=== PATIENT | female | born 1950 | race Hispanic/Latino ===

== ENCOUNTER 2017-03-10 10:43 | Emergency (ER) | payer MEDICARE, OTHER ==
[2017-03-10 10:51] VITALS: BP 127/78; PULSE 83; RESP 16; TEMP 97.6; O2SAT 96
--- NOTE | 2017-03-10 10:59 | C.PDOC ---
History Of Present Illness Patient is a 66 y/o female who presents to the ED with complaints of a rash on her trunk and back area for the past week. Patient admits to rash returning after short relief during the week. Denies using any cream or ointment, or a change in diet. Patient also admits to feeling itchy, and denies any trouble breathing. No other physical complaints at this time. Time Seen by Provider: 03/10/17 10:53 Chief Complaint (Nursing): Abnormal Skin Integrity History Per: Patient History/Exam Limitations: no limitations Onset/Duration Of Symptoms: Days Current Symptoms Are (Timing): Still Present Location Of Injury: Anterior: Abdomen, Posterior: Back Quality Of Symptoms: Itching Recent travel outside of the [place]: No Past Medical History Reviewed: Historical Data, Nursing Documentation, Vital Signs Vital Signs: Last Vital Signs Temp 97.6 F 03/10/17 10:49 Pulse 83 03/10/17 10:49 Resp 16 03/10/17 10:49 BP 127/78 03/10/17 10:49 Pulse Ox 96 03/10/17 11:23 - Medical History PMH: Hypercholesterolemia Surgical History: No Surg Hx Family History: States: No Known Family Hx - Social History Hx Alcohol Use: No Hx Substance Use: No - Immunization History Hx Influenza Vaccination: No Review Of Systems Eyes: Negative for: Pain ENT: Negative for: Ear Pain, Ear Discharge, Nose Congestion, Throat Pain Cardiovascular: Negative for: Chest Pain, Palpitations Respiratory: Negative for: Shortness of Breath Gastrointestinal: Negative for: Vomiting, Diarrhea Genitourinary: Negative for: Dysuria Musculoskeletal: Negative for: Neck Pain, Back Pain Skin: Positive for: Rash (trunk and back area. ) Neurological: Negative for: Weakness, Numbness, Headache, Dizziness Physical Exam - Physical Exam Appears: Well, Non-toxic, No Acute Distress Skin: Normal Color, Warm, Dry Head: Atraumatic, Normacephalic Eye(s): bilateral: Normal Inspection Nose: Normal, No Flaring Oral Mucosa: Moist Tongue: Normal Appearing, No Swelling Lips: Normal Appearing, No Swelling Throat: Normal, No Erythema, No Exudate, No Drooling Neck: Normal ROM Chest: Symmetrical Cardiovascular: Rhythm Regular, No Murmur Respiratory: Normal Breath Sounds, No Wheezing Extremity: Bilateral: Atraumatic, Normal Color And Temperature, Normal ROM Neurological/Psych: Oriented x3, Normal Speech, Other (no other focal defecits. ) Gait: Steady ED Course And Treatment O2 Sat by Pulse Oximetry: 96 (Room air ) Pulse Ox Interpretation: Normal Medical Decision Making Medical Decision Making: Plan: Antifungal cream was ordered and patient was told to apply BID. Suggested for patient to take Claritan or Gracie if symptoms persist. Disposition Counseled Patient/Family Regarding: Diagnosis, Need For Followup - Disposition Referrals: Rodrigo Kim [Staff Provider] - Disposition: HOME/ ROUTINE Disposition Time: 10:59 Condition: GOOD Additional Instructions: Please apply cream twice daily to affected areas Take Benadryl for any itching Follow up with master pilot if the symptoms persist Prescriptions: Miconazole 2% [Miconazole 2% Cream] 1 ea EXT BID #1 tube Instructions: Tinea Corporis (ED) Forms: [facility] (Polish) - POA Present On Arrival: None - Clinical Impression Clinical Impression: Tinea corporis - Scribe Statement The provider has reviewed the documentation as recorded by the Scribe Cristine Barrett All medical record entries made by the Scribe were at my direction and personally dictated by me. I have reviewed the chart and agree that the record accurately reflects my personal performance of the history, physical exam, medical decision making, and the department course for this patient. I have also personally directed, reviewed, and agree with the discharge instructions and disposition.
== END 2017-03-10 11:12 | disposition home or self-care (01) ==
LOC: C.ER 10:43
DX: B35.4 Tinea corporis (principal)

== ENCOUNTER 2017-06-12 08:14 | Inpatient (IN) | payer MEDICARE, OTHER ==
[2017-06-12] MEDS ORDERED: Albuterol-Ipratrop 3 mg / 0.5 (3 ml) UD IH STA (08:55)
[2017-06-12 09:28] LABS: BASO % 0.4 % (0.0-2.0); EOS % 0.3 % (0.0-4.0); HEMOGLOBIN 14.6 g/dL (11.0-16.0); LYMPH # 1.8 K/uL (1.0-4.3); LYMPH % 22.3 % (20.0-40.0); MEAN CELL VOLUME 93.1 fL (81.0-99.0); MEAN CORPUSCULAR HGB CONC 34.4 g/dL (33.0-37.0); MONO # 0.5 K/uL (0.0-0.8); MONO % 5.8 % (0.0-10.0); NEUT # 5.6 K/uL (1.8-7.0); NEUT % 71.2 % (50.0-75.0); RBC 4.56 Mil/uL (3.80-5.20); RED CELL DISTRIBUTION WIDTH 12.8 % (11.5-14.5); WHITE BLOOD COUNT 7.9 K/uL (4.8-10.8)
--- NOTE | 2017-06-12 09:28 | RAD ---
PROCEDURE: CHEST RADIOGRAPH, 1 VIEW HISTORY: SOB, cough, smoker COMPARISON: 10/31/2016 chest x-ray and CT chest 12/14/2016 FINDINGS: LUNGS: The linear opacities are partly more horizontally oriented. Discoid atelectasis and/or scarring is consistent with this no interval dense consolidation suggested. The UC referenced [address] pulmonary nodules are not appreciate on this exam -for reassessment here, if desired, CT chest imaging without contrast would be needed. PLEURA: No pneumothorax or pleural fluid seen. CARDIOVASCULAR: Normal. OSSEOUS STRUCTURES: No significant abnormalities. VISUALIZED UPPER ABDOMEN: Normal. OTHER FINDINGS: None. IMPRESSION: No interval consolidation. Left basal discoid atelectasis and/or scarring Comments: Please note the CT referenced tiny 3 mm right apical pulmonary nodule is not appreciated (and not expected to be appreciated) on this chest x-ray- given chest x-rays lesser resolution.
[2017-06-12] MEDS ORDERED: Albuterol-Ipratrop 3 mg / 0.5 (3 ml) UD ONE (09:34)
[2017-06-12 09:36] LABS: INR 1.2; PROTHROMBIN TIME 13.4 SECONDS (9.7-12.2)
[2017-06-12 09:46] LABS: ALB/GLOB RATIO 1.2 (1.0-2.1); ALT/SGPT 22 U/L (9-52); AST/SGOT 16 U/L (14-36); BLOOD UREA NITROGEN 15 mg/dL (7-17); CALCIUM 9.1 mg/dl (8.6-10.4); GFR AFRICAN-AMERICAN > 60; GFR NON-AFRICAN AMERICAN > 60; MAGNESIUM 1.6 mg/dL (1.6-2.3)
[2017-06-12 09:47] LABS: SQUAMOUS EPITHIAL < 1 /hpf (0-5); URINE BILIRUBIN NEGATIVE (NEGATIVE); URINE BLOOD 2+ (NEGATIVE); URINE CLARITY Clear (Clear); URINE COLOR Yellow (YELLOW); URINE GLUCOSE (UA) NORMAL (Normal); URINE LEUKOCYTE ESTERASE NEG Leu/uL (Negative); URINE NITRATE NEGATIVE (NEGATIVE); URINE PROTEIN 1+ mg/dL (NEGATIVE); URINE UROBILINOGEN NORMAL mg/dL (0.2-1.0)
[2017-06-12 10:00] LABS: B-TYPE NATRIURETIC PEPTIDE 288 pg/mL (0-900)
[2017-06-12] MEDS ORDERED: Lactated Ringer's 1,000 ML IVB STA (10:02)
[2017-06-12 10:18] LABS: FREE T4 1.03 ng/dL (0.78-2.19)
[2017-06-12] MEDS ORDERED: Lactated Ringer's 0 ML ONE (10:30)
[2017-06-12] MEDS ORDERED: Sodium Chloride 0.9% 1,000 ML ONE (10:34)
[2017-06-12] MEDS ORDERED: Sodium Chloride 0.9% 1,000 ML IV ONE (10:56)
--- NOTE | 2017-06-12 11:23 | CT ---
PROCEDURE: CT Chest, Abdomen and Pelvis without intravenous contrast HISTORY: Cough (smoker), weight loss, flank pain COMPARISON: Chest CT without contrast 12/14/2016. TECHNIQUE: Radiation dose: Total exam DLP = 380.55 mGy-cm. This CT exam was performed using one or more of the following dose reduction techniques: Automated exposure control, adjustment of the mA and/or kV according to patient size, and/or use of iterative reconstruction technique. FINDINGS: CT CHEST WITHOUT CONTRAST: LUNGS: Restrained motion degrades quality this examination significantly. Interval atelectasis or pneumonia is seen affecting the left lower lobe medial basilar subsegments predominantly. Underlying lesion is difficult to exclude here though one is not clearly identified. No additional potential infiltrate bilaterally. A 4 mm questionable noncalcified nodule is seen in image 30 series 4, separate from the previously described right apical 3 mm nodule which is currently not seen, likely is a function of history motion artifact. Again clinically correlate with respect to the patient fractures risk factors for lung cancer. Note is made of likely mucoid material in the dependent distal trachea with the main right and left bronchi appearing widely patent. MEDIASTINUM: Unremarkable. Normal caliber aorta and pulmonary arterial trunk. Normal size heart. LYMPH NODES: 1.4 x 1.1 cm aortopulmonary window lymph node is identified with otherwise shotty mediastinal lymph nodes seen including the bilateral hilar regions. The lack of intravenous contrast limits evaluation of the mediastinum. PLEURA: Unremarkable. No pneumothorax. No pleural effusion bilaterally. Trace pericardial effusion appears stable. BONES: Unremarkable. OTHER FINDINGS: None. CT ABDOMEN AND PELVIS: LIVER: Two stable small cysts in the left lobe liver with a dominant cyst measuring 2.3 cm. A tiny 3 mm lucency is again seen lateral to this dominant cyst remaining too small to characterize. The 2nd cyst seen more posteriorly and laterally measures only 9 mm and 5 Hounsfield units. GALLBLADDER AND BILE DUCTS: Unremarkable. PANCREAS: Unremarkable. No gross lesion or ductal dilatation. SPLEEN: Unremarkable. ADRENALS: Unremarkable. No mass. KIDNEYS AND URETERS: An obstructing left renal calculus again seen the left renal pelvis measuring 2.2 x 1.7 cm persistent moderate left hydronephrosis identified a 7.5 mm calculus is seen at the lower pole left kidney which is nonobstructive as well as an additional adjacent punctate calcification lateral to it. Pinpoint calculi are identified in the upper pole left kidney as well. A small parenchymal calcifications seen at the midpole right kidney and at the upper pole as well. No definitive intrarenal calculus seen in the right kidney. VASCULATURE: No aneurysm formation seen involving the abdominal aorta however atherosclerotic calcifications seen the inferior abdominal aorta extending into the iliac arterial system bilaterally. BOWEL: Unremarkable. No obstruction. No gross mural thickening. APPENDIX: Normal appendix. PERITONEUM: Unremarkable. No free fluid. No free air. LYMPH NODES: Unremarkable. No enlarged lymph nodes. BLADDER: Unremarkable. REPRODUCTIVE: Unremarkable. BONES: No acute fracture. OTHER FINDINGS: None. IMPRESSION: 1. Respiratory motion artifacts limit evaluation of the chest. Left lower lobe atelectasis is identified however underlying pneumonia is not excluded given medial unilateral appearance/distribution of this finding. Underlying lesion not completely excluded either and follow-up chest CT is recommended after therapy. 2. Likely stable tiny right upper lobe nodules identified. Clinically correlate with risk factors for developing lung cancer. Appears fractures are present along cast on follow-up chest CT is advised in 1 year. 3. Borderline mediastinal lymphadenopathy. 4. Trace pericardial effusion again evident. 5. Stable moderate left hydronephrosis due to an apparent 2.2 cm left renal pelvis calcification. Additional non obstructing intrarenal calculi are identified in the left kidney with none definitively shown at the right kidney. 6. Stable hepatic cysts and solitary tiny hepatic lucency left lobe, limited evaluation due lack of intravenous contrast. 7. No significant lymphadenopathy.
--- NOTE | 2017-06-12 12:08 | C.PDOC ---
Time Seen by Provider: 06/12/17 08:38 Chief Complaint (Nursing): Dizziness/Lightheaded History Per: Patient Onset/Duration Of Symptoms: Days (about 2 months) Current Symptoms Are (Timing): Worse Current Symptoms: Generalized weakness Possible Causative Factor(s): Decreased PO Intake Fall Associated With With Symptoms: No Severity: Severe Additional History Per: Prior Records - Symptoms Of CVA Recent Head Trauma: No Past Medical History Reviewed: Historical Data, Nursing Documentation, Vital Signs Vital Signs: Last Vital Signs Temp 98.9 F 06/12/17 08:23 Pulse 87 06/12/17 11:10 Resp 20 06/12/17 11:10 BP 144/82 06/12/17 11:10 Pulse Ox 94 L 06/12/17 11:11 - Medical History PMH: COPD (?), Hypercholesterolemia, Kidney Stones Surgical History: No Surg Hx Family History: States: Unknown Family Hx - Social History Hx Tobacco Use: Yes Hx Alcohol Use: No Hx Substance Use: No - Immunization History Hx Tetanus Toxoid Vaccination: No Hx Influenza Vaccination: Yes Hx Pneumococcal Vaccination: No Review Of Systems Except As Marked, All Systems Reviewed And Found Negative. Constitutional: Positive for: Weakness, Malaise, Weight loss (Pt states she had 80 pounds of unintentional weight loss) Respiratory: Positive for: Cough, Shortness of Breath, Sputum Gastrointestinal: Negative for: Vomiting, Diarrhea Musculoskeletal: Positive for: Back Pain. Negative for: Neck Pain Skin: Negative for: Rash Neurological: Negative for: Seizures Physical Exam - Physical Exam Appears: Chronically Ill, Other (Cachectic) Skin: Normal Color, Warm, Dry, No Rash Head: Atraumatic, Normacephalic Eye(s): bilateral: PERRL, EOMI Oral Mucosa: Dry Neck: Normal ROM, Supple Cardiovascular: Rhythm Regular Respiratory: Rhonchi (left lower) Gastrointestinal/Abdominal: Soft, No Tenderness Back: CVA Tenderness (left) Extremity: Normal ROM, No Pedal Edema Neurological/Psych: Oriented x3, Normal Motor, Normal Sensation ED Course And Treatment - Laboratory Results Result Diagrams: 06/12/17 09:22 06/12/17 09:22 ECG: Interpreted By Me, Viewed By Me ECG Rhythm: Sinus Rhythm, Nonspecific Changes Rate From EC O2 Sat by Pulse Oximetry: 90 (on RA) Pulse Ox Interpretation: Abnormal Interpretation Of Abnormal: Hypoxia on RA - CT Scan/US CT Chest/Abdomen Other Rad Studies (CT/US): Read By Radiologist, Radiology Report Reviewed CT/US Interpretation: IMPRESSION: 1. Respiratory motion artifacts limit evaluation of the chest. Left lower lobe atelectasis is identified however underlying pneumonia is not excluded given medial unilateral appearance/ distribution of this finding. Underlying lesion not completely excluded either and follow-up chest CT is recommended after therapy. 2. Likely stable tiny right upper lobe nodules identified. Clinically correlate with risk factors for developing lung cancer. Appears fractures are present along cast on follow- up chest CT is advised in 1 year. 3. Borderline mediastinal lymphadenopathy. 4. Trace pericardial effusion again evident. 5. Stable moderate left hydronephrosis due to an apparent 2.2 cm left renal pelvis calcification. Additional non obstructing intrarenal calculi are identified in the left kidney with none definitively shown at the right kidney. 6. Stable hepatic cysts and solitary tiny hepatic lucency left lobe, limited evaluation due lack of intravenous contrast. 7. No significant lymphadenopathy. Progress - Interventions Interventions:: Observation, Intravenous fluid, Oxygen - Medications Administered Inhaled nebulized: Anticholinergic, Beta-2 agonist - Data Reviewed Data Reviewed: Lab, Diagnostic imaging, EKG, Old records - Patient Status Patient status: Unchanged - Continuity of Care Discussed patient case with:: Patient, ED Nurse, Covering for PMD - Patient Plan Patient Plan: Admission Disposition Discussed With : Bryson Schwab Comment: He accepted pt on hospitalist service. Doctor Will See Patient In The: Hospital Counseled Patient/Family Regarding: Studies Performed, Diagnosis, Smoking Cessation - Disposition Disposition: HOSPITALIZED Disposition Time: 12:11 Condition: FAIR Instructions: Weakness (ED) - Clinical Impression Clinical Impression: Generalized weakness, Weight loss, Hydronephrosis of left kidney, LLL pneumonia
[2017-06-12] MEDS ORDERED: cefTRIAXone IV 1 gm in Dextros 50 ML IVPB ONE (12:12)
[2017-06-12] MEDS ORDERED: Potassium Chloride 20 mEq ER Tab PO ONE ×2 (12:30→13:14)
--- NOTE | 2017-06-12 13:42 | CP.PCM.HP ---
<Vitaly Louis Savannah - Last Filed: 06/12/17 15:14> History of Present Illness - History of Present Illness History of Present Illness: CC: "I feel dizzy" HPI: Mrs House is a 67 year old indonesian speaking female who presented to the ER by ambulance for 2 weeks of worsening dizziness and lightheadedness. She states that she occasionally feels as if the room is spinning. She denies syncopal episodes or falls. 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 She is a current smoker and has a 40 pack year smoking history. She states that she's lost 80 lbs in the last 3 months secondary to decreased appetite. 2 months ago she was diagnosed with pneumonia and completed a 2 week course of antibiotics. She states that since that time she has had a productive cough with white sputum production, which is worse in the mornings. In 12/2016 she had a breast ultrasound/mammography which showed a hypoechoic nodule in the right breast, possibly a solid nodule, which was a low suspicion for malignancy. She denies chest pain, abdominal pain, dysuria, fever, chills, nausea, vomiting, focal deficits, seizure activity, diarrhea. 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 absent: Chills, Fever - EENT Eyes: absent: Change in Vision Nose/Mouth/Throat: absent: Nasal Congestion - Cardiovascular Cardiovascular: absent: Chest Pain - Respiratory Respiratory: Cough, Dyspnea, Dyspnea on Exertion. absent: Hemoptysis - Gastrointestinal Gastrointestinal: absent: Abdominal Pain - Genitourinary Genitourinary: absent: Change in Urinary Stream, Dysuria - Reproductive: Female Reproductive:Female: Post Menopausal - Musculoskeletal Musculoskeletal: Back Pain - Integumentary Integumentary: absent: Changing Lesions - Neurological Neurological: Dizziness, Vertigo. absent: Frequent Falls Past Patient History - Past Social History Smoking Status: Heavy Smoker > 10 Cigarettes Daily - CARDIAC Hx Hypercholesterolemia: Yes - PULMONARY Hx Chronic Obstructive Pulmonary Disease (COPD): Yes (?) - RENAL Hx Kidney Stones: Yes - PSYCHIATRIC Hx Substance Use: No - SURGICAL HISTORY Hx Surgeries: No - ANESTHESIA Hx Anesthesia: No Hx Anesthesia Reactions: No Meds Allergies/Adverse Reactions: Allergies Allergy/AdvReac Type Severity Reaction Status Date / Time No Known Allergies Allergy Verified 06/12/17 08:26 Physical Exam - Constitutional Appears: No Acute Distress, Cachectic - Head Exam Head Exam: ATRAUMATIC, NORMAL INSPECTION - Eye Exam Eye Exam: EOMI Pupil Exam: PERRL - ENT Exam ENT Exam: Mucous Membranes Moist - Neck Exam Neck exam: Positive for: Full Rom, Normal Inspection - Respiratory Exam Respiratory Exam: Decreased Breath Sounds, Rhonchi Additional comments: Bibasilar rhonchi and decreased breath sounds throughout - Cardiovascular Exam Cardiovascular Exam: REGULAR RHYTHM. absent: Bradycardia, Tachycardia, JVD, Systolic Murmur - GI/Abdominal Exam GI & Abdominal Exam: Normal Bowel Sounds, Soft. absent: Distended, Firm, Guarding, Tenderness - Extremities Exam Extremities exam: Positive for: normal capillary refill, normal inspection, pedal pulses present - Back Exam Back exam: CVA tenderness (L), NORMAL INSPECTION - Neurological Exam Neurological exam: Alert, Oriented x3 - Psychiatric Exam Psychiatric exam: Normal Affect, Normal Mood - Skin Skin Exam: Intact, Normal Color, Warm Additional comments: dermatitis stasis in left lower extremity near ankle Results - Vital Signs Recent Vital Signs: Last Vital Signs Temp 99.1 F 06/12/17 13:32 Pulse 90 06/12/17 13:32 Resp 20 06/12/17 13:32 BP 159/83 H 06/12/17 13:32 Pulse Ox 92 L 06/12/17 13:32 - Labs Result Diagrams: 06/12/17 09:22 06/12/17 09:22 Labs: Laboratory Results - last 24 hr 06/12/17 06/12/17 06/12/17 09:22 09:22 09:22 WBC 7.9 RBC 4.56 Hgb 14.6 Hct 42.5 MCV 93.1 MCH 32.0 H MCHC 34.4 RDW 12.8 Plt Count 231 MPV 7.0 L Neut % (Auto) 71.2 Lymph % (Auto) 22.3 [place] % (Auto) 5.8 Eos % (Auto) 0.3 Baso % (Auto) 0.4 Neut # 5.6 Lymph # 1.8 [place] # 0.5 Eos # 0.0 Baso # 0.0 PT 13.4 H INR 1.2 APTT 30 Sodium 134 Potassium 3.5 L Chloride 93 L Carbon Dioxide 37 H Anion Gap 8 L BUN 15 Creatinine 0.4 L Est GFR ( Amer) > 60 Est GFR (Non-Af Amer) > 60 Random Glucose 114 H Calcium 9.1 Phosphorus 3.2 Magnesium 1.6 Total Bilirubin 0.8 AST 16 ALT 22 Alkaline Phosphatase 39 Troponin I < 0.0120 NT-Pro-B Natriuret Pep 288 Total Protein 7.4 Albumin 4.0 Globulin 3.4 Albumin/Globulin Ratio 1.2 Free T4 TSH 3rd Generation Urine Color Urine Clarity Urine pH Ur Specific [place] Urine Protein Urine Glucose (UA) Urine Ketones Urine Blood Urine Nitrate Urine Bilirubin Urine Urobilinogen Ur Leukocyte Esterase Urine WBC (Auto) Urine RBC (Auto) Ur Squamous Epith Cells 06/12/17 06/12/17 09:22 09:37 WBC RBC Hgb Hct MCV MCH MCHC RDW Plt Count MPV Neut % (Auto) Lymph % (Auto) [place] % (Auto) Eos % (Auto) Baso % (Auto) Neut # Lymph # [place] # Eos # Baso # PT INR APTT Sodium Potassium Chloride Carbon Dioxide Anion Gap BUN Creatinine Est GFR ( Amer) Est GFR (Non-Af Amer) Random Glucose Calcium Phosphorus Magnesium Total Bilirubin AST ALT Alkaline Phosphatase Troponin I NT-Pro-B Natriuret Pep Total Protein Albumin Globulin Albumin/Globulin Ratio Free T4 1.03 TSH 3rd Generation 0.65 Urine Color Yellow Urine Clarity Clear Urine pH 7.0 Ur Specific [place] 1.014 Urine Protein 1+ H Urine Glucose (UA) Normal Urine Ketones Negative Urine Blood 2+ H Urine Nitrate Negative Urine Bilirubin Negative Urine Urobilinogen Normal Ur Leukocyte Esterase Neg Urine WBC (Auto) 4 Urine RBC (Auto) 32 H Ur Squamous Epith Cells < 1 Assessment & Plan (1) Borderline low O2 saturation Assessment and Plan: 40 pack year smoking hx; productive cough w/ white sputum for 2 months; recently treated for pneumonia in 03/2017; Atelectasis vs pneumonia; No leukocytosis, afebrile Pulmonology consult, Dr Pineda Nasal cannula 2L ABG ordered for baseline values F/U mycoplasma, legionella, strep pneumoniae F/U procalcitonin F/U blood culture, urine culture, sputum culture Imaging: CT chest/abd/pelvis 06/12: (1) Respiratory motion artifacts limit evaluation of the chest. Left lower lobe atelectasis is identified however underlying pneumonia is not excluded given medial unilateral appearance/distribution of this finding. Underlying lesion not completely excluded either and follow-up chest CT is recommended after therapy. (2) Likely stable tiny right upper lobe nodules identified. Clinically correlate with risk factors for developing lung cancer. Appears fractures are present along cast on follow-up chest CT is advised in 1 year. Meds: Duonebs INH Q6h PRN Moxifloxacin 400mg IVPB QD started 06/12 Status: Acute (2) Hypertension Assessment and Plan: Con't home med lisinopril 10mg PO QD Status: Acute (3) Hyperlipidemia Assessment and Plan: F/U lipid panel Con't home med crestor 20mg PO HS Status: Acute (4) Smoking greater than 40 pack years Assessment and Plan: 40 pack year smoking history; currently smokes 1/2 pack per day Prescribed chantix outpatient but not compliant Nicotine patch TD QD Status: Acute (5) Weight loss, unintentional Assessment and Plan: 90 lb weight loss in 3 months 2/2 decreased appetite; 40 pack year smoking hx; prescribed cyproheptadine outpatient but pt states it did not help her Heme/Onc consult, Dr Page F/U vitamin B12, Folate, Iron Studies F/U HIV panel, hepatitis panel Imaging: Breast ultrasound/mammography 12/2016: Hypoechoic nodule in the 5-6 o'clock axis of the right breast with mild macro lobulation, possibly solid nodule. Low suspicion for malignancy. BIRADS 3. Status: Acute (6) Prophylactic measure Assessment and Plan: Protonix 40mg PO QD SCDs, Heparin 5000u SC Q8H Heart Healthy Diet Status: Acute <Bryson Schwab H - Last Filed: 06/12/17 17:54> Results - Vital Signs Recent Vital Signs: Last Vital Signs Temp 98.7 F 06/12/17 15:00 Pulse 85 06/12/17 15:00 Resp 20 06/12/17 15:00 BP 137/83 06/12/17 15:00 Pulse Ox 93 L 06/12/17 15:00 - Labs Result Diagrams: 06/12/17 09:22 06/12/17 09:22 Labs: Laboratory Results - last 24 hr 06/12/17 06/12/17 06/12/17 09:22 09:22 09:22 WBC 7.9 RBC 4.56 Hgb 14.6 Hct 42.5 MCV 93.1 MCH 32.0 H MCHC 34.4 RDW 12.8 Plt Count 231 MPV 7.0 L Neut % (Auto) 71.2 Lymph % (Auto) 22.3 [place] % (Auto) 5.8 Eos % (Auto) 0.3 Baso % (Auto) 0.4 Neut # 5.6 Lymph # 1.8 [place] # 0.5 Eos # 0.0 Baso # 0.0 PT 13.4 H INR 1.2 APTT 30 Sodium 134 Potassium 3.5 L Chloride 93 L Carbon Dioxide 37 H Anion Gap 8 L BUN 15 Creatinine 0.4 L Est GFR ( Amer) > 60 Est GFR (Non-Af Amer) > 60 Random Glucose 114 H Hemoglobin A1c Calcium 9.1 Phosphorus 3.2 Magnesium 1.6 Iron Total Bilirubin 0.8 AST 16 ALT 22 Alkaline Phosphatase 39 Troponin I < 0.0120 NT-Pro-B Natriuret Pep 288 Total Protein 7.4 Albumin 4.0 Globulin 3.4 Albumin/Globulin Ratio 1.2 Free T4 TSH 3rd Generation Urine Color Urine Clarity Urine pH Ur Specific [place] Urine Protein Urine Glucose (UA) Urine Ketones Urine Blood Urine Nitrate Urine Bilirubin Urine Urobilinogen Ur Leukocyte Esterase Urine WBC (Auto) Urine RBC (Auto) Ur Squamous Epith Cells 06/12/17 06/12/17 06/12/17 09:22 09:37 17:10 WBC RBC Hgb Hct MCV MCH MCHC RDW Plt Count MPV Neut % (Auto) Lymph % (Auto) [place] % (Auto) Eos % (Auto) Baso % (Auto) Neut # Lymph # [place] # Eos # Baso # PT INR APTT Sodium Potassium Chloride Carbon Dioxide Anion Gap BUN Creatinine Est GFR ( Amer) Est GFR (Non-Af Amer) Random Glucose Hemoglobin A1c 5.7 Calcium Phosphorus Magnesium Iron Total Bilirubin AST ALT Alkaline Phosphatase Troponin I NT-Pro-B Natriuret Pep Total Protein Albumin Globulin Albumin/Globulin Ratio Free T4 1.03 TSH 3rd Generation 0.65 Urine Color Yellow Urine Clarity Clear Urine pH 7.0 Ur Specific [place] 1.014 Urine Protein 1+ H Urine Glucose (UA) Normal Urine Ketones Negative Urine Blood 2+ H Urine Nitrate Negative Urine Bilirubin Negative Urine Urobilinogen Normal Ur Leukocyte Esterase Neg Urine WBC (Auto) 4 Urine RBC (Auto) 32 H Ur Squamous Epith Cells < 1 06/12/17 17:10 WBC RBC Hgb Hct MCV MCH MCHC RDW Plt Count MPV Neut % (Auto) Lymph % (Auto) [place] % (Auto) Eos % (Auto) Baso % (Auto) Neut # Lymph # [place] # Eos # Baso # PT INR APTT Sodium Potassium Chloride Carbon Dioxide Anion Gap BUN Creatinine Est GFR ( Amer) Est GFR (Non-Af Amer) Random Glucose Hemoglobin A1c Calcium Phosphorus Magnesium Iron 17 L Total Bilirubin AST ALT Alkaline Phosphatase Troponin I NT-Pro-B Natriuret Pep Total Protein Albumin Globulin Albumin/Globulin Ratio Free T4 TSH 3rd Generation Urine Color Urine Clarity Urine pH Ur Specific [place] Urine Protein Urine Glucose (UA) Urine Ketones Urine Blood Urine Nitrate Urine Bilirubin Urine Urobilinogen Ur Leukocyte Esterase Urine WBC (Auto) Urine RBC (Auto) Ur Squamous Epith Cells Attending/Attestation - Attestation I have personally seen and examined this patient.: Yes I have fully participated in the care of the patient.: Yes I have reviewed all pertinent clinical information: Yes Notes (Text): 06/12/17 17:54 Medical attending: Patient was seen and examined by me, reviewed the above note by claim review medical director and agree. This is a very nice 67-year-old female who unfortunately may have some underlying malignancy. She reports having almost a 90 pound weight loss over short period of time. She also reports a very poor appetite. She appears very cachectic and weak in appearance. There is a history of heavy smoking, as well as a history of potentially suspicious breast lesions. She has had mammograms and breast ultrasounds. CT scan of the chest abdomen and pelvis was done, the areas the chest suggests several findings which may include pneumonia, atelectasis, and possibly a malignancy. At this time to have the patient on IV antibiotics. We're also checking cultures as well Because of her heavy smoking history she has a low SPO2 on room air. The numbers that I saw that were recorded were in the 90, 91, and 92. We suggested that she wear nasal cannula however she refused this. She is probably a CO2 retainer as her serum bicarbonate is 34. Regular check an ABG as well just to the see if this matches up. Because of the extensive history of smoking, weight loss, or suspicions for potential lung malignancy is higher than usual so will try to the patient to have a pulmonology evaluation as well as a hematology oncology evaluation Thank you very much, Bryson Schwab
[2017-06-12] MEDS ORDERED: Moxifloxacin IV 400mg/250ml NS 400 MG/250 ML BAG IVPB SCH (14:45)
[2017-06-12] MEDS: Azithromycin 500 MG in Sodium Chloride 0.9% 250 ML IVPB ONE ×2 (14:47→17:48)
[2017-06-12] MEDS ORDERED: Azithromycin 500 MG in Sodium Chloride 0.9% 250 ML IVPB ONE (16:00)
[2017-06-12 17:45] LABS: IRON 17 ug/dL (37-170)
[2017-06-12 17:55] LABS: TOTAL IRON BINDING CAPACITY 200 ug/dL (250-450)
[2017-06-12 17:59] LABS: % IRON SATURATION 9 (20-55)
--- NOTE | 2017-06-12 18:00 | CP.PCM.CON ---
History of Present Illness - History of Present Illness History of Present Illness: 67 year old female with a history of long standing tobacco abuse, presenting to the ER for weakness and unintentional weightloss. The patient reports to losing about 70 pounds consistently over 3 years. She notes her appetite has been slowly diminishing and she does not eat much. She denies fevers and chills. She denies abnormal bleeding and bruising. She is unsure if she is depressed. Past medical history: Tobacco abuse, unintentional weightloss Past surgical history: Denies Family history: Denies hematologic and oncologic problems Social history: 1/2 ppd x 40 years, denies alcohol, and illicit drug use. Allergies: NKA Review of systems: All remaining review of systems including HEENT, cardiovascular, respiratory, gastrointestinal, genitourinary, musculoskeletal, dermatologic, neurologic and psychiatric are negative unless mentioned in the HPI. Past Patient History - Past Medical History & Family History Past Medical History?: Yes - Past Social History Smoking Status: Heavy Smoker > 10 Cigarettes Daily - CARDIAC Hx Hypercholesterolemia: Yes - PULMONARY Hx Chronic Obstructive Pulmonary Disease (COPD): Yes (?) - RENAL Hx Kidney Stones: Yes - MUSCULOSKELETAL/RHEUMATOLOGICAL Hx Falls: No - PSYCHIATRIC Hx Substance Use: No - SURGICAL HISTORY Hx Surgeries: No - ANESTHESIA Hx Anesthesia: No Hx Anesthesia Reactions: No Meds Allergies/Adverse Reactions: Allergies Allergy/AdvReac Type Severity Reaction Status Date / Time No Known Allergies Allergy Verified 06/12/17 08:26 - Medications Medications: Current Medications Albuterol/Ipratropium (Duoneb 3 Mg/0.5 Mg (3 Ml) Ud) 3 ml INH RQ6 PRN PRN Reason: Shortness of Breath Heparin Sodium (Porcine) (Heparin) 5,000 units SC Q8 [facility] Lisinopril (Zestril) 10 mg PO QAM [facility] Moxifloxacin HCl (Avelox) 400 mg PO DAILY [facility] Last Admin: 06/12/17 17:46 Dose: 400 mg Nicotine (Nicoderm Cq) 1 patch TD DAILY [facility] Pantoprazole Sodium (Protonix Ec Tab) 40 mg PO DAILY [facility] Rosuvastatin Calcium (Crestor) 20 mg PO HS [facility] Physical Exam - Head Exam Head Exam: ATRAUMATIC - Eye Exam Eye Exam: Normal appearance - ENT Exam ENT Exam: Mucous Membranes Dry - Respiratory Exam Respiratory Exam: NORMAL BREATHING PATTERN - Cardiovascular Exam Cardiovascular Exam: +S1, +S2 - GI/Abdominal Exam GI & Abdominal Exam: Normal Bowel Sounds - Extremities Exam Extremities exam: Positive for: normal inspection - Neurological Exam Neurological exam: Oriented x3 - Psychiatric Exam Psychiatric exam: Normal Affect, Normal Mood - Skin Skin Exam: Warm Results - Vital Signs Recent Vital Signs: Last Vital Signs Temp 98.7 F 06/12/17 15:00 Pulse 85 06/12/17 15:00 Resp 20 06/12/17 15:00 BP 137/83 06/12/17 15:00 Pulse Ox 93 L 06/12/17 15:00 - Labs Result Diagrams: 06/12/17 09:22 06/12/17 09:22 Labs: Laboratory Results - last 24 hr 06/12/17 06/12/17 06/12/17 09:22 09:22 09:22 WBC 7.9 RBC 4.56 Hgb 14.6 Hct 42.5 MCV 93.1 MCH 32.0 H MCHC 34.4 RDW 12.8 Plt Count 231 MPV 7.0 L Neut % (Auto) 71.2 Lymph % (Auto) 22.3 [place] % (Auto) 5.8 Eos % (Auto) 0.3 Baso % (Auto) 0.4 Neut # 5.6 Lymph # 1.8 [place] # 0.5 Eos # 0.0 Baso # 0.0 PT 13.4 H INR 1.2 APTT 30 Sodium 134 Potassium 3.5 L Chloride 93 L Carbon Dioxide 37 H Anion Gap 8 L BUN 15 Creatinine 0.4 L Est GFR ( Amer) > 60 Est GFR (Non-Af Amer) > 60 Random Glucose 114 H Hemoglobin A1c Calcium 9.1 Phosphorus 3.2 Magnesium 1.6 Iron Total Bilirubin 0.8 AST 16 ALT 22 Alkaline Phosphatase 39 Troponin I < 0.0120 NT-Pro-B Natriuret Pep 288 Total Protein 7.4 Albumin 4.0 Globulin 3.4 Albumin/Globulin Ratio 1.2 Free T4 TSH 3rd Generation Urine Color Urine Clarity Urine pH Ur Specific [place] Urine Protein Urine Glucose (UA) Urine Ketones Urine Blood Urine Nitrate Urine Bilirubin Urine Urobilinogen Ur Leukocyte Esterase Urine WBC (Auto) Urine RBC (Auto) Ur Squamous Epith Cells 06/12/17 06/12/17 06/12/17 09:22 09:37 17:10 WBC RBC Hgb Hct MCV MCH MCHC RDW Plt Count MPV Neut % (Auto) Lymph % (Auto) [place] % (Auto) Eos % (Auto) Baso % (Auto) Neut # Lymph # [place] # Eos # Baso # PT INR APTT Sodium Potassium Chloride Carbon Dioxide Anion Gap BUN Creatinine Est GFR ( Amer) Est GFR (Non-Af Amer) Random Glucose Hemoglobin A1c 5.7 Calcium Phosphorus Magnesium Iron Total Bilirubin AST ALT Alkaline Phosphatase Troponin I NT-Pro-B Natriuret Pep Total Protein Albumin Globulin Albumin/Globulin Ratio Free T4 1.03 TSH 3rd Generation 0.65 Urine Color Yellow Urine Clarity Clear Urine pH 7.0 Ur Specific [place] 1.014 Urine Protein 1+ H Urine Glucose (UA) Normal Urine Ketones Negative Urine Blood 2+ H Urine Nitrate Negative Urine Bilirubin Negative Urine Urobilinogen Normal Ur Leukocyte Esterase Neg Urine WBC (Auto) 4 Urine RBC (Auto) 32 H Ur Squamous Epith Cells < 1 06/12/17 17:10 WBC RBC Hgb Hct MCV MCH MCHC RDW Plt Count MPV Neut % (Auto) Lymph % (Auto) [place] % (Auto) Eos % (Auto) Baso % (Auto) Neut # Lymph # [place] # Eos # Baso # PT INR APTT Sodium Potassium Chloride Carbon Dioxide Anion Gap BUN Creatinine Est GFR ( Amer) Est GFR (Non-Af Amer) Random Glucose Hemoglobin A1c Calcium Phosphorus Magnesium Iron 17 L Total Bilirubin AST ALT Alkaline Phosphatase Troponin I NT-Pro-B Natriuret Pep Total Protein Albumin Globulin Albumin/Globulin Ratio Free T4 TSH 3rd Generation Urine Color Urine Clarity Urine pH Ur Specific [place] Urine Protein Urine Glucose (UA) Urine Ketones Urine Blood Urine Nitrate Urine Bilirubin Urine Urobilinogen Ur Leukocyte Esterase Urine WBC (Auto) Urine RBC (Auto) Ur Squamous Epith Cells Assessment & Plan (1) Unintended weight loss Assessment and Plan: recommend CT chest, abdomen, and pelvis with PO + IV contrast to rule out occult malignancy ? COPD related; pulmonary evaluation Thank you for this interesting consult. Status: Acute
[2017-06-12 18:18] LABS: HEPATITIS B SURFACE AG NEGATIVE (NEGATIVE)
[2017-06-12 18:24] LABS: HEPATITIS A IGM NEGATIVE (NEGATIVE); HEPATITIS B CORE AB Negative (NEGATIVE)
[2017-06-12 18:36] LABS: HEPATITIS C ANTIBODY Negative (NEGATIVE)
[2017-06-12 18:57] LABS: FOLATE 14.4 ng/mL
--- NOTE | 2017-06-13 07:36 | CP.PCM.PN ---
<Vitaly Louis - Last Filed: 06/13/17 12:20> Subjective - Date & Time of Evaluation Date of Evaluation: 06/13/17 Time of Evaluation: 07:29 - Subjective Subjective: PGY-[address] Schwab. No acute events overnight. Patient stated she feels weak. She ate 50% of her breakfast. She slept well and is able to ambulate with some dizziness. She denied chest pain, abdominal pain, shortness of breath, focal deficits, fever, nausea, vomiting. Objective - Vital Signs/Intake and Output Vital Signs (last 24 hours): Temp Pulse Resp BP Pulse Ox 98.1 F 70 20 138/83 94 L 06/13/17 00:00 06/13/17 00:00 06/13/17 00:00 06/13/17 00:00 06/13/17 00:00 Intake and Output: 06/13/17 06/13/17 06:59 18:59 Intake Total 1000 Balance 1000 - Medications Medications: Current Medications Albuterol/Ipratropium (Duoneb 3 Mg/0.5 Mg (3 Ml) Ud) 3 ml INH RQ6 PRN PRN Reason: Shortness of Breath Heparin Sodium (Porcine) (Heparin) 5,000 units SC Q8 [facility] Last Admin: 06/13/17 06:02 Dose: Not Given Lisinopril (Zestril) 10 mg PO QAM [facility] Moxifloxacin HCl (Avelox) 400 mg PO DAILY [facility] Last Admin: 06/12/17 17:46 Dose: 400 mg Nicotine (Nicoderm Cq) 1 patch TD DAILY [facility] Pantoprazole Sodium (Protonix Ec Tab) 40 mg PO DAILY [facility] Rosuvastatin Calcium (Crestor) 20 mg PO HS [facility] Last Admin: 06/12/17 21:27 Dose: 20 mg - Labs Labs: 06/12/17 09:22 06/12/17 09:22 PT 13.4 SECONDS (9.7-12.2) H 06/12/17 09:22 INR 1.2 06/12/17 09:22 APTT 30 SECONDS (21-34) 06/12/17 09:22 - Additional Findings Additional findings: - Constitutional Appears: No Acute Distress, Cachectic - Head Exam Head Exam: ATRAUMATIC, NORMAL INSPECTION - Eye Exam Eye Exam: EOMI Pupil Exam: PERRL - ENT Exam ENT Exam: Mucous Membranes Moist - Neck Exam Neck exam: Positive for: Full Rom, Normal Inspection - Respiratory Exam Respiratory Exam: Decreased Breath Sounds, Rhonchi Additional comments: Bibasilar rhonchi and decreased breath sounds throughout - Cardiovascular Exam Cardiovascular Exam: REGULAR RHYTHM. absent: Bradycardia, Tachycardia, JVD, Systolic Murmur - GI/Abdominal Exam GI & Abdominal Exam: Normal Bowel Sounds, Soft. absent: Distended, Firm, Guarding, Tenderness - Extremities Exam Extremities exam: Positive for: normal capillary refill, normal inspection, pedal pulses present - Back Exam Back exam: CVA tenderness (L), NORMAL INSPECTION - Neurological Exam Neurological exam: Alert, Oriented x3 - Psychiatric Exam Psychiatric exam: Normal Affect, Normal Mood - Skin Skin Exam: Intact, Normal Color, Warm Additional comments: dermatitis stasis in left lower extremity near ankle Assessment and Plan (1) Borderline low O2 saturation Status: Acute (2) Hypertension Status: Acute (3) Hyperlipidemia Status: Acute (4) Smoking greater than 40 pack years Status: Acute (5) Weight loss, unintentional Status: Acute (6) Prophylactic measure Status: Acute - Assessment and Plan (Free Text) Assessment: (1) Borderline low O2 saturation Assessment and Plan: 40 pack year smoking hx; productive cough w/ white sputum for 2 months; recently treated for pneumonia in 03/2017; Atelectasis vs pneumonia; No leukocytosis, afebrile Pulmonology consult, Dr Pineda Nasal cannula 2L ABG ordered for baseline values F/U mycoplasma, legionella, strep pneumoniae procalcitonin < 0.05 NEGATIVE F/U blood culture, urine culture, sputum culture Imaging: F/U CT chest/abd/pelvis w/ PO and IV contrast to rule out occult malignancy CT chest/abd/pelvis 06/12: (1) Respiratory motion artifacts limit evaluation of the chest. Left lower lobe atelectasis is identified however underlying pneumonia is not excluded given medial unilateral appearance/distribution of this finding. Underlying lesion not completely excluded either and follow-up chest CT is recommended after therapy. (2) Likely stable tiny right upper lobe nodules identified. Clinically correlate with risk factors for developing lung cancer. Appears fractures are present along cast on follow-up chest CT is advised in 1 year. Meds: Duonebs INH Q6h PRN Moxifloxacin 400mg IVPB QD started 06/12 Status: Acute (2) Hypertension Assessment and Plan: Con't home med lisinopril 10mg PO QD Status: Acute (3) Hyperlipidemia Assessment and Plan: Lipid panel NORMAL Con't home med crestor 20mg PO HS Status: Acute (4) Smoking greater than 40 pack years Assessment and Plan: 40 pack year smoking history; currently smokes 1/2 pack per day Prescribed chantix outpatient but not compliant Nicotine patch TD QD Status: Acute (5) Weight loss, unintentional Assessment and Plan: 90 lb weight loss in 3 months 2/2 decreased appetite; 40 pack year smoking hx; prescribed cyproheptadine outpatient but pt states it did not help her Heme/Onc consult, Dr Page vitamin B12 703, Folate 14.4, Iron 17 (Low), TIBC 200 (Low), %Saturation 9 (Low) , Ferritin 363 HIV panel NEGATIVE, hepatitis panel NEGATIVE Megestrol 40mg PO QD to stimulate appetite Psychiatry consult, Dr Blanchard - to evaluate for depression, F/U recs Imaging: F/U CT chest/abd/pelvis w/ PO and IV contrast to rule out occult malignancy Breast ultrasound/mammography 12/2016: Hypoechoic nodule in the 5-6 o'clock axis of the right breast with mild macro lobulation, possibly solid nodule. Low suspicion for malignancy. BIRADS 3. Status: Acute (6) Iron Deficiency w/o anemia; likely 2/2 to poor po intake Ferrlecit 125mg IVPB QD x2 (7) Prophylactic measure Assessment and Plan: Protonix 40mg PO QD SCDs, Heparin 5000u SC Q8H Heart Healthy Diet Daughter, [place], #[phone] Status: Acute Case discussed with attending Dr Schwab. <Bryson Schwab H - Last Filed: 06/13/17 14:59> Objective - Vital Signs/Intake and Output Vital Signs (last 24 hours): Temp Pulse Resp BP Pulse Ox 98.5 F 88 20 124/79 93 L 06/13/17 07:22 06/13/17 07:22 06/13/17 07:22 06/13/17 07:22 06/13/17 07:22 Intake and Output: 06/13/17 06/13/17 06:59 18:59 Intake Total 1150 Balance 1150 - Medications Medications: Current Medications Albuterol/Ipratropium (Duoneb 3 Mg/0.5 Mg (3 Ml) Ud) 3 ml INH RQ6 PRN PRN Reason: Shortness of Breath Heparin Sodium (Porcine) (Heparin) 5,000 units SC Q8 [facility] Last Admin: 06/13/17 14:02 Dose: 5,000 units Ferric Sodium Gluconate Complex 125 mg/ Sodium Chloride 110 mls @ 110 mls/hr IVPB DAILY [facility] Stop: 06/21/17 13:31 Last Admin: 06/13/17 13:34 Dose: 110 mls/hr Dextrose (Dextrose 5% In Water 1000 Ml) 1,000 mls @ 60 mls/hr IV .[id number] [facility] Stop: 06/14/17 14:01 Last Admin: 06/13/17 14:04 Dose: 60 mls/hr Lisinopril (Zestril) 10 mg PO QAM [facility] Last Admin: 06/13/17 09:02 Dose: 10 mg Megestrol Acetate (Megace) 40 mg PO DAILY [facility] Last Admin: 06/13/17 14:16 Dose: 40 mg Methylprednisolone (Solu-Medrol) 40 mg IV Q6 [facility] Moxifloxacin HCl (Avelox) 400 mg PO DAILY [facility] Last Admin: 06/13/17 09:02 Dose: 400 mg Nicotine (Nicoderm Cq) 1 patch TD DAILY [facility] Last Admin: 06/13/17 09:09 Dose: 1 patch Pantoprazole Sodium (Protonix Ec Tab) 40 mg PO DAILY [facility] Last Admin: 06/13/17 09:02 Dose: 40 mg Promethazine HCl/Dextromethorphan (Phenergan Dm Syrup) 5 ml PO Q6H [facility] Stop: 06/15/17 14:01 Last Admin: 06/13/17 14:16 Dose: 5 ml Rosuvastatin Calcium (Crestor) 20 mg PO HS [facility] Last Admin: 06/12/17 21:27 Dose: 20 mg Tiotropium Sigel (Spiriva) 18 mcg INH RQ24 [facility] Tiotropium Sigel (Spiriva Inhalation Handihaler Device) 1 inhaler INH ONCE ONE Stop: 06/14/17 08:01 - Labs Labs: 06/13/17 11:25 06/13/17 11:25 PT 13.4 SECONDS (9.7-12.2) H 06/12/17 09:22 INR 1.2 06/12/17 09:22 APTT 30 SECONDS (21-34) 06/12/17 09:22 Attending/Attestation - Attestation I have personally seen and examined this patient.: Yes I have fully participated in the care of the patient.: Yes I have reviewed all pertinent clinical information, including history, physical exam and plan: Yes Notes (Text): 06/13/17 14:59 Medical attending: Patient was seen and examined by me, agrees the above note by medical delivery driver. When we saw the patient, she was not under any acute distress. She denied having any abdominal pain, denied chest pain, and also denied shortness of breath as well. However when we asked her if she was eating she again said that she had no appetite does not want to eat. Regarding try her on Megace orally to see if this could help stimulate her appetite while she's here. Lab work from overnight reveals that she does have some iron deficiency, she's will be on some IV Ferrlecit when she is here. As mentioned previously she has had a substantial amount of weightloss. She has a strong history of smoking. When she came into the emergency room she had a CAT scan of the chest did suggest possible atelectasis versus pneumonia - and she's been started on IV antibiotics for the time being this is per pulmonology. They also report that their small right upper no nodules as well. Trace pericardial effusion as well as some lymphadenopathy. Also per the advice of hematology oncology regarding a repeat image the patient about this time with IV and by mouth contrast the chest abdomen and pelvis. Also called the patient's primary care physician just to notify him that she is currently here and that we are seeing her. thank you Bryson Schwab
[2017-06-13] MEDS: Pantoprazole 40 mg EC Tab PO SCH (09:02)
[2017-06-13 11:43] LABS: BASO % 0.2 % (0.0-2.0); EOS % 0.6 % (0.0-4.0); HEMOGLOBIN 13.2 g/dL (11.0-16.0); LYMPH # 1.7 K/uL (1.0-4.3); LYMPH % 25.1 % (20.0-40.0); MEAN CELL VOLUME 93.3 fL (81.0-99.0); MEAN CORPUSCULAR HEMOGLOBIN 31.5 pg (27.0-31.0); MEAN CORPUSCULAR HGB CONC 33.8 g/dL (33.0-37.0); MEAN PLATELET VOLUME 7.4 fL (7.2-11.7); MONO # 0.5 K/uL (0.0-0.8); MONO % 7.3 % (0.0-10.0); NEUT # 4.5 K/uL (1.8-7.0); NEUT % 66.8 % (50.0-75.0); NRBC % 0.1 % (0.0-2.0); RBC 4.2 Mil/uL (3.80-5.20); RED CELL DISTRIBUTION WIDTH 12.8 % (11.5-14.5); WHITE BLOOD COUNT 6.7 K/uL (4.8-10.8)
[2017-06-13 12:02] LABS: ALB/GLOB RATIO 1.2 (1.0-2.1); ALBUMIN 3.6 g/dL (3.5-5.0); ALT/SGPT 19 U/L (9-52); AST/SGOT 17 U/L (14-36); BLOOD UREA NITROGEN 11 mg/dL (7-17); CALCIUM 8.7 mg/dl (8.6-10.4); GFR AFRICAN-AMERICAN > 60; GFR NON-AFRICAN AMERICAN > 60; HDL CHOLESTEROL 44 mg/dL (30-70)
[2017-06-13 12:06] LABS: LDL CHOLESTEROL 81 mg/dL (0-129)
[2017-06-13] MEDS ORDERED: Ferric Sodium Gluconat Complex 62.5 mg/5 ml Vial IVPB SCH (12:30)
[2017-06-13] MEDS ORDERED: Iohexol 240 (50 ml) PO ONE (13:00)
[2017-06-13] MEDS: Ferric Sodium Gluconat Complex 125 MG in Sodium Chloride 0.9% 100 ML IVPB SCH (13:34)
[2017-06-13] MEDS ORDERED: Ferric Sodium Gluconat Complex 62.5 mg/5 ml Vial ONE (13:36)
--- NOTE | 2017-06-13 13:39 | CP.PCM.CON ---
History of Present Illness - History of Present Illness History of Present Illness: Reason for consultation: shortness of breath, cough and weight loss patient is 67-year-old female with long history of smoking who presented to emergency room visit 2 week history of cough, shortness of breath, dizziness, weakness and fatigue. Patient states that she lost 80 pounds in 3 months. Patient was also treated for pneumonia 2 months ago. Patient states that the cough is producti of whitish sputum. Denies fever or chills, denies chest pain. PMHx: HTN, HLD, Nephrolithiasis PSHx: Denies Allergies: NKA Home Medications (verified w/ Dr Kim's office): chantix, crestor 20mg po hs, cyproheptadine 4mg po qd, lisinopril 10mg po qd FamHx: Denies SocialHx: 40 pack year tobacco history, currently smokes 1/2 ppd; denies alcohol or illicit drugs; lives alone in [facility]; works in a [employer]; has 1 daughter in [place] and 1 son in [place] Review of Systems - Review of Systems All systems: reviewed and no additional remarkable complaints except (shortness of breath, cough and weight loss) Past Patient History - Past Medical History & Family History Past Medical History?: Yes - Past Social History Smoking Status: Heavy Smoker > 10 Cigarettes Daily - CARDIAC Hx Hypercholesterolemia: Yes - PULMONARY Hx Chronic Obstructive Pulmonary Disease (COPD): Yes (?) - RENAL Hx Kidney Stones: Yes - MUSCULOSKELETAL/RHEUMATOLOGICAL Hx Falls: No - PSYCHIATRIC Hx Substance Use: No - SURGICAL HISTORY Hx Surgeries: No - ANESTHESIA Hx Anesthesia: No Hx Anesthesia Reactions: No Meds Allergies/Adverse Reactions: Allergies Allergy/AdvReac Type Severity Reaction Status Date / Time No Known Allergies Allergy Verified 06/12/17 08:26 - Medications Medications: Current Medications Albuterol/Ipratropium (Duoneb 3 Mg/0.5 Mg (3 Ml) Ud) 3 ml INH RQ6 PRN PRN Reason: Shortness of Breath Heparin Sodium (Porcine) (Heparin) 5,000 units SC Q8 [facility] Last Admin: 06/13/17 06:02 Dose: Not Given Ferric Sodium Gluconate Complex 125 mg/ Sodium Chloride 110 mls @ 110 mls/hr IVPB DAILY [facility] Stop: 06/21/17 13:31 Lisinopril (Zestril) 10 mg PO QAM [facility] Last Admin: 06/13/17 09:02 Dose: 10 mg Megestrol Acetate (Megace) 40 mg PO DAILY [facility] Moxifloxacin HCl (Avelox) 400 mg PO DAILY [facility] Last Admin: 06/13/17 09:02 Dose: 400 mg Nicotine (Nicoderm Cq) 1 patch TD DAILY [facility] Last Admin: 06/13/17 09:09 Dose: 1 patch Pantoprazole Sodium (Protonix Ec Tab) 40 mg PO DAILY [facility] Last Admin: 06/13/17 09:02 Dose: 40 mg Rosuvastatin Calcium (Crestor) 20 mg PO HS [facility] Last Admin: 06/12/17 21:27 Dose: 20 mg Physical Exam - Head Exam Head Exam: ATRAUMATIC, NORMOCEPHALIC - ENT Exam ENT Exam: Mucous Membranes Dry - Neck Exam Neck exam: Positive for: Normal Inspection - Respiratory Exam Respiratory Exam: Decreased Breath Sounds - Cardiovascular Exam Cardiovascular Exam: REGULAR RHYTHM - GI/Abdominal Exam GI & Abdominal Exam: Normal Bowel Sounds, Soft - Extremities Exam Extremities exam: Positive for: normal inspection - Neurological Exam Neurological exam: Alert, Oriented x3 Results - Vital Signs Recent Vital Signs: Last Vital Signs Temp 98.5 F 06/13/17 07:22 Pulse 88 06/13/17 07:22 Resp 20 06/13/17 07:22 BP 124/79 06/13/17 07:22 Pulse Ox 93 L 06/13/17 07:22 - Labs Result Diagrams: 06/13/17 11:25 06/13/17 11:25 Labs: Laboratory Results - last 24 hr 06/12/17 06/12/17 06/12/17 14:48 17:10 17:10 WBC RBC Hgb Hct MCV MCH MCHC RDW Plt Count MPV Neut % (Auto) Lymph % (Auto) [place]er % (Auto) Eos % (Auto) Baso % (Auto) Neut # Lymph # Hettinger # Eos # Baso # Sodium Potassium Chloride Carbon Dioxide Anion Gap BUN Creatinine Est GFR ( Amer) Est GFR (Non-Af Amer) Random Glucose Hemoglobin A1c 5.7 Calcium Iron TIBC % Saturation Ferritin Total Bilirubin AST ALT Alkaline Phosphatase Total Protein Albumin Globulin Albumin/Globulin Ratio Triglycerides Cholesterol LDL Cholesterol Direct HDL Cholesterol Vitamin B12 Folate Procalcitonin Hepatitis A IgM Ab Negative Hep Bs Antigen Negative Hep B Core IgM Ab Negative Hepatitis C Antibody Negative HIV 1&2 Antibody Screen Ur L.pneumophila Ag Negative 06/12/17 06/12/17 06/12/17 17:10 17:10 17:10 WBC RBC Hgb Hct MCV MCH MCHC RDW Plt Count MPV Neut % (Auto) Lymph % (Auto) Het[place]er % (Auto) Eos % (Auto) Baso % (Auto) Neut # Lymph # Hettinger # Eos # Baso # Sodium Potassium Chloride Carbon Dioxide Anion Gap BUN Creatinine Est GFR ( Amer) Est GFR (Non-Af Amer) Random Glucose Hemoglobin A1c Calcium Iron 17 L TIBC 200 L % Saturation 9 L Ferritin 363.0 Total Bilirubin AST ALT Alkaline Phosphatase Total Protein Albumin Globulin Albumin/Globulin Ratio Triglycerides Cholesterol LDL Cholesterol Direct HDL Cholesterol Vitamin B12 703 Folate 14.4 Procalcitonin Hepatitis A IgM Ab Hep Bs Antigen Hep B Core IgM Ab Hepatitis C Antibody HIV 1&2 Antibody Screen Negative Ur L.pneumophila Ag 06/12/17 06/13/17 06/13/17 17:10 11:25 11:25 WBC 6.7 RBC 4.20 Hgb 13.2 Hct 39.2 MCV 93.3 MCH 31.5 H MCHC 33.8 RDW 12.8 Plt Count 233 MPV 7.4 Neut % (Auto) 66.8 Lymph % (Auto) 25.1 Hettinger % (Auto) 7.3 Eos % (Auto) 0.6 Baso % (Auto) 0.2 Neut # 4.5 Lymph # 1.7 Hettinger # 0.5 Eos # 0.0 Baso # 0.0 Sodium 134 Potassium 3.7 Chloride 94 L Carbon Dioxide 36 H Anion Gap 8 L BUN 11 Creatinine 0.3 L Est GFR ( Amer) > 60 Est GFR (Non-Af Amer) > 60 Random Glucose 105 Hemoglobin A1c Calcium 8.7 Iron TIBC % Saturation Ferritin Total Bilirubin 0.4 AST 17 ALT 19 Alkaline Phosphatase 40 Total Protein 6.7 Albumin 3.6 Globulin 3.0 Albumin/Globulin Ratio 1.2 Triglycerides 70 Cholesterol 147 LDL Cholesterol Direct 81 HDL Cholesterol 44 Vitamin B12 Folate Procalcitonin < 0.05 L Hepatitis A IgM Ab Hep Bs Antigen Hep B Core IgM Ab Hepatitis C Antibody HIV 1&2 Antibody Screen Ur L.pneumophila Ag Assessment & Plan (1) COPD exacerbation Status: Acute Comment: patient with long history of smoking. IV steroids. Nebulizer treatment. Continue IV antibiotics. LABA/LAMA. aNTITUSSIVE (2) LLL pneumonia Status: Acute Comment: CAT scan of the chest consistent wi left lower lung infiltrate. Malignancy cannot be ruled out. Continue antibiotics. Follow-up culture and sensitivity. PET scan
[2017-06-13] MEDS: Promethazine DM 6.25 mg-15 mg/5 ml Syrup PO SCH ×2 (14:16→20:00)
[2017-06-13] MEDS ORDERED: Iodixanol 320 MG/ML 100 ML BOTTLE IV ONE (16:23)
[2017-06-13] MEDS: MethylPREDNISolone 40 mg Vial IV SCH (17:34)
--- NOTE | 2017-06-13 18:35 | CT ---
PROCEDURE: CT Chest, Abdomen and Pelvis with intravenous contrast HISTORY: suspicion of malignancy COMPARISON: June 12, 2017. CT chest abdomen and pelvis 12/14/2016 CT thorax TECHNIQUE: IV dose administered: 100 cc Visipaque 320 Radiation dose: Total exam DLP = 303.31 mGy-cm. This CT exam was performed using one or more of the following dose reduction techniques: Automated exposure control, adjustment of the mA and/or kV according to patient size, and/or use of iterative reconstruction technique. FINDINGS: CT CHEST WITH CONTRAST: LUNGS: Stable left lower lobe infiltrate, new right lower lobe infiltrate. The overall appearance distribution suggests possibility of aspiration pneumonia. MEDIASTINUM: Unremarkable. Normal caliber aorta and pulmonary arterial trunk. No aortic dissection. Normal size heart. LYMPH NODES: Unremarkable. PLEURA: Unremarkable. No pneumothorax. No pleural fluid. BONES: Unremarkable. OTHER FINDINGS: None. CT ABDOMEN AND PELVIS: LIVER: Hepatic steatosis. No focal masses. No intrahepatic bile duct dilatation or perihepatic ascites. 2.2 cm cyst near the dome of the liver. GALLBLADDER AND BILE DUCTS: Unremarkable. PANCREAS: Unremarkable. No gross lesion or ductal dilatation. SPLEEN: Unremarkable. ADRENALS: Unremarkable. No mass. KIDNEYS AND URETERS: Stable left renal calculus disease. Including renal pelvic calculus measuring 1.3 x 2.1 cm. Additional smaller lower pole calculi the largest 8.5 mm. Distention of the left collecting system unchanged. Innumerable tiny right renal cysts. VASCULATURE: Unremarkable. No aortic aneurysm. BOWEL: Unremarkable. No obstruction. No gross mural thickening. Constipation without fecal impaction or obstruction. APPENDIX: Normal appendix. PERITONEUM: Unremarkable. No free fluid. No free air. LYMPH NODES: No suspicious lymphadenopathy. BLADDER: Unremarkable. REPRODUCTIVE: Unremarkable. BONES: No acute fracture. OTHER FINDINGS: Incidental finding(s): Prominent saphenous veins without evidence of deep vein thrombosis. IMPRESSION: Stable left lower lobe infiltrate, new basilar segment infiltrate right lower lobe. Findings are likely infectious/ inflammatory perhaps aspiration pneumonia based on distribution and location. Otherwise no significant interval change. This includes simple hepatic cysts, right renal cyst, staghorn calculus in the left renal collecting system and additional calculi in the lower pole collecting system.
[2017-06-14] MEDS: MethylPREDNISolone 40 mg Vial IV SCH ×4 (00:43→18:30)
[2017-06-14] MEDS: Promethazine DM 6.25 mg-15 mg/5 ml Syrup PO SCH ×4 (02:09→21:27)
--- NOTE | 2017-06-14 07:19 | CP.PCM.PN ---
<Vitaly Louis - Last Filed: 06/14/17 11:49> Subjective - Date & Time of Evaluation Date of Evaluation: 06/14/17 Time of Evaluation: 07:17 - Subjective Subjective: PGY-[address] Schwab. Per overnight resident, last night the patient was confused and couldn't recall where she was, AAOx1. She was also walking around the room and bumping into the red. Today the patient stated she feels weak. She ate 100% of her breakfast. She denied chest pain, abdominal pain, shortness of breath, focal deficits, fever, nausea, vomiting. Objective - Vital Signs/Intake and Output Vital Signs (last 24 hours): Temp Pulse Resp BP Pulse Ox 97.3 F L 80 20 114/74 93 L 06/14/17 00:00 06/14/17 00:00 06/14/17 00:00 06/14/17 00:00 06/14/17 00:00 Intake and Output: 06/14/17 06/14/17 06:59 18:59 Intake Total 440 Output Total 300 Balance 140 - Medications Medications: Current Medications Albuterol/Ipratropium (Duoneb 3 Mg/0.5 Mg (3 Ml) Ud) 3 ml INH RQ6 PRN PRN Reason: Shortness of Breath Heparin Sodium (Porcine) (Heparin) 5,000 units SC Q8 [facility] Last Admin: 06/14/17 06:30 Dose: 5,000 units Ferric Sodium Gluconate Complex 125 mg/ Sodium Chloride 110 mls @ 110 mls/hr IVPB DAILY [facility] Stop: 06/21/17 13:31 Last Admin: 06/13/17 13:34 Dose: 110 mls/hr Dextrose (Dextrose 5% In Water 1000 Ml) 1,000 mls @ 60 mls/hr IV .[id number] [facility] Stop: 06/14/17 14:01 Last Admin: 06/14/17 06:40 Dose: Not Given Lisinopril (Zestril) 10 mg PO QAM [facility] Last Admin: 06/13/17 09:02 Dose: 10 mg Megestrol Acetate (Megace) 40 mg PO DAILY [facility] Last Admin: 06/13/17 14:16 Dose: 40 mg Methylprednisolone (Solu-Medrol) 40 mg IV Q6 [facility] Last Admin: 06/14/17 06:30 Dose: 40 mg Moxifloxacin HCl (Avelox) 400 mg PO DAILY [facility] Last Admin: 06/13/17 09:02 Dose: 400 mg Nicotine (Nicoderm Cq) 1 patch TD DAILY [facility] Last Admin: 06/13/17 09:09 Dose: 1 patch Pantoprazole Sodium (Protonix Ec Tab) 40 mg PO DAILY [facility] Last Admin: 06/13/17 09:02 Dose: 40 mg Promethazine HCl/Dextromethorphan (Phenergan Dm Syrup) 5 ml PO Q6H [facility] Stop: 06/15/17 14:01 Last Admin: 06/14/17 02:09 Dose: 5 ml Rosuvastatin Calcium (Crestor) 20 mg PO HS [facility] Last Admin: 06/13/17 21:45 Dose: 20 mg Tiotropium [place] (Spiriva) 18 mcg INH RQ24 [facility] Tiotropium [place] (Spiriva Inhalation Handihaler Device) 1 inhaler INH ONCE ONE Stop: 06/14/17 08:01 - Labs Labs: 06/13/17 11:25 06/13/17 11:25 PT 13.4 SECONDS (9.7-12.2) H 06/12/17 09:22 INR 1.2 06/12/17 09:22 APTT 30 SECONDS (21-34) 06/12/17 09:22 - Additional Findings Additional findings: - Constitutional Appears: No Acute Distress, Cachectic - Head Exam Head Exam: ATRAUMATIC, NORMAL INSPECTION - Eye Exam Eye Exam: EOMI Pupil Exam: PERRL - ENT Exam ENT Exam: Mucous Membranes Moist - Neck Exam Neck exam: Positive for: Full Rom, Normal Inspection - Respiratory Exam Respiratory Exam: Decreased Breath Sounds, Rhonchi Additional comments: Bibasilar rhonchi and decreased breath sounds throughout - Cardiovascular Exam Cardiovascular Exam: REGULAR RHYTHM. absent: Bradycardia, Tachycardia, JVD, Systolic Murmur - GI/Abdominal Exam GI & Abdominal Exam: Normal Bowel Sounds, Soft. absent: Distended, Firm, Guarding, Tenderness - Extremities Exam Extremities exam: Positive for: normal capillary refill, normal inspection, pedal pulses present - Back Exam Back exam: CVA tenderness (L), NORMAL INSPECTION - Neurological Exam Neurological exam: Alert, Oriented x3 - Psychiatric Exam Psychiatric exam: Normal Affect, Normal Mood - Skin Skin Exam: Intact, Normal Color, Warm Additional comments: dermatitis stasis in left lower extremity near ankle Assessment and Plan (1) Borderline low O2 saturation Status: Acute (2) Hypertension Status: Acute (3) Hyperlipidemia Status: Acute (4) Smoking greater than 40 pack years Status: Acute (5) Weight loss, unintentional Status: Acute (6) Prophylactic measure Status: Acute - Assessment and Plan (Free Text) Assessment: (1) Borderline low O2 saturation Assessment and Plan: 40 pack year smoking hx; productive cough w/ white sputum for 2 months; recently treated for pneumonia in 03/2017; Atelectasis vs pneumonia; No leukocytosis, afebrile Pulmonology consult, Dr Pineda * Patient will need a PET scan outpatient. Nasal cannula 2L ABG ordered for baseline values F/U mycoplasma, legionella NEGATIVE, strep pneumoniae procalcitonin < 0.05 NEGATIVE Blood culture 06/12 NEGATIVE up to date F/U Urine culture Sputum stain NEGATIVE, Sputum culture 06/13 Pending Imaging: CT chest/abd/pelvis w/ PO and IV contrast 06/13: Stable left lower lobe infiltrate, new right lower lobe infiltrate. The overall appearance distribution suggests possibility of aspiration pneumonia. Findings are likely infectious/inflammatory perhaps aspiration pneumonia based on distribution and location. CT chest/abd/pelvis 06/12: (1) Respiratory motion artifacts limit evaluation of the chest. Left lower lobe atelectasis is identified however underlying pneumonia is not excluded given medial unilateral appearance/distribution of this finding. Underlying lesion not completely excluded either and follow-up chest CT is recommended after therapy. (2) Likely stable tiny right upper lobe nodules identified. Clinically correlate with risk factors for developing lung cancer. Appears fractures are present along cast on follow-up chest CT is advised in 1 year. Meds: Duonebs INH Q6h PRN Moxifloxacin 400mg IVPB QD started 06/12 Solumedrol 40mg IV Q6H Spiriva 18 mcg INH QD Status: Acute (2) Hypertension Assessment and Plan: Con't home med lisinopril 10mg PO QD Status: Acute (3) Hyperlipidemia Assessment and Plan: Lipid panel NORMAL Con't home med crestor 20mg PO HS Status: Acute (4) Smoking greater than 40 pack years Assessment and Plan: 40 pack year smoking history; currently smokes 1/2 pack per day Prescribed chantix outpatient but not compliant Nicotine patch TD QD Status: Acute (5) Weight loss, unintentional Assessment and Plan: 90 lb weight loss in 3 months 2/2 decreased appetite; 40 pack year smoking hx; prescribed cyproheptadine outpatient but pt states it did not help her Heme/Onc consult, Dr Page vitamin B12 703, Folate 14.4, Iron 17 (Low), TIBC 200 (Low), %Saturation 9 (Low) , Ferritin 363 HIV panel NEGATIVE, hepatitis panel NEGATIVE F/U CEA, CA 19-9, CA-125, AFP Megestrol 40mg PO QD to stimulate appetite Psychiatry consult, Dr Blanchard - to evaluate for depression, F/U recs Imaging: CT chest/abd/pelvis w/ PO and IV contrast does not show any signs of malignancy Breast ultrasound/mammography 12/2016: Hypoechoic nodule in the 5-6 o'clock axis of the right breast with mild macro lobulation, possibly solid nodule. Low suspicion for malignancy. BIRADS 3. Status: Acute (6) Iron Deficiency w/o anemia; likely 2/2 to poor po intake Ferrlecit 125mg IVPB QD x2 (stopped 06/14) (7) Hepatic Steatosis CT chest/abd/pelvis w/ PO and IV contrast 06/13: Hepatic steatosis. No focal masses. No intrahepatic bile duct dilatation or perihepatic ascites. 2.2 cm cyst near the dome of the liver. (8) Renal Pelvic Calculus CT chest/abd/pelvis w/ PO and IV contrast 06/13: Stable left renal calculus disease. Including renal pelvic calculus measuring 1.3 x 2.1 cm. Additional smaller lower pole calculi the largest 8.5 mm. Distention of the left collecting system unchanged. (9) Prophylactic measure Assessment and Plan: Protonix 40mg PO QD SCDs, Heparin 5000u SC Q8H Heart Healthy Diet Daughter, Carolina, #[phone] Status: Acute Case discussed with attending Dr Schwab. Disposition: Patient will need a PET scan outpatient. <Bryson Schwab - Last Filed: 06/14/17 13:57> Objective - Vital Signs/Intake and Output Vital Signs (last 24 hours): Temp Pulse Resp BP Pulse Ox 97.3 F L 80 20 114/74 93 L 06/14/17 00:00 06/14/17 00:00 06/14/17 00:00 06/14/17 00:00 06/14/17 00:00 Intake and Output: 06/14/17 06/14/17 06:59 18:59 Intake Total 1120 Output Total 300 Balance 820 - Medications Medications: Current Medications Albuterol/Ipratropium (Duoneb 3 Mg/0.5 Mg (3 Ml) Ud) 3 ml INH RQ6 PRN PRN Reason: Shortness of Breath Heparin Sodium (Porcine) (Heparin) 5,000 units SC Q8 [facility] Last Admin: 06/14/17 13:43 Dose: 5,000 units Ferric Sodium Gluconate Complex 125 mg/ Sodium Chloride 110 mls @ 110 mls/hr IVPB DAILY [facility] Stop: 06/21/17 13:31 Last Admin: 06/14/17 09:58 Dose: 110 mls/hr Dextrose (Dextrose 5% In Water 1000 Ml) 1,000 mls @ 60 mls/hr IV .[id number] [facility] Stop: 06/14/17 14:01 Last Admin: 06/14/17 06:40 Dose: Not Given Lisinopril (Zestril) 10 mg PO QAM [facility] Last Admin: 06/14/17 09:59 Dose: 10 mg Megestrol Acetate (Megace) 40 mg PO DAILY [facility] Last Admin: 06/14/17 09:59 Dose: 40 mg Methylprednisolone (Solu-Medrol) 40 mg IV Q6 [facility] Last Admin: 06/14/17 12:18 Dose: 40 mg Moxifloxacin HCl (Avelox) 400 mg PO DAILY [facility] Last Admin: 06/14/17 09:58 Dose: 400 mg Nicotine (Nicoderm Cq) 1 patch TD DAILY [facility] Last Admin: 06/14/17 09:59 Dose: 1 patch Pantoprazole Sodium (Protonix Ec Tab) 40 mg PO DAILY [facility] Last Admin: 06/14/17 09:59 Dose: 40 mg Promethazine HCl/Dextromethorphan (Phenergan Dm Syrup) 5 ml PO Q6H [facility] Stop: 06/15/17 14:01 Last Admin: 06/14/17 08:36 Dose: 5 ml Rosuvastatin Calcium (Crestor) 20 mg PO HS [facility] Last Admin: 06/13/17 21:45 Dose: 20 mg Tiotropium [place] (Spiriva) 18 mcg INH RQ24 [facility] Last Admin: 06/14/17 08:24 Dose: Not Given - Labs Labs: 12/28/17 08:03 06/14/17 08:03 PT 13.4 SECONDS (9.7-12.2) H 06/12/17 09:22 INR 1.2 06/12/17 09:22 APTT 30 SECONDS (21-34) 06/12/17 09:22 Attending/Attestation - Attestation I have personally seen and examined this patient.: Yes I have fully participated in the care of the patient.: Yes I have reviewed all pertinent clinical information, including history, physical exam and plan: Yes Notes (Text): 06/14/17 13:53 Medical attending: Patient was seen and examined by me. Agree with the above note by the resident The patient I was told overnight was very confused. This morning she was not agitated and not in acute distress. She is being seen by psychiatry as well today The new CT scan we ordered of the chest has revealed that there is pneumonia on not just one side but bilaterally. She is being continued with IV abx at this time. Per my discussion with pulmonology today the patient may also have underlying malignancy in the lungs in those areas as well. His suggestion was for PET scan outpatient to be done if we don't find anything here. Appettie remains very poor. There is iron deffcinecy anemia. The patient is getting IV ferrlecit. thank you Bryson Schwab
[2017-06-14 08:14] LABS: BASO % 0.3 % (0.0-2.0); HEMOGLOBIN 14.2 g/dL (11.0-16.0); LYMPH # 0.8 K/uL (1.0-4.3); MEAN CELL VOLUME 93.2 fL (81.0-99.0); MEAN CORPUSCULAR HEMOGLOBIN 31.6 pg (27.0-31.0); MEAN PLATELET VOLUME 7.3 fL (7.2-11.7); MONO # 0.2 K/uL (0.0-0.8); MONO % 2.2 % (0.0-10.0); NEUT % 85.5 % (50.0-75.0); RBC 4.49 Mil/uL (3.80-5.20); RED CELL DISTRIBUTION WIDTH 12.5 % (11.5-14.5)
[2017-06-14] MEDS: Tiotropium 18 mcg Cap For Inhalation INH SCH (08:24)
[2017-06-14 09:08] LABS: ALB/GLOB RATIO 1.2 (1.0-2.1); ALBUMIN 3.9 g/dL (3.5-5.0); ALT/SGPT 20 U/L (9-52); AST/SGOT 16 U/L (14-36); BLOOD UREA NITROGEN 11 mg/dL (7-17); CALCIUM 8.6 mg/dl (8.6-10.4); GFR AFRICAN-AMERICAN > 60; GFR NON-AFRICAN AMERICAN > 60
[2017-06-14] MEDS: Ferric Sodium Gluconat Complex 125 MG in Sodium Chloride 0.9% 100 ML IVPB SCH (09:58)
[2017-06-14] MEDS: Pantoprazole 40 mg EC Tab PO SCH (09:59)
--- NOTE | 2017-06-14 11:51 | PCM.PSYCH ---
Initial Psychiatric Evaluation - Initial Psychiatric Evaluation Chief Complaint (in patient's own words): " I am down" History of Present Illness and Precipitating Events: The patient was seen, the chart was reviewed and the case was discussed. Patient is a 67 year old [place] female with past medical history of HTN, HLD, Nephrolithiasis, who was admitted for hypoxia. Psychiatric consult was placed due to noted decrease PO intake and depressive mood by patient's daughter. During the encounter, patient stated that she feels down because she has no one to talk to at the senior home and all she does is watch TV. Patient also complains of sleep disturbance. 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, single and with two children Patient admits to feeling depressed and decreased appetite but denies suicidal ideation, homicidal ideation and hallucination Patient has a 40 year of tobacco use, currently smokes 1/2 ppd but denies ETOH and illciit drug use Past psych hx: denies Past medical Hx: HTN, HLD, Nephrolithiasis Past psyc hx: denies Current Medications: Active Medications Generic Name Dose Route Start Last Admin Trade Name Freq PRN Reason Stop Dose Admin Albuterol/Ipratropium 3 ml 06/12/17 15:01 Duoneb 3 Mg/0.5 Mg (3 Ml) Ud INH RQ6 PRN Shortness of Breath Heparin Sodium (Porcine) 5,000 units 06/12/17 22:00 06/14/17 06:30 Heparin SC 5,000 units Q8 [facility] Administration Ferric Sodium Gluconate 110 mls @ 110 mls/hr 06/13/17 13:30 06/14/17 09:58 Complex 125 mg/ Sodium IVPB 06/21/17 13:31 110 mls/hr Chloride DAILY [facility] Administration Dextrose 1,000 mls @ 60 mls/hr 06/13/17 14:00 06/14/17 06:40 Dextrose 5% In Water 1000 Ml IV 06/14/17 14:01 Not Given .[id number] [facility] Lisinopril 10 mg 06/13/17 10:00 06/14/17 09:59 Zestril PO 10 mg QAM [facility] Administration Megestrol Acetate 40 mg 06/13/17 13:30 06/14/17 09:59 Megace PO 40 mg DAILY [facility] Administration Methylprednisolone 40 mg 06/13/17 18:00 06/14/17 06:30 Solu-Medrol IV 40 mg Q6 [facility] Administration Moxifloxacin HCl 400 mg 06/12/17 17:45 06/14/17 09:58 Avelox PO 400 mg DAILY [facility] Administration Nicotine 1 patch 06/13/17 10:00 06/14/17 09:59 Nicoderm Cq TD 1 patch DAILY [facility] Administration Pantoprazole Sodium 40 mg 06/13/17 10:00 06/14/17 09:59 Protonix Ec Tab PO 40 mg DAILY [facility] Administration Promethazine HCl/Dextromethorphan 5 ml 06/13/17 14:00 06/14/17 08:36 Phenergan Dm Syrup PO 06/15/17 14:01 5 ml Q6H [facility] Administration Rosuvastatin Calcium 20 mg 06/12/17 22:00 06/13/17 21:45 Crestor PO 20 mg HS [facility] Administration Tiotropium [place] 18 mcg 06/14/17 08:00 06/14/17 08:24 Spiriva INH Not Given RQ24 [facility] Past Psychiatric History - Past Psychiatric History Pertinent Medical Hx (Current Medical&Sleep Prob, Allergies): Allergies Allergy/AdvReac Type Severity Reaction Status Date / Time No Known Allergies Allergy Verified 06/12/17 08:26 Lisinopril [Zestril] 1 tab PO QAM 03/10/17 Rosuvastatin Calcium 1 tab PO QAM 03/10/17 Review of Systems - Neurological Neurological: Confusion - Psychiatric Psychiatric: Abnormal Sleep Pattern, Change in Appetite, Depression. absent: Anxiety, Auditory Hallucinations, Hallucinations, Homicidal Ideation, Hopelessness, Irritability, Suicidal Ideation, Visual Hallucinations, Tactile Hallucinations Mental Status Examination - Personal Presentation Personal Presentation: Looks older than stated age - Affect Affect: Other (Normal) - Motor Activity Motor Activity: Calm - Reliability in Providing Information Reliability in Providing Information: Good - Speech Speech: Organized - Mood Mood: Depressed - Formal Thought Process Formal Thought Process: Other (confused) - Obsessions/Compulsions Obsessions: No Compulsions: No - Cognitive Functions Orientation: Person Sensorium: Alert Attention/Concentration: Attentive Estimate of Intelligence: Below average Judgement: Imparied, as evidence by: Lack of insight into illness - Risk Risk: Diminished functioning - Strength & Assets Inventory Strength & Assets Inventory: Family support DSM 5 DX - DSM 5 DSM 5 Diagnosis: Mild Depression - Recommended/Plan of Treatment Treatment Recommendations and Plan of Treatment: Supportive therapy and psychoeducation Decrease PO Intake: Megace 40mg PO daily Will add medication as needed Will continue to follow hospital course
--- NOTE | 2017-06-14 12:48 | CARD ---
APPROVED REPORT EKG Measurement Heart [id number] <Conclusion> Normal sinus rhythm Low voltage QRS Nonspecific T wave abnormality Abnormal ECG
--- NOTE | 2017-06-14 13:44 | CP.PCM.PN ---
Subjective - Date & Time of Evaluation Date of Evaluation: 06/13/17 Time of Evaluation: 13:00 - Subjective Subjective: No complaints. Objective - Vital Signs/Intake and Output Vital Signs (last 24 hours): Temp Pulse Resp BP Pulse Ox 97.3 F L 80 20 114/74 93 L 06/14/17 00:00 06/14/17 00:00 06/14/17 00:00 06/14/17 00:00 06/14/17 00:00 Intake and Output: 06/14/17 06/14/17 06:59 18:59 Intake Total 1120 Output Total 300 Balance 820 - Medications Medications: Current Medications Albuterol/Ipratropium (Duoneb 3 Mg/0.5 Mg (3 Ml) Ud) 3 ml INH RQ6 PRN PRN Reason: Shortness of Breath Heparin Sodium (Porcine) (Heparin) 5,000 units SC Q8 [facility] Last Admin: 06/14/17 06:30 Dose: 5,000 units Ferric Sodium Gluconate Complex 125 mg/ Sodium Chloride 110 mls @ 110 mls/hr IVPB DAILY [facility] Stop: 06/21/17 13:31 Last Admin: 06/14/17 09:58 Dose: 110 mls/hr Dextrose (Dextrose 5% In Water 1000 Ml) 1,000 mls @ 60 mls/hr IV .[id number] [facility] Stop: 06/14/17 14:01 Last Admin: 06/14/17 06:40 Dose: Not Given Lisinopril (Zestril) 10 mg PO QAM [facility] Last Admin: 06/14/17 09:59 Dose: 10 mg Megestrol Acetate (Megace) 40 mg PO DAILY [facility] Last Admin: 06/14/17 09:59 Dose: 40 mg Methylprednisolone (Solu-Medrol) 40 mg IV Q6 [facility] Last Admin: 06/14/17 12:18 Dose: 40 mg Moxifloxacin HCl (Avelox) 400 mg PO DAILY [facility] Last Admin: 06/14/17 09:58 Dose: 400 mg Nicotine (Nicoderm Cq) 1 patch TD DAILY [facility] Last Admin: 06/14/17 09:59 Dose: 1 patch Pantoprazole Sodium (Protonix Ec Tab) 40 mg PO DAILY [facility] Last Admin: 06/14/17 09:59 Dose: 40 mg Promethazine HCl/Dextromethorphan (Phenergan Dm Syrup) 5 ml PO Q6H [facility] Stop: 06/15/17 14:01 Last Admin: 06/14/17 08:36 Dose: 5 ml Rosuvastatin Calcium (Crestor) 20 mg PO HS [facility] Last Admin: 06/13/17 21:45 Dose: 20 mg Tiotropium [place] (Spiriva) 18 mcg INH RQ24 [facility] Last Admin: 06/14/17 08:24 Dose: Not Given - Labs Labs: 06/14/17 08:03 06/14/17 08:03 PT 13.4 SECONDS (9.7-12.2) H 06/12/17 09:22 INR 1.2 06/12/17 09:22 APTT 30 SECONDS (21-34) 06/12/17 09:22 - Head Exam Head Exam: ATRAUMATIC - Eye Exam Eye Exam: Normal appearance - ENT Exam ENT Exam: Mucous Membranes Dry - Respiratory Exam Respiratory Exam: NORMAL BREATHING PATTERN - Cardiovascular Exam Cardiovascular Exam: +S1, +S2 - GI/Abdominal Exam GI & Abdominal Exam: Normal Bowel Sounds Assessment and Plan (1) Unintended weight loss Assessment & Plan: LLL infiltrate noted ? infection ? inflammatory ? malignancy Status: Acute
--- NOTE | 2017-06-14 13:46 | CP.PCM.PN ---
Subjective - Date & Time of Evaluation Date of Evaluation: 06/14/17 Time of Evaluation: 13:15 - Subjective Subjective: No complaints, daughter reports she has periods of confusion Objective - Vital Signs/Intake and Output Vital Signs (last 24 hours): Temp Pulse Resp BP Pulse Ox 97.3 F L 80 20 114/74 93 L 06/14/17 00:00 06/14/17 00:00 06/14/17 00:00 06/14/17 00:00 06/14/17 00:00 Intake and Output: 06/14/17 06/14/17 06:59 18:59 Intake Total 1120 Output Total 300 Balance 820 - Medications Medications: Current Medications Albuterol/Ipratropium (Duoneb 3 Mg/0.5 Mg (3 Ml) Ud) 3 ml INH RQ6 PRN PRN Reason: Shortness of Breath Heparin Sodium (Porcine) (Heparin) 5,000 units SC Q8 [facility] Last Admin: 06/14/17 13:43 Dose: 5,000 units Ferric Sodium Gluconate Complex 125 mg/ Sodium Chloride 110 mls @ 110 mls/hr IVPB DAILY [facility] Stop: 06/21/17 13:31 Last Admin: 06/14/17 09:58 Dose: 110 mls/hr Dextrose (Dextrose 5% In Water 1000 Ml) 1,000 mls @ 60 mls/hr IV .[id number] [facility] Stop: 06/14/17 14:01 Last Admin: 06/14/17 06:40 Dose: Not Given Lisinopril (Zestril) 10 mg PO QAM [facility] Last Admin: 06/14/17 09:59 Dose: 10 mg Megestrol Acetate (Megace) 40 mg PO DAILY [facility] Last Admin: 06/14/17 09:59 Dose: 40 mg Methylprednisolone (Solu-Medrol) 40 mg IV Q6 [facility] Last Admin: 06/14/17 12:18 Dose: 40 mg Moxifloxacin HCl (Avelox) 400 mg PO DAILY [facility] Last Admin: 06/14/17 09:58 Dose: 400 mg Nicotine (Nicoderm Cq) 1 patch TD DAILY [facility] Last Admin: 06/14/17 09:59 Dose: 1 patch Pantoprazole Sodium (Protonix Ec Tab) 40 mg PO DAILY [facility] Last Admin: 06/14/17 09:59 Dose: 40 mg Promethazine HCl/Dextromethorphan (Phenergan Dm Syrup) 5 ml PO Q6H [facility] Stop: 06/15/17 14:01 Last Admin: 06/14/17 08:36 Dose: 5 ml Rosuvastatin Calcium (Crestor) 20 mg PO HS [facility] Last Admin: 06/13/17 21:45 Dose: 20 mg Tiotropium [place] (Spiriva) 18 mcg INH RQ24 [facility] Last Admin: 06/14/17 08:24 Dose: Not Given - Labs Labs: 06/14/17 08:03 06/14/17 08:03 PT 13.4 SECONDS (9.7-12.2) H 06/12/17 09:22 INR 1.2 06/12/17 09:22 APTT 30 SECONDS (21-34) 06/12/17 09:22 - Head Exam Head Exam: ATRAUMATIC - Eye Exam Eye Exam: Normal appearance - ENT Exam ENT Exam: Mucous Membranes Dry - Respiratory Exam Respiratory Exam: NORMAL BREATHING PATTERN - Cardiovascular Exam Cardiovascular Exam: +S1, +S2 - GI/Abdominal Exam GI & Abdominal Exam: Normal Bowel Sounds Assessment and Plan (1) Unintended weight loss Assessment & Plan: LLL infiltrate ? infectious, ? inflammatory ? malignancy outpatient PET CT scan after completion of antibiotics Status: Acute
--- NOTE | 2017-06-14 14:23 | CP.PCM.PN ---
Subjective - Date & Time of Evaluation Date of Evaluation: 06/14/17 Time of Evaluation: 07:30 - Subjective Subjective: The cough and shortness of breath improving Afebrile No chest pain Being treated for pneumonia Objective - Vital Signs/Intake and Output Vital Signs (last 24 hours): Temp Pulse Resp BP Pulse Ox 97.3 F L 80 20 114/74 93 L 06/14/17 00:00 06/14/17 00:00 06/14/17 00:00 06/14/17 00:00 06/14/17 00:00 Intake and Output: 06/14/17 06/14/17 06:59 18:59 Intake Total 1120 Output Total 300 Balance 820 - Medications Medications: Current Medications Albuterol/Ipratropium (Duoneb 3 Mg/0.5 Mg (3 Ml) Ud) 3 ml INH RQ6 PRN PRN Reason: Shortness of Breath Heparin Sodium (Porcine) (Heparin) 5,000 units SC Q8 [facility] Last Admin: 06/14/17 13:43 Dose: 5,000 units Ferric Sodium Gluconate Complex 125 mg/ Sodium Chloride 110 mls @ 110 mls/hr IVPB DAILY [facility] Stop: 06/21/17 13:31 Last Admin: 06/14/17 09:58 Dose: 110 mls/hr Dextrose (Dextrose 5% In Water 1000 Ml) 1,000 mls @ 60 mls/hr IV .[id number] [facility] Stop: 06/14/17 14:01 Last Admin: 06/14/17 06:40 Dose: Not Given Lisinopril (Zestril) 10 mg PO QAM [facility] Last Admin: 06/14/17 09:59 Dose: 10 mg Megestrol Acetate (Megace) 40 mg PO DAILY [facility] Last Admin: 06/14/17 09:59 Dose: 40 mg Methylprednisolone (Solu-Medrol) 40 mg IV Q6 [facility] Last Admin: 06/14/17 12:18 Dose: 40 mg Moxifloxacin HCl (Avelox) 400 mg PO DAILY [facility] Last Admin: 06/14/17 09:58 Dose: 400 mg Nicotine (Nicoderm Cq) 1 patch TD DAILY [facility] Last Admin: 06/14/17 09:59 Dose: 1 patch Pantoprazole Sodium (Protonix Ec Tab) 40 mg PO DAILY [facility] Last Admin: 06/14/17 09:59 Dose: 40 mg Promethazine HCl/Dextromethorphan (Phenergan Dm Syrup) 5 ml PO Q6H [facility] Stop: 06/15/17 14:01 Last Admin: 06/14/17 08:36 Dose: 5 ml Rosuvastatin Calcium (Crestor) 20 mg PO HS [facility] Last Admin: 06/13/17 21:45 Dose: 20 mg Tiotropium [place] (Spiriva) 18 mcg INH RQ24 [facility] Last Admin: 06/14/17 08:24 Dose: Not Given - Labs Labs: 06/14/17 08:03 06/14/17 08:03 PT 13.4 SECONDS (9.7-12.2) H 06/12/17 09:22 INR 1.2 06/12/17 09:22 APTT 30 SECONDS (21-34) 06/12/17 09:22 - Head Exam Head Exam: ATRAUMATIC, NORMOCEPHALIC - Eye Exam Eye Exam: Normal appearance - ENT Exam ENT Exam: Mucous Membranes Moist - Neck Exam Neck Exam: Normal Inspection - Respiratory Exam Respiratory Exam: Clear to Ausculation Bilateral - Cardiovascular Exam Cardiovascular Exam: REGULAR RHYTHM - GI/Abdominal Exam GI & Abdominal Exam: Soft, Normal Bowel Sounds Assessment and Plan (1) COPD exacerbation Assessment & Plan: continue nebulizer treatment, IV steroids Status: Acute (2) LLL pneumonia Assessment & Plan: IV antibiotics Repeat chest x-ray after few days Status: Acute
--- NOTE | 2017-06-14 14:25 | CT ---
PROCEDURE: CT HEAD WITHOUT CONTRAST. HISTORY: pt w/ confusion; AAOx1 COMPARISON: None available. TECHNIQUE: Axial computed tomography images were obtained through the head/brain without intravenous contrast. Radiation dose: Total exam DLP = 987.01 mGy-cm. This CT exam was performed using one or more of the following dose reduction techniques: Automated exposure control, adjustment of the mA and/or kV according to patient size, and/or use of iterative reconstruction technique. FINDINGS: HEMORRHAGE: No intracranial hemorrhage. BRAIN: Good corticomedullary differentiation is seen. Diffuse expansion of the ventriculosulcal and cisternal spaces is appreciated with white matter lucency compatible with diffuse cerebral atrophy and chronic microangiopathy. No suspicious extra-axial fluid collection is identified and the midline brain anatomy appears grossly nonfocal as imaged. There is no mass effect throughout. VENTRICLES: Unremarkable. No hydrocephalus. CALVARIUM: Unremarkable. PARANASAL SINUSES: A small osteoma is felt to present in anterior left ethmoid air cell. MASTOID AIR CELLS: Unremarkable as visualized. No inflammatory changes. OTHER FINDINGS: None. IMPRESSION: Age related neuro degenerative changes are identified without acute intracranial findings as discussed above. Follow up CT or MRI are available if clinically warranted.
[2017-06-15] MEDS: Promethazine DM 6.25 mg-15 mg/5 ml Syrup PO SCH ×3 (03:21→13:05)
[2017-06-15] MEDS: MethylPREDNISolone 40 mg Vial IV SCH ×4 (03:41→17:51)
[2017-06-15 07:58] LABS: BASO # 0.1 K/uL (0.0-0.2); BASO % 0.4 % (0.0-2.0); HEMOGLOBIN 13.7 g/dL (11.0-16.0); LYMPH # 1.3 K/uL (1.0-4.3); LYMPH % 9.5 % (20.0-40.0); MEAN CELL VOLUME 94.3 fL (81.0-99.0); MEAN CORPUSCULAR HEMOGLOBIN 31.7 pg (27.0-31.0); MEAN CORPUSCULAR HGB CONC 33.6 g/dL (33.0-37.0); MEAN PLATELET VOLUME 7.5 fL (7.2-11.7); MONO # 0.9 K/uL (0.0-0.8); MONO % 6.3 % (0.0-10.0); NEUT # 11.7 K/uL (1.8-7.0); NEUT % 83.8 % (50.0-75.0); NRBC % 0.1 % (0.0-2.0); PLATELET COUNT 343 K/uL (130-400); RBC 4.34 Mil/uL (3.80-5.20); RED CELL DISTRIBUTION WIDTH 12.9 % (11.5-14.5)
[2017-06-15 08:01] LABS: ALB/GLOB RATIO 1.1 (1.0-2.1); ALBUMIN 3.7 g/dL (3.5-5.0); ALT/SGPT 24 U/L (9-52); AST/SGOT 21 U/L (14-36); BLOOD UREA NITROGEN 26 mg/dL (7-17); CALCIUM 9.4 mg/dl (8.6-10.4); GFR AFRICAN-AMERICAN > 60; GFR NON-AFRICAN AMERICAN > 60
[2017-06-15] MEDS: Tiotropium 18 mcg Cap For Inhalation INH SCH (08:23)
[2017-06-15] MEDS: Albuterol-Ipratrop 3 mg / 0.5 (3 ml) UD INH PRN ×2 (08:42→13:13)
--- NOTE | 2017-06-15 09:14 | CP.PCM.PN ---
<Eleazar Travis - Last Filed: 06/15/17 12:48> Subjective - Date & Time of Evaluation Date of Evaluation: 06/15/17 Time of Evaluation: 07:00 - Subjective Subjective: Medicine progress note for Dr. Schwab Patient seen and examined at bedside. Patient complaining of ongoing cough. Patient was unable to finish her breakfast this morning. No other acute complaints aside from cough and congestion. Objective - Vital Signs/Intake and Output Vital Signs (last 24 hours): Temp Pulse Resp BP Pulse Ox 98.5 F 91 H 20 135/81 96 06/15/17 07:27 06/15/17 07:27 06/15/17 07:27 06/15/17 07:27 06/15/17 07:27 Intake and Output: 06/15/17 06/15/17 06:59 18:59 Intake Total 200 Balance 200 - Medications Medications: Current Medications Albuterol/Ipratropium (Duoneb 3 Mg/0.5 Mg (3 Ml) Ud) 3 ml INH RQ6 PRN PRN Reason: Shortness of Breath Last Admin: 06/15/17 08:42 Dose: 3 ml Heparin Sodium (Porcine) (Heparin) 5,000 units SC Q8 [facility] Last Admin: 06/15/17 05:11 Dose: 5,000 units Ferric Sodium Gluconate Complex 125 mg/ Sodium Chloride 110 mls @ 110 mls/hr IVPB DAILY [facility] Stop: 06/21/17 13:31 Last Admin: 06/14/17 09:58 Dose: 110 mls/hr Lisinopril (Zestril) 10 mg PO QAM [facility] Last Admin: 06/14/17 09:59 Dose: 10 mg Megestrol Acetate (Megace) 40 mg PO DAILY [facility] Last Admin: 06/14/17 09:59 Dose: 40 mg Methylprednisolone (Solu-Medrol) 40 mg IV Q6 [facility] Last Admin: 06/15/17 05:41 Dose: 40 mg Moxifloxacin HCl (Avelox) 400 mg PO DAILY [facility] Last Admin: 06/14/17 09:58 Dose: 400 mg Nicotine (Nicoderm Cq) 1 patch TD DAILY [facility] Last Admin: 06/14/17 09:59 Dose: 1 patch Pantoprazole Sodium (Protonix Ec Tab) 40 mg PO DAILY [facility] Last Admin: 12/28/17 09:59 Dose: 40 mg Promethazine HCl/Dextromethorphan (Phenergan Dm Syrup) 5 ml PO Q6H [facility] Stop: 06/15/17 14:01 Last Admin: 06/15/17 08:20 Dose: 5 ml Rosuvastatin Calcium (Crestor) 20 mg PO HS [facility] Last Admin: 06/14/17 21:27 Dose: 20 mg Tiotropium [place] (Spiriva) 18 mcg INH RQ24 [facility] Last Admin: 06/15/17 08:23 Dose: Not Given - Labs Labs: 06/15/17 07:14 06/15/17 07:14 PT 13.4 SECONDS (9.7-12.2) H 06/12/17 09:22 INR 1.2 06/12/17 09:22 APTT 30 SECONDS (21-34) 06/12/17 09:22 - Constitutional Appears: No Acute Distress, Chronically Ill - Head Exam Head Exam: ATRAUMATIC, NORMOCEPHALIC - Eye Exam Eye Exam: EOMI, Normal appearance - ENT Exam ENT Exam: Mucous Membranes Moist - Respiratory Exam Respiratory Exam: Decreased Breath Sounds. absent: Rales, Rhonchi, Wheezes - Cardiovascular Exam Cardiovascular Exam: REGULAR RHYTHM, +S1, +S2 - GI/Abdominal Exam GI & Abdominal Exam: Soft, Normal Bowel Sounds. absent: Distended, Tenderness - Extremities Exam Extremities Exam: absent: Pedal Edema, Tenderness - Neurological Exam Neurological Exam: Alert, Awake Additional comments: Patient oriented to person and time, but she will at times state that she has to go to work right now. - Psychiatric Exam Psychiatric exam: Normal Affect, Normal Mood - Skin Skin Exam: Dry, Warm Assessment and Plan - Assessment and Plan (Free Text) Plan: (1) Borderline low O2 saturation Assessment and Plan: 40 pack year smoking hx; productive cough w/ white sputum for 2 months; recently treated for pneumonia in 03/2017; Atelectasis vs pneumonia; No leukocytosis, afebrile Pulmonology consult, Dr Pineda * Patient will need a PET scan outpatient. Nasal cannula 2L ABG ordered for baseline values F/U mycoplasma, legionella NEGATIVE, strep pneumoniae procalcitonin < 0.05 NEGATIVE Blood culture 06/12 NEGATIVE up to date F/U Urine culture Sputum stain NEGATIVE, Sputum culture 06/13 grew yeast species Imaging: CT chest/abd/pelvis w/ PO and IV contrast 06/13: Stable left lower lobe infiltrate, new right lower lobe infiltrate. The overall appearance distribution suggests possibility of aspiration pneumonia. Findings are likely infectious/inflammatory perhaps aspiration pneumonia based on distribution and location. CT chest/abd/pelvis 06/12: (1) Respiratory motion artifacts limit evaluation of the chest. Left lower lobe atelectasis is identified however underlying pneumonia is not excluded given medial unilateral appearance/distribution of this finding. Underlying lesion not completely excluded either and follow-up chest CT is recommended after therapy. (2) Likely stable tiny right upper lobe nodules identified. Clinically correlate with risk factors for developing lung cancer. Appears fractures are present along cast on follow-up chest CT is advised in 1 year. Meds: Duonebs INH Q6h PRN Moxifloxacin 400mg PO QD started 06/12. Order placed to switch to IV starting Solumedrol 40mg IV Q6H Spiriva 18 mcg INH QD Fluconazole 100 mg IV daily Phenergan DM syrup 5 ml Q6H Mucinex 600 mg BID Status: Acute (2) Hypertension Assessment and Plan: Con't home med lisinopril 10mg PO QD Status: Acute (3) Hyperlipidemia Assessment and Plan: Lipid panel NORMAL Con't home med crestor 20mg PO HS Status: Acute (4) Smoking greater than 40 pack years Assessment and Plan: 40 pack year smoking history; currently smokes 1/2 pack per day Prescribed chantix outpatient but not compliant Nicotine patch TD QD Status: Acute (5) Weight loss, unintentional Assessment and Plan: 90 lb weight loss in 3 months 2/2 decreased appetite; 40 pack year smoking hx; prescribed cyproheptadine outpatient but pt states it did not help her Heme/Onc consult, Dr Page vitamin B12 703, Folate 14.4, Iron 17 (Low), TIBC 200 (Low), %Saturation 9 (Low) , Ferritin 363 HIV panel NEGATIVE, hepatitis panel NEGATIVE Serum tumor markers CEA, CA 19-9, CA-125, AFP were unremarkable Megestrol 40mg PO QD to stimulate appetite Marinol 2.5 mg PO BID added on 06/15 to further stimulate appetite Psychiatry consult, Dr Blanchard - to evaluate for depression, F/U recs Imaging: CT chest/abd/pelvis w/ PO and IV contrast does not show any signs of malignancy Breast ultrasound/mammography 12/2016: Hypoechoic nodule in the 5-6 o'clock axis of the right breast with mild macro lobulation, possibly solid nodule. Low suspicion for malignancy. BIRADS 3. Status: Acute (6) Iron Deficiency w/o anemia; likely 2/2 to poor po intake Ferrlecit 125mg IVPB QD x2 (stopped 06/14) (7) Hepatic Steatosis CT chest/abd/pelvis w/ PO and IV contrast 06/13: Hepatic steatosis. No focal masses. No intrahepatic bile duct dilatation or perihepatic ascites. 2.2 cm cyst near the dome of the liver. (8) Renal Pelvic Calculus CT chest/abd/pelvis w/ PO and IV contrast 06/13: Stable left renal calculus disease. Including renal pelvic calculus measuring 1.3 x 2.1 cm. Additional smaller lower pole calculi the largest 8.5 mm. Distention of the left collecting system unchanged. (9) Prophylactic measure Assessment and Plan: Protonix 40mg PO QD SCDs, Heparin 5000u SC Q8H Heart Healthy Diet Daughter, Carolina, #[phone] Status: Acute Disposition: Per Dr. Page, patient will need a PET scan as an outpatient. Patient's episodes of altered mental status could be due to infection. CT Head w.o. contrast ordered which did not show acute pathology. Follow up MRI w.o contrast ordered to assess further. Echocardiogram ordered as well. Case DW Dr. Josselin Travis PGY-1 <Bryson Schwab H - Last Filed: 06/15/17 13:43> Objective - Vital Signs/Intake and Output Vital Signs (last 24 hours): Temp Pulse Resp BP Pulse Ox 98.5 F 91 H 20 135/81 96 06/15/17 07:27 06/15/17 07:27 06/15/17 07:27 06/15/17 07:27 06/15/17 07:27 Intake and Output: 06/15/17 06/15/17 06:59 18:59 Intake Total 200 Balance 200 - Medications Medications: Current Medications Albuterol/Ipratropium (Duoneb 3 Mg/0.5 Mg (3 Ml) Ud) 3 ml INH RQ6 PRN PRN Reason: Shortness of Breath Last Admin: 06/15/17 13:13 Dose: 3 ml Dronabinol (Marinol) 2.5 mg PO BID [facility] Guaifenesin (Mucinex La) 600 mg PO Q12 [facility] Heparin Sodium (Porcine) (Heparin) 5,000 units SC Q8 [facility] Last Admin: 06/15/17 13:05 Dose: 5,000 units Ferric Sodium Gluconate Complex 125 mg/ Sodium Chloride 110 mls @ 110 mls/hr IVPB DAILY [facility] Stop: 06/21/17 13:31 Last Admin: 06/15/17 10:43 Dose: 110 mls/hr Fluconazole (Diflucan Iv 100 Mg/50 Ml Ns) 50 mls @ 100 mls/hr IVPB DAILY [facility] Last Admin: 06/15/17 13:17 Dose: 100 mls/hr Moxifloxacin HCl (Avelox Iv 400mg/250ml Ns) 400 mg in 250 mls @ 167 mls/hr IVPB Q24H [facility] Lisinopril (Zestril) 10 mg PO QAM [facility] Last Admin: 06/15/17 09:36 Dose: 10 mg Megestrol Acetate (Megace) 40 mg PO DAILY [facility] Last Admin: 06/15/17 09:36 Dose: 40 mg Methylprednisolone (Solu-Medrol) 40 mg IV Q6 [facility] Last Admin: 06/15/17 12:57 Dose: 40 mg Nicotine (Nicoderm Cq) 1 patch TD DAILY [facility] Last Admin: 06/15/17 09:36 Dose: 1 patch Pantoprazole Sodium (Protonix Ec Tab) 40 mg PO DAILY [facility] Last Admin: 06/15/17 09:35 Dose: 40 mg Promethazine HCl/Dextromethorphan (Phenergan Dm Syrup) 5 ml PO Q6H [facility] Stop: 06/15/17 14:01 Last Admin: 06/15/17 13:05 Dose: 5 ml Rosuvastatin Calcium (Crestor) 20 mg PO HS [facility] Last Admin: 06/14/17 21:27 Dose: 20 mg Tiotropium [place] (Spiriva) 18 mcg INH RQ24 [facility] Last Admin: 06/15/17 08:23 Dose: Not Given - Labs Labs: 06/15/17 07:14 06/15/17 07:14 PT 13.4 SECONDS (9.7-12.2) H 06/12/17 09:22 INR 1.2 06/12/17 09:22 APTT 30 SECONDS (21-34) 06/12/17 09:22 Attending/Attestation - Attestation I have personally seen and examined this patient.: Yes I have fully participated in the care of the patient.: Yes I have reviewed all pertinent clinical information, including history, physical exam and plan: Yes Notes (Text): 06/15/17 13:43 Medical attending: Patient was seen and examined by me, agrees the above note by the medical staff assistant. The patient was not under any acute distress when we saw her. Her family member was present in the room, the patient was okay with this. We had a discussion with the family member. The repeat CT scan of the chest abdomen and pelvis showed that the patient has pneumonia and not just on one side but bilaterally antibiotics including Avelox which is being continued at this time. This morning a sputum culture returned and this showed fungal growth start IV fluconazole. Imaging that was repeated with the IV contrast did not suggest any suspicious lesions or masses. We did go ahead and get a TSH, CEA, CA-19-9, CEA 125 and these were all normal limits. This being, per pulmonology as well as hematology she will need a PET scan that is outpatient Per my discussion with the family members the patient has never had a colonoscopy before. Because of the bilateral pneumonia, colonoscopy might have to be done outpatient. The patient's appetite also remains poor. She was just started on Megace yesterday to see if this would help of her appetite Thank you very much, Bryson Schwab
[2017-06-15 09:19] LABS: BANDS 1 % (0-2); LYMPHOCYTE 10 % (20-40); MONOCYTE 6 % (0-10); NEUTROPHIL 83 % (50-75); PLATELET ESTIMATE NORMAL (NORMAL); TOTAL CELLS COUNTED 100
[2017-06-15] MEDS: Pantoprazole 40 mg EC Tab PO SCH (09:35)
[2017-06-15] MEDS: Ferric Sodium Gluconat Complex 125 MG in Sodium Chloride 0.9% 100 ML IVPB SCH (10:43)
[2017-06-15] MEDS: Fluconazole IV 100mg/50 ml NS 50 ML IVPB SCH (13:17)
--- NOTE | 2017-06-15 13:40 | CP.PCM.PN ---
Subjective - Date & Time of Evaluation Date of Evaluation: 06/15/17 Time of Evaluation: 09:25 - Subjective Subjective: Patient seen and examined Breathing better but still has slight cough Denies fever or chills Appetite improving Objective - Vital Signs/Intake and Output Vital Signs (last 24 hours): Temp Pulse Resp BP Pulse Ox 98.5 F 91 H 20 135/81 96 06/15/17 07:27 06/15/17 07:27 06/15/17 07:27 06/15/17 07:27 06/15/17 07:27 Intake and Output: 06/15/17 06/15/17 06:59 18:59 Intake Total 200 Balance 200 - Medications Medications: Current Medications Albuterol/Ipratropium (Duoneb 3 Mg/0.5 Mg (3 Ml) Ud) 3 ml INH RQ6 PRN PRN Reason: Shortness of Breath Last Admin: 06/15/17 13:13 Dose: 3 ml Dronabinol (Marinol) 2.5 mg PO BID [facility] Guaifenesin (Mucinex La) 600 mg PO Q12 [facility] Heparin Sodium (Porcine) (Heparin) 5,000 units SC Q8 [facility] Last Admin: 06/15/17 13:05 Dose: 5,000 units Ferric Sodium Gluconate Complex 125 mg/ Sodium Chloride 110 mls @ 110 mls/hr IVPB DAILY [facility] Stop: 06/21/17 13:31 Last Admin: 06/15/17 10:43 Dose: 110 mls/hr Fluconazole (Diflucan Iv 100 Mg/50 Ml Ns) 50 mls @ 100 mls/hr IVPB DAILY [facility] Last Admin: 06/15/17 13:17 Dose: 100 mls/hr Moxifloxacin HCl (Avelox Iv 400mg/250ml Ns) 400 mg in 250 mls @ 167 mls/hr IVPB Q24H [facility] Lisinopril (Zestril) 10 mg PO QAM [facility] Last Admin: 06/15/17 09:36 Dose: 10 mg Megestrol Acetate (Megace) 40 mg PO DAILY [facility] Last Admin: 06/15/17 09:36 Dose: 40 mg Methylprednisolone (Solu-Medrol) 40 mg IV Q6 [facility] Last Admin: 06/15/17 12:57 Dose: 40 mg Nicotine (Nicoderm Cq) 1 patch TD DAILY [facility] Last Admin: 06/15/17 09:36 Dose: 1 patch Pantoprazole Sodium (Protonix Ec Tab) 40 mg PO DAILY [facility] Last Admin: 06/15/17 09:35 Dose: 40 mg Promethazine HCl/Dextromethorphan (Phenergan Dm Syrup) 5 ml PO Q6H [facility] Stop: 06/15/17 14:01 Last Admin: 06/15/17 13:05 Dose: 5 ml Rosuvastatin Calcium (Crestor) 20 mg PO HS [facility] Last Admin: 06/14/17 21:27 Dose: 20 mg Tiotropium [place] (Spiriva) 18 mcg INH RQ24 [facility] Last Admin: 06/15/17 08:23 Dose: Not Given - Labs Labs: 06/15/17 07:14 06/15/17 07:14 PT 13.4 SECONDS (9.7-12.2) H 06/12/17 09:22 INR 1.2 06/12/17 09:22 APTT 30 SECONDS (21-34) 06/12/17 09:22 - Head Exam Head Exam: ATRAUMATIC, NORMOCEPHALIC - Eye Exam Eye Exam: Normal appearance - ENT Exam ENT Exam: Mucous Membranes Moist - Neck Exam Neck Exam: Normal Inspection - Respiratory Exam Respiratory Exam: Decreased Breath Sounds - Cardiovascular Exam Cardiovascular Exam: REGULAR RHYTHM - GI/Abdominal Exam GI & Abdominal Exam: Soft, Normal Bowel Sounds - Extremities Exam Extremities Exam: Normal Inspection - Neurological Exam Neurological Exam: Alert, Oriented x3 Assessment and Plan (1) COPD exacerbation Assessment & Plan: Taper IV steroids Continue nebulizer treatment Continue antibiotics Case discussed with family at length Status: Acute (2) LLL pneumonia Status: Acute
--- NOTE | 2017-06-15 15:22 | MRI ---
PROCEDURE: MRI BRAIN WITHOUT CONTRAST HISTORY: altered mental status COMPARISON: None. TECHNIQUE: Multiplanar, multisequence MR images of the brain were obtained without intravenous contrast enhancement. FINDINGS: HEMORRHAGE: None DWI: No evidence of an acute or early subacute infarction. BRAIN PARENCHYMA: No mass effect or edema. Mild white matter periventricular changes are noted likely represent chronic microvascular ischemic disease. Mild volume loss is also noted. VENTRICLES: Unremarkable. No hydrocephalus. CRANIUM: Unremarkable. ORBITS: Grossly unremarkable. PARANASAL SINUSES/MASTOIDS: Clear VASCULAR SYSTEM: Skull base flow voids intact. OTHER FINDINGS: None. IMPRESSION: No evidence of acute infarction or acute pathology in the brain. Mild volume loss and mild white matter changes suggestive of chronic microvascular ischemic disease. No evidence of mass lesion mass effect or midline shift in this noncontrast enhanced MRI.
[2017-06-15] MEDS: guaiFENesin 600 mg ER Tab PO SCH (21:35)
--- NOTE | 2017-06-15 22:28 | CP.PCM.PN ---
Subjective - Date & Time of Evaluation Date of Evaluation: 06/15/17 Time of Evaluation: 13:10 - Subjective Subjective: No complaints. Objective - Vital Signs/Intake and Output Vital Signs (last 24 hours): Temp Pulse Resp BP Pulse Ox 98.5 F 91 H 20 135/81 96 06/15/17 07:27 06/15/17 07:27 06/15/17 07:27 06/15/17 07:27 06/15/17 07:27 - Medications Medications: Current Medications Albuterol/Ipratropium (Duoneb 3 Mg/0.5 Mg (3 Ml) Ud) 3 ml INH RQ6 PRN PRN Reason: Shortness of Breath Last Admin: 06/15/17 13:13 Dose: 3 ml Dronabinol (Marinol) 2.5 mg PO BID [facility] Last Admin: 06/15/17 17:51 Dose: 2.5 mg Guaifenesin (Mucinex La) 600 mg PO Q12 [facility] Last Admin: 06/15/17 21:35 Dose: 600 mg Heparin Sodium (Porcine) (Heparin) 5,000 units SC Q8 [facility] Last Admin: 06/15/17 21:39 Dose: Not Given Ferric Sodium Gluconate Complex 125 mg/ Sodium Chloride 110 mls @ 110 mls/hr IVPB DAILY [facility] Stop: 06/21/17 13:31 Last Admin: 06/15/17 10:43 Dose: 110 mls/hr Fluconazole (Diflucan Iv 100 Mg/50 Ml Ns) 50 mls @ 100 mls/hr IVPB DAILY [facility] Last Admin: 06/15/17 13:17 Dose: 100 mls/hr Moxifloxacin HCl (Avelox Iv 400mg/250ml Ns) 400 mg in 250 mls @ 167 mls/hr IVPB Q24H [facility] Lisinopril (Zestril) 10 mg PO QAM [facility] Last Admin: 06/15/17 09:36 Dose: 10 mg Megestrol Acetate (Megace) 40 mg PO DAILY [facility] Last Admin: 06/15/17 09:36 Dose: 40 mg Methylprednisolone (Solu-Medrol) 40 mg IV Q6 [facility] Last Admin: 06/15/17 17:51 Dose: 40 mg Nicotine (Nicoderm Cq) 1 patch TD DAILY [facility] Last Admin: 06/15/17 09:36 Dose: 1 patch Pantoprazole Sodium (Protonix Ec Tab) 40 mg PO DAILY [facility] Last Admin: 06/15/17 09:35 Dose: 40 mg Rosuvastatin Calcium (Crestor) 20 mg PO HS [facility] Last Admin: 06/15/17 21:35 Dose: 20 mg Tiotropium [place] (Spiriva) 18 mcg INH RQ24 [facility] Last Admin: 06/15/17 08:23 Dose: Not Given - Labs Labs: 06/15/17 07:14 06/15/17 07:14 PT 13.4 SECONDS (9.7-12.2) H 06/12/17 09:22 INR 1.2 06/12/17 09:22 APTT 30 SECONDS (21-34) 06/12/17 09:22 - Head Exam Head Exam: ATRAUMATIC - Eye Exam Eye Exam: Normal appearance - ENT Exam ENT Exam: Mucous Membranes Dry - Respiratory Exam Respiratory Exam: Decreased Breath Sounds, NORMAL BREATHING PATTERN - Cardiovascular Exam Cardiovascular Exam: +S1, +S2 - GI/Abdominal Exam GI & Abdominal Exam: Normal Bowel Sounds Assessment and Plan (1) Unintended weight loss Assessment & Plan: LLL infiltrate ? infectious, ? inflammatory ? malignancy outpatient PET CT scan after completion of antibiotics Status: Acute
[2017-06-16] MEDS: MethylPREDNISolone 40 mg Vial IV SCH ×4 (00:02→17:57)
[2017-06-16 08:00] LABS: BASO % 0.4 % (0.0-2.0); HEMOGLOBIN 13.4 g/dL (11.0-16.0); LYMPH % 7.9 % (20.0-40.0); MEAN CORPUSCULAR HEMOGLOBIN 31.2 pg (27.0-31.0); MEAN CORPUSCULAR HGB CONC 33.2 g/dL (33.0-37.0); MEAN PLATELET VOLUME 7.3 fL (7.2-11.7); MONO # 0.4 K/uL (0.0-0.8); MONO % 3.4 % (0.0-10.0); NEUT # 11.5 K/uL (1.8-7.0); NEUT % 88.3 % (50.0-75.0); PLATELET COUNT 301 K/uL (130-400); RBC 4.29 Mil/uL (3.80-5.20); RED CELL DISTRIBUTION WIDTH 12.7 % (11.5-14.5)
[2017-06-16] MEDS: Tiotropium 18 mcg Cap For Inhalation INH SCH (08:02)
[2017-06-16 08:48] LABS: ALB/GLOB RATIO 1.2 (1.0-2.1); ALBUMIN 3.5 g/dL (3.5-5.0); ALT/SGPT 28 U/L (9-52); AST/SGOT 15 U/L (14-36); BLOOD UREA NITROGEN 21 mg/dL (7-17); CALCIUM 8.8 mg/dl (8.6-10.4); GFR AFRICAN-AMERICAN > 60; GFR NON-AFRICAN AMERICAN > 60
[2017-06-16 09:30] LABS: BANDS 1 % (0-2); LYMPHOCYTE 6 % (20-40); MONOCYTE 4 % (0-10); NEUTROPHIL 89 % (50-75); PLATELET ESTIMATE NORMAL (NORMAL); TOTAL CELLS COUNTED 100
[2017-06-16 09:32] LABS: ANISOCYTOSIS SLIGHT
--- NOTE | 2017-06-16 10:15 | CP.PCM.PN ---
Subjective - Date & Time of Evaluation Date of Evaluation: 06/16/17 Time of Evaluation: 10:10 - Subjective Subjective: Patient has just returned from echo this morning. She reports feeling fine. Denies pain or headache and denies weakness. Reports her appetite is very well. (we started both marinol and megace) This being said she has no idea where she is at today. Does not NOT know place or time. Does NOT remember her family at bedside. Pleasant affect. She has had a CT of the head and yesterday we ordered an MRI of brain and these are negative for acute process or head masses. So at this time we are treating for the bilateral pneumonia seen on CT imaging with IV abx as well as IV fluconazole (she only had a yeast culture positive) hopefully as we treat her mental status will improve - however per my discussion with the family they say normally she is not forgetful like this and was working a job up until just a few days before going to hospital. Objective - Vital Signs/Intake and Output Vital Signs (last 24 hours): Temp Pulse Resp BP Pulse Ox 97.5 F L 100 H 20 148/78 91 L 06/16/17 08:00 06/16/17 08:00 06/16/17 08:00 06/16/17 08:00 06/16/17 08:00 Intake and Output: 06/16/17 06/16/17 06:59 18:59 Intake Total 120 Balance 120 - Medications Medications: Current Medications Albuterol/Ipratropium (Duoneb 3 Mg/0.5 Mg (3 Ml) Ud) 3 ml INH RQ6 PRN PRN Reason: Shortness of Breath Last Admin: 06/15/17 13:13 Dose: 3 ml Dronabinol (Marinol) 2.5 mg PO BID [facility] Last Admin: 06/15/17 17:51 Dose: 2.5 mg Guaifenesin (Mucinex La) 600 mg PO Q12 [facility] Last Admin: 06/15/17 21:35 Dose: 600 mg Heparin Sodium (Porcine) (Heparin) 5,000 units SC Q8 [facility] Last Admin: 06/16/17 06:05 Dose: 5,000 units Ferric Sodium Gluconate Complex 125 mg/ Sodium Chloride 110 mls @ 110 mls/hr IVPB DAILY [facility] Stop: 06/21/17 13:31 Last Admin: 06/15/17 10:43 Dose: 110 mls/hr Fluconazole (Diflucan Iv 100 Mg/50 Ml Ns) 50 mls @ 100 mls/hr IVPB DAILY [facility] Last Admin: 06/15/17 13:17 Dose: 100 mls/hr Moxifloxacin HCl (Avelox Iv 400mg/250ml Ns) 400 mg in 250 mls @ 167 mls/hr IVPB Q24H [facility] Lisinopril (Zestril) 10 mg PO QAM [facility] Last Admin: 06/15/17 09:36 Dose: 10 mg Megestrol Acetate (Megace) 40 mg PO DAILY [facility] Last Admin: 06/15/17 09:36 Dose: 40 mg Methylprednisolone (Solu-Medrol) 40 mg IV Q6 [facility] Last Admin: 06/16/17 06:04 Dose: 40 mg Nicotine (Nicoderm Cq) 1 patch TD DAILY [facility] Last Admin: 06/15/17 09:36 Dose: 1 patch Pantoprazole Sodium (Protonix Ec Tab) 40 mg PO DAILY [facility] Last Admin: 06/15/17 09:35 Dose: 40 mg Rosuvastatin Calcium (Crestor) 20 mg PO HS [facility] Last Admin: 06/15/17 21:35 Dose: 20 mg Tiotropium [place] (Spiriva) 18 mcg INH RQ24 [facility] Last Admin: 06/16/17 08:02 Dose: Not Given - Labs Labs: 06/16/17 07:52 06/16/17 07:52 PT 13.4 SECONDS (9.7-12.2) H 06/12/17 09:22 INR 1.2 06/12/17 09:22 APTT 30 SECONDS (21-34) 06/12/17 09:22 - Constitutional Appears: Non-toxic, No Acute Distress, Confused, Cachectic, Chronically Ill - Head Exam Head Exam: ATRAUMATIC, NORMAL INSPECTION, NORMOCEPHALIC - Eye Exam Eye Exam: EOMI, Normal appearance - ENT Exam ENT Exam: Mucous Membranes Moist - Respiratory Exam Respiratory Exam: Clear to Ausculation Bilateral, NORMAL BREATHING PATTERN - Cardiovascular Exam Cardiovascular Exam: REGULAR RHYTHM - GI/Abdominal Exam GI & Abdominal Exam: Soft, Normal Bowel Sounds - Neurological Exam Neurological Exam: Alert, Altered, Awake, CN II-XII Intact. absent: Oriented x3 Neuro motor strength exam: Left Upper Extremity: 4, Right Upper Extremity: 4, Left Lower Extremity: 4, Right Lower Extremity: 4 - Psychiatric Exam Psychiatric exam: Normal Affect, Normal Mood - Skin Skin Exam: Normal Color, Warm Assessment and Plan - Assessment and Plan (Free Text) Assessment: (1) Weight loss, unintentional Assessment and Plan: 06/16: As previously reported, we intially felt she may have some underlying malignancy - and this may still very well be the case. At some point when she leaves she would probably benefit from a PET scan and also she has never had a colonscopy according to the family members. This being said the CT scan of the chest/abdomen and pelvis with contrast has not shown a mass or lesion. She does have bilateral pneumonia for which we are treating. Some basic tumor markers were done - these were normal range. Also no palpable breast masses on exam. She was placed on megace two days ago and yesterday started on marinol. CEA, CA19-9, CA125, AFP were in normal range. 90 lb weight loss in 3 months / decreased appetite; 40 pack year smoking hx; prescribed cyproheptadine outpatient but pt states it did not help her Heme/Onc consult, Dr Page vitamin B12 703, Folate 14.4, HIV panel NEGATIVE, hepatitis panel NEGATIVE Serum tumor markers CEA, CA 19-9, CA-125, AFP were unremarkable Megestrol 40mg PO QD to stimulate appetite Marinol 2.5 mg PO BID added on 06/15 to further stimulate appetite Psychiatry consult, Dr Blanchard - to evaluate for depression, F/U recs Imaging: CT chest/abd/pelvis w/ PO and IV contrast does not show any signs of malignancy Breast ultrasound/mammography 12/2016: Hypoechoic nodule in the 5-6 o'clock axis of the right breast with mild macro lobulation, possibly solid nodule. Low suspicion for malignancy. BIRADS 3. (2) Bilateral Pneumonia Assessment and Plan: 06/16: Currently on Avelox IV 400 as well as IV Fluconzaole. A sputum culture grew out yeast. 40 pack year smoking hx; productive cough w/ white sputum for 2 months; recently treated for pneumonia in 03/2017; Pulmonology consult, Dr Pineda * Patient will need a PET scan outpatient. Nasal cannula 2L ABG ordered for baseline values F/U mycoplasma, legionella NEGATIVE, strep pneumoniae procalcitonin < 0.05 NEGATIVE Blood culture 06/12 NEGATIVE up to date F/U Urine culture Sputum stain NEGATIVE, Sputum culture 06/13 grew yeast species Imaging: CT chest/abd/pelvis w/ PO and IV contrast 06/13: Stable left lower lobe infiltrate, new right lower lobe infiltrate. The overall appearance distribution suggests possibility of aspiration pneumonia. Findings are likely infectious/inflammatory perhaps aspiration pneumonia based on distribution and location. CT chest/abd/pelvis 06/12: (1) Respiratory motion artifacts limit evaluation of the chest. Left lower lobe atelectasis is identified however underlying pneumonia is not excluded given medial unilateral appearance/distribution of this finding. Underlying lesion not completely excluded either and follow-up chest CT is recommended after therapy. (2) Likely stable tiny right upper lobe nodules identified. Clinically correlate with risk factors for developing lung cancer. Appears fractures are present along cast on follow-up chest CT is advised in 1 year. Meds: Duonebs INH Q6h PRN Moxifloxacin 400mg PO QD started 06/12. Order placed to switch to IV starting Solumedrol 40mg IV Q6H Spiriva 18 mcg INH QD Fluconazole 100 mg IV daily Phenergan DM syrup 5 ml Q6H Mucinex 600 mg BID (3) Altermental state, dementia 06/16 : According to family this is very different. She is very cooperative and pleasant to speak to, however AAOx1. Per psychiatry she maybe having depression. Also possible this AMS is from the ongoing pneumonia as well. We got a head CT and then an MRI to assess for possible mets or CVA and these were negative Pending an echo to return today, but I doubt has aortic stenosis or bacterial vegetation since her heart sounds are ok and she is NSR on EKG. (3) Hypertension Con't home med lisinopril 10mg PO QD (4) Hyperlipidemia Lipid panel NORMAL Crestor 20mg PO HS (5) Smoking greater than 40 pack years 40 pack year smoking history; currently smokes 1/2 pack per day Prescribed chantix outpatient but not compliant Nicotine patch TD QD (6) Iron Deficiency She has very poor po intake Iron 17 (Low), TIBC 200 (Low), %Saturation 9 (Low), Ferritin 363 Ferrlecit 125mg IVPB QD x2 (stopped 06/14) (7) Hepatic Steatosis CT chest/abd/pelvis w/ PO and IV contrast 06/13: Hepatic steatosis. No focal masses. No intrahepatic bile duct dilatation or perihepatic ascites. 2.2 cm cyst near the dome of the liver. (8) Renal Pelvic Calculus 06/16: She is denying back pain at this time. Because of bilateral pneumonia probably should have out patient follow up, just not now with the pneumonia going on. CT chest/abd/pelvis w/ PO and IV contrast 06/13: Stable left renal calculus disease. Including renal pelvic calculus measuring 1.3 x 2.1 cm. Additional smaller lower pole calculi the largest 8.5 mm. Distention of the left collecting system unchanged. (9) Prophylactic measure Protonix 40mg PO QD SCDs, Heparin 5000u SC Q8H [employer] Healthy Diet Daughter, [place], #[phone]
[2017-06-16] MEDS: guaiFENesin 600 mg ER Tab PO SCH ×2 (10:30→21:47)
[2017-06-16] MEDS: Fluconazole IV 100mg/50 ml NS 50 ML IVPB SCH (10:30)
[2017-06-16] MEDS: Pantoprazole 40 mg EC Tab PO SCH (10:31)
[2017-06-16] MEDS: Ferric Sodium Gluconat Complex 125 MG in Sodium Chloride 0.9% 100 ML IVPB SCH (11:00)
--- NOTE | 2017-06-16 12:43 | CP.PCM.PN ---
Subjective - Date & Time of Evaluation Date of Evaluation: 06/16/17 Time of Evaluation: 09:30 - Subjective Subjective: Patient seen and examined. Periods of confusion Less shortness of breath and cough Afebrile Being treated for pneumonia and COPD Objective - Vital Signs/Intake and Output Vital Signs (last 24 hours): Temp Pulse Resp BP Pulse Ox 97.5 F L 100 H 20 148/78 91 L 06/16/17 08:00 06/16/17 08:00 06/16/17 08:00 06/16/17 08:00 06/16/17 08:00 Intake and Output: 06/16/17 06/16/17 06:59 18:59 Intake Total 120 Balance 120 - Medications Medications: Current Medications Albuterol/Ipratropium (Duoneb 3 Mg/0.5 Mg (3 Ml) Ud) 3 ml INH RQ6 PRN PRN Reason: Shortness of Breath Last Admin: 06/15/17 13:13 Dose: 3 ml Dronabinol (Marinol) 2.5 mg PO BID [facility] Last Admin: 06/16/17 10:30 Dose: 2.5 mg Guaifenesin (Mucinex La) 600 mg PO Q12 [facility] Last Admin: 06/16/17 10:30 Dose: 600 mg Heparin Sodium (Porcine) (Heparin) 5,000 units SC Q8 [facility] Last Admin: 06/16/17 06:05 Dose: 5,000 units Ferric Sodium Gluconate Complex 125 mg/ Sodium Chloride 110 mls @ 110 mls/hr IVPB DAILY [facility] Stop: 06/21/17 13:31 Last Admin: 06/16/17 11:00 Dose: 110 mls/hr Fluconazole (Diflucan Iv 100 Mg/50 Ml Ns) 50 mls @ 100 mls/hr IVPB DAILY [facility] Last Admin: 06/16/17 10:30 Dose: 100 mls/hr Moxifloxacin HCl (Avelox Iv 400mg/250ml Ns) 400 mg in 250 mls @ 167 mls/hr IVPB Q24H [facility] Lisinopril (Zestril) 10 mg PO QAM [facility] Last Admin: 06/16/17 10:30 Dose: 10 mg Megestrol Acetate (Megace) 40 mg PO DAILY [facility] Last Admin: 06/16/17 10:31 Dose: 40 mg Methylprednisolone (Solu-Medrol) 40 mg IV Q6 [facility] Last Admin: 06/16/17 06:04 Dose: 40 mg Nicotine (Nicoderm Cq) 1 patch TD DAILY [facility] Last Admin: 06/16/17 10:33 Dose: 1 patch Pantoprazole Sodium (Protonix Ec Tab) 40 mg PO DAILY [facility] Last Admin: 06/16/17 10:31 Dose: 40 mg Rosuvastatin Calcium (Crestor) 20 mg PO HS [facility] Last Admin: 06/15/17 21:35 Dose: 20 mg Tiotropium [place] (Spiriva) 18 mcg INH RQ24 [facility] Last Admin: 06/16/17 08:02 Dose: Not Given - Labs Labs: 06/16/17 07:52 06/16/17 07:52 PT 13.4 SECONDS (9.7-12.2) H 06/12/17 09:22 INR 1.2 06/12/17 09:22 APTT 30 SECONDS (21-34) 06/12/17 09:22 - Head Exam Head Exam: ATRAUMATIC, NORMOCEPHALIC - Eye Exam Eye Exam: Normal appearance - ENT Exam ENT Exam: Mucous Membranes Moist - Neck Exam Neck Exam: Normal Inspection - Respiratory Exam Respiratory Exam: Decreased Breath Sounds - Cardiovascular Exam Cardiovascular Exam: REGULAR RHYTHM - GI/Abdominal Exam GI & Abdominal Exam: Soft, Normal Bowel Sounds Assessment and Plan (1) COPD exacerbation Assessment & Plan: continue steroids, nebulizer treatment IV antibiotics Follow-up chest x-ray Status: Acute (2) LLL pneumonia Status: Acute
[2017-06-16] MEDS: Moxifloxacin IV 400mg/250ml NS 400 MG/250 ML BAG IVPB SCH (12:53)
--- NOTE | 2017-06-16 20:09 | CP.PCM.PN ---
Subjective - Date & Time of Evaluation Date of Evaluation: 06/16/17 Time of Evaluation: 19:05 - Subjective Subjective: Feeling better, mental status slightly improved Objective - Vital Signs/Intake and Output Vital Signs (last 24 hours): Temp Pulse Resp BP Pulse Ox 98 F 92 H 20 127/70 95 06/16/17 16:07 06/16/17 16:07 06/16/17 16:07 06/16/17 16:07 06/16/17 16:07 Intake and Output: 06/16/17 06/17/17 18:59 06:59 Intake Total 800 Balance 800 - Medications Medications: Current Medications Albuterol/Ipratropium (Duoneb 3 Mg/0.5 Mg (3 Ml) Ud) 3 ml INH RQ6 PRN PRN Reason: Shortness of Breath Last Admin: 06/15/17 13:13 Dose: 3 ml Dronabinol (Marinol) 2.5 mg PO BID [facility] Last Admin: 06/16/17 17:57 Dose: 2.5 mg Guaifenesin (Mucinex La) 600 mg PO Q12 [facility] Last Admin: 06/16/17 10:30 Dose: 600 mg Heparin Sodium (Porcine) (Heparin) 5,000 units SC Q8 [facility] Last Admin: 06/16/17 14:57 Dose: 5,000 units Ferric Sodium Gluconate Complex 125 mg/ Sodium Chloride 110 mls @ 110 mls/hr IVPB DAILY [facility] Stop: 06/21/17 13:31 Last Admin: 06/16/17 11:00 Dose: 110 mls/hr Fluconazole (Diflucan Iv 100 Mg/50 Ml Ns) 50 mls @ 100 mls/hr IVPB DAILY [facility] Last Admin: 06/16/17 10:30 Dose: 100 mls/hr Moxifloxacin HCl (Avelox Iv 400mg/250ml Ns) 400 mg in 250 mls @ 167 mls/hr IVPB Q24H [facility] Last Admin: 06/16/17 12:53 Dose: 167 mls/hr Lisinopril (Zestril) 10 mg PO QAM [facility] Last Admin: 06/16/17 10:30 Dose: 10 mg Megestrol Acetate (Megace) 40 mg PO DAILY [facility] Last Admin: 06/16/17 10:31 Dose: 40 mg Methylprednisolone (Solu-Medrol) 40 mg IV Q6 [facility] Last Admin: 06/16/17 17:57 Dose: 40 mg Nicotine (Nicoderm Cq) 1 patch TD DAILY [facility] Last Admin: 06/16/17 10:33 Dose: 1 patch Pantoprazole Sodium (Protonix Ec Tab) 40 mg PO DAILY [facility] Last Admin: 06/16/17 10:31 Dose: 40 mg Rosuvastatin Calcium (Crestor) 20 mg PO HS [facility] Last Admin: 06/15/17 21:35 Dose: 20 mg Tiotropium [place] (Spiriva) 18 mcg INH RQ24 [facility] Last Admin: 06/16/17 08:02 Dose: Not Given - Labs Labs: 06/16/17 07:52 06/16/17 07:52 PT 13.4 SECONDS (9.7-12.2) H 06/12/17 09:22 INR 1.2 06/12/17 09:22 APTT 30 SECONDS (21-34) 06/12/17 09:22 - Head Exam Head Exam: ATRAUMATIC - Eye Exam Eye Exam: Normal appearance - ENT Exam ENT Exam: Mucous Membranes Dry - Respiratory Exam Respiratory Exam: NORMAL BREATHING PATTERN - Cardiovascular Exam Cardiovascular Exam: +S1, +S2 - GI/Abdominal Exam GI & Abdominal Exam: Normal Bowel Sounds - Extremities Exam Extremities Exam: Normal Inspection Assessment and Plan (1) Unintended weight loss Assessment & Plan: LLL infiltrate ? infectious, ? inflammatory ? malignancy outpatient PET CT scan after completion of antibiotics Status: Acute
[2017-06-17] MEDS: MethylPREDNISolone 40 mg Vial IV SCH ×4 (00:15→18:02)
[2017-06-17 07:56] LABS: BASO % 0.2 % (0.0-2.0); HEMOGLOBIN 13.9 g/dL (11.0-16.0); LYMPH # 1.3 K/uL (1.0-4.3); LYMPH % 9.4 % (20.0-40.0); MEAN CELL VOLUME 93.3 fL (81.0-99.0); MEAN CORPUSCULAR HEMOGLOBIN 31.5 pg (27.0-31.0); MEAN CORPUSCULAR HGB CONC 33.8 g/dL (33.0-37.0); MEAN PLATELET VOLUME 7.3 fL (7.2-11.7); MONO # 0.7 K/uL (0.0-0.8); MONO % 4.9 % (0.0-10.0); NEUT # 12.1 K/uL (1.8-7.0); NEUT % 85.5 % (50.0-75.0); PLATELET COUNT 344 K/uL (130-400); RBC 4.42 Mil/uL (3.80-5.20); RED CELL DISTRIBUTION WIDTH 12.5 % (11.5-14.5); WHITE BLOOD COUNT 14.2 K/uL (4.8-10.8)
[2017-06-17 08:41] LABS: ALB/GLOB RATIO 1.2 (1.0-2.1); ALBUMIN 3.5 g/dL (3.5-5.0); ALT/SGPT 30 U/L (9-52); AST/SGOT 17 U/L (14-36); BLOOD UREA NITROGEN 19 mg/dL (7-17); CALCIUM 8.9 mg/dl (8.6-10.4); GFR AFRICAN-AMERICAN > 60; GFR NON-AFRICAN AMERICAN > 60
[2017-06-17 09:12] LABS: LYMPHOCYTE 9 % (20-40); MONOCYTE 4 % (0-10); NEUTROPHIL 87 % (50-75); TOTAL CELLS COUNTED 100
[2017-06-17 09:13] LABS: ANISOCYTOSIS SLIGHT; LARGE PLATELETS PRESENT; PLATELET ESTIMATE NORMAL (NORMAL); TOXIC GRANULATION PRESENT
[2017-06-17 09:14] LABS: GIANT PLATELETS PRESENT
[2017-06-17] MEDS: Tiotropium 18 mcg Cap For Inhalation INH SCH (09:52)
[2017-06-17] MEDS: Fluconazole IV 100mg/50 ml NS 50 ML IVPB SCH (10:30)
[2017-06-17] MEDS: Pantoprazole 40 mg EC Tab PO SCH (10:57)
[2017-06-17] MEDS: guaiFENesin 600 mg ER Tab PO SCH ×2 (10:57→21:19)
[2017-06-17] MEDS: Ferric Sodium Gluconat Complex 125 MG in Sodium Chloride 0.9% 100 ML IVPB SCH (11:00)
--- NOTE | 2017-06-17 11:26 | CP.PCM.PN ---
Subjective - Date & Time of Evaluation Date of Evaluation: 06/17/17 Time of Evaluation: 11:00 - Subjective Subjective: Patient was seen and examined by me Per the CP they said she took 100% of her meal. Today she was answering questions more appropriately. She knew she was at [facility] and also knew it was New Years. Metal state much better today. She was able to walk into hallway and back to room without any chest pain or shortness of breath, denied fevers, denied chills. So at this time we are still treating pneumonia. Imaging of the head with both CT and MRI negative. Objective - Vital Signs/Intake and Output Vital Signs (last 24 hours): Temp Pulse Resp BP Pulse Ox 98.8 F 90 20 137/81 95 06/17/17 08:00 06/17/17 08:00 06/17/17 08:00 06/17/17 08:00 06/17/17 08:00 Intake and Output: 06/17/17 06/17/17 06:59 18:59 Intake Total 200 Balance 200 - Medications Medications: Current Medications Albuterol/Ipratropium (Duoneb 3 Mg/0.5 Mg (3 Ml) Ud) 3 ml INH RQ6 PRN PRN Reason: Shortness of Breath Last Admin: 06/15/17 13:13 Dose: 3 ml Dronabinol (Marinol) 2.5 mg PO BID [facility] Last Admin: 06/16/17 17:57 Dose: 2.5 mg Guaifenesin (Mucinex La) 600 mg PO Q12 [facility] Last Admin: 06/17/17 10:57 Dose: 600 mg Heparin Sodium (Porcine) (Heparin) 5,000 units SC Q8 [facility] Last Admin: 06/17/17 06:11 Dose: 5,000 units Ferric Sodium Gluconate Complex 125 mg/ Sodium Chloride 110 mls @ 110 mls/hr IVPB DAILY [facility] Stop: 06/21/17 13:31 Last Admin: 06/16/17 11:00 Dose: 110 mls/hr Fluconazole (Diflucan Iv 100 Mg/50 Ml Ns) 50 mls @ 100 mls/hr IVPB DAILY [facility] Last Admin: 06/17/17 10:30 Dose: 100 mls/hr Moxifloxacin HCl (Avelox Iv 400mg/250ml Ns) 400 mg in 250 mls @ 167 mls/hr IVPB Q24H [facility] Last Admin: 06/16/17 12:53 Dose: 167 mls/hr Lisinopril (Zestril) 10 mg PO QAM [facility] Last Admin: 06/17/17 10:57 Dose: 10 mg Megestrol Acetate (Megace) 40 mg PO DAILY [facility] Last Admin: 06/17/17 10:57 Dose: 40 mg Methylprednisolone (Solu-Medrol) 40 mg IV Q6 [facility] Last Admin: 06/17/17 06:12 Dose: 40 mg Nicotine (Nicoderm Cq) 1 patch TD DAILY [facility] Last Admin: 06/17/17 10:57 Dose: 1 patch Pantoprazole Sodium (Protonix Ec Tab) 40 mg PO DAILY [facility] Last Admin: 06/17/17 10:57 Dose: 40 mg Rosuvastatin Calcium (Crestor) 20 mg PO HS [facility] Last Admin: 06/16/17 21:47 Dose: 20 mg Tiotropium [place] (Spiriva) 18 mcg INH RQ24 [facility] Last Admin: 06/17/17 09:52 Dose: Not Given - Labs Labs: 06/17/17 07:43 06/17/17 07:43 PT 13.4 SECONDS (9.7-12.2) H 06/12/17 09:22 INR 1.2 06/12/17 09:22 APTT 30 SECONDS (21-34) 06/12/17 09:22 Assessment and Plan - Assessment and Plan (Free Text) Assessment: (1) Weight loss, unintentional Assessment and Plan: 06/17: she has been on megace as well as marinol, appetite was better last night and this morning 06/16: As previously reported, we intially felt she may have some underlying malignancy - and this may still very well be the case. At some point when she leaves she would probably benefit from a PET scan and also she has never had a colonscopy according to the family members. This being said the CT scan of the chest/abdomen and pelvis with contrast has not shown a mass or lesion. She does have bilateral pneumonia for which we are treating. Some basic tumor markers were done - these were normal range. Also no palpable breast masses on exam. She was placed on megace two days ago and yesterday started on marinol. CEA, CA19-9, CA125, AFP were in normal range. 90 lb weight loss in 3 months 2/2 decreased appetite; 40 pack year smoking hx; prescribed cyproheptadine outpatient but pt states it did not help her Heme/Onc consult, Dr Page vitamin B12 703, Folate 14.4, HIV panel NEGATIVE, hepatitis panel NEGATIVE Serum tumor markers CEA, CA 19-9, CA-125, AFP were unremarkable Megestrol 40mg PO QD to stimulate appetite Marinol 2.5 mg PO BID added on 06/15 to further stimulate appetite Psychiatry consult, Dr Blanchard - to evaluate for depression, F/U recs Imaging: CT chest/abd/pelvis w/ PO and IV contrast does not show any signs of malignancy Breast ultrasound/mammography 12/2016: Hypoechoic nodule in the 5-6 o'clock axis of the right breast with mild macro lobulation, possibly solid nodule. Low suspicion for malignancy. BIRADS 3. (2) Bilateral Pneumonia Assessment and Plan: 06/16: Currently on Avelox IV 400 as well as IV Fluconzaole. A sputum culture grew out yeast. 40 pack year smoking hx; productive cough w/ white sputum for 2 months; recently treated for pneumonia in 03/2017; Pulmonology consult, Dr Pineda * Patient will need a PET scan outpatient. Nasal cannula 2L ABG ordered for baseline values F/U mycoplasma, legionella NEGATIVE, strep pneumoniae procalcitonin < 0.05 NEGATIVE Blood culture 06/12 NEGATIVE up to date F/U Urine culture Sputum stain NEGATIVE, Sputum culture 06/13 grew yeast species Imaging: CT chest/abd/pelvis w/ PO and IV contrast 06/13: Stable left lower lobe infiltrate, new right lower lobe infiltrate. The overall appearance distribution suggests possibility of aspiration pneumonia. Findings are likely infectious/inflammatory perhaps aspiration pneumonia based on distribution and location. CT chest/abd/pelvis 06/12: (1) Respiratory motion artifacts limit evaluation of the chest. Left lower lobe atelectasis is identified however underlying pneumonia is not excluded given medial unilateral appearance/distribution of this finding. Underlying lesion not completely excluded either and follow-up chest CT is recommended after therapy. (2) Likely stable tiny right upper lobe nodules identified. Clinically correlate with risk factors for developing lung cancer. Appears fractures are present along cast on follow-up chest CT is advised in 1 year. Meds: Duonebs INH Q6h PRN Moxifloxacin 400mg PO QD started 06/12. Order placed to switch to IV starting Solumedrol 40mg IV Q6H Spiriva 18 mcg INH QD Fluconazole 100 mg IV daily Phenergan DM syrup 5 ml Q6H Mucinex 600 mg BID (3) Altermental state, dementia 06/16 : According to family this is very different. She is very cooperative and pleasant to speak to, however AAOx1. Per psychiatry she maybe having depression. Also possible this AMS is from the ongoing pneumonia as well. We got a head CT and then an MRI to assess for possible mets or CVA and these were negative Pending an echo to return today, but I doubt has aortic stenosis or bacterial vegetation since her heart sounds are ok and she is NSR on EKG. (3) Hypertension Con't home med lisinopril 10mg PO QD (4) Hyperlipidemia Lipid panel NORMAL Crestor 20mg PO HS (5) Smoking greater than 40 pack years 40 pack year smoking history; currently smokes 1/2 pack per day Prescribed chantix outpatient but not compliant Nicotine patch TD QD (6) Iron Deficiency She has very poor po intake Iron 17 (Low), TIBC 200 (Low), %Saturation 9 (Low), Ferritin 363 Ferrlecit 125mg IVPB QD x2 (stopped 06/14) (7) Hepatic Steatosis CT chest/abd/pelvis w/ PO and IV contrast 06/13: Hepatic steatosis. No focal masses. No intrahepatic bile duct dilatation or perihepatic ascites. 2.2 cm cyst near the dome of the liver. (8) Renal Pelvic Calculus 06/16: She is denying back pain at this time. Because of bilateral pneumonia probably should have out patient follow up, just not now with the pneumonia going on. CT chest/abd/pelvis w/ PO and IV contrast 06/13: Stable left renal calculus disease. Including renal pelvic calculus measuring 1.3 x 2.1 cm. Additional smaller lower pole calculi the largest 8.5 mm. Distention of the left collecting system unchanged. (9) Prophylactic measure Protonix 40mg PO QD SCDs, Heparin 5000u SC Q8H [employer] Healthy Diet Daughter, [place], #[phone]
[2017-06-17] MEDS: Moxifloxacin IV 400mg/250ml NS 400 MG/250 ML BAG IVPB SCH (12:33)
[2017-06-18] MEDS: MethylPREDNISolone 40 mg Vial IV SCH ×4 (00:03→18:24)
[2017-06-18 07:27] LABS: BASO % 0.3 % (0.0-2.0); HEMOGLOBIN 14.5 g/dL (11.0-16.0); LYMPH # 1.2 K/uL (1.0-4.3); LYMPH % 9.5 % (20.0-40.0); MEAN CELL VOLUME 93.1 fL (81.0-99.0); MEAN CORPUSCULAR HEMOGLOBIN 31.8 pg (27.0-31.0); MEAN CORPUSCULAR HGB CONC 34.2 g/dL (33.0-37.0); MEAN PLATELET VOLUME 7.2 fL (7.2-11.7); MONO # 0.6 K/uL (0.0-0.8); NEUT # 10.7 K/uL (1.8-7.0); NEUT % 85.2 % (50.0-75.0); PLATELET COUNT 374 K/uL (130-400); RBC 4.57 Mil/uL (3.80-5.20); RED CELL DISTRIBUTION WIDTH 12.7 % (11.5-14.5); WHITE BLOOD COUNT 12.6 K/uL (4.8-10.8)
[2017-06-18 08:21] LABS: ALB/GLOB RATIO 1.2 (1.0-2.1); ALBUMIN 3.4 g/dL (3.5-5.0); ALT/SGPT 33 U/L (9-52); AST/SGOT 17 U/L (14-36); BLOOD UREA NITROGEN 21 mg/dL (7-17); CALCIUM 8.9 mg/dl (8.6-10.4); GFR AFRICAN-AMERICAN > 60; GFR NON-AFRICAN AMERICAN > 60
[2017-06-18] MEDS ORDERED: Ferric Sodium Gluconat Complex 62.5 mg/5 ml Vial ONE (09:35)
[2017-06-18] MEDS: guaiFENesin 600 mg ER Tab PO SCH ×2 (09:37→22:11)
[2017-06-18] MEDS: Pantoprazole 40 mg EC Tab PO SCH (09:37)
[2017-06-18] MEDS: Fluconazole IV 100mg/50 ml NS 50 ML IVPB SCH (09:41)
[2017-06-18] MEDS: Tiotropium 18 mcg Cap For Inhalation INH SCH (09:46)
[2017-06-18 09:47] LABS: BANDS 1 % (0-2); LYMPHOCYTE 7 % (20-40); MONOCYTE 4 % (0-10); NEUTROPHIL 88 % (50-75); PLATELET ESTIMATE NORMAL (NORMAL); TOTAL CELLS COUNTED 100
[2017-06-18 09:48] LABS: ANISOCYTOSIS SLIGHT; LARGE PLATELETS PRESENT; TOXIC GRANULATION PRESENT
[2017-06-18] MEDS: Ferric Sodium Gluconat Complex 125 MG in Sodium Chloride 0.9% 100 ML IVPB SCH (10:54)
--- NOTE | 2017-06-18 12:00 | CP.PCM.PN ---
Subjective - Date & Time of Evaluation Date of Evaluation: 06/18/17 Time of Evaluation: 11:45 - Subjective Subjective: Patient was seen and examined. She was not in any acute distress at this time. Per the CPs the patient ate very well breakfast as well as dinner. She is also ambulating as well. Today she was able to correctly tell me location and month. She is not confused like when she initally came in. Objective - Vital Signs/Intake and Output Vital Signs (last 24 hours): Temp Pulse Resp BP Pulse Ox 98.5 F 85 20 159/88 H 98 06/18/17 07:32 06/18/17 07:32 06/18/17 07:32 06/18/17 07:32 06/18/17 07:32 Intake and Output: 06/18/17 06/18/17 06:59 18:59 Intake Total 150 Balance 150 - Medications Medications: Current Medications Albuterol/Ipratropium (Duoneb 3 Mg/0.5 Mg (3 Ml) Ud) 3 ml INH RQ6 PRN PRN Reason: Shortness of Breath Last Admin: 06/15/17 13:13 Dose: 3 ml Dronabinol (Marinol) 2.5 mg PO BID [facility] Last Admin: 06/18/17 09:37 Dose: 2.5 mg Guaifenesin (Mucinex La) 600 mg PO Q12 [facility] Last Admin: 06/18/17 09:37 Dose: 600 mg Heparin Sodium (Porcine) (Heparin) 5,000 units SC Q8 [facility] Last Admin: 06/18/17 06:09 Dose: 5,000 units Ferric Sodium Gluconate Complex 125 mg/ Sodium Chloride 110 mls @ 110 mls/hr IVPB DAILY [facility] Stop: 06/21/17 13:31 Last Admin: 06/18/17 10:54 Dose: 110 mls/hr Fluconazole (Diflucan Iv 100 Mg/50 Ml Ns) 50 mls @ 100 mls/hr IVPB DAILY [facility] Last Admin: 06/18/17 09:41 Dose: 100 mls/hr Moxifloxacin HCl (Avelox Iv 400mg/250ml Ns) 400 mg in 250 mls @ 167 mls/hr IVPB Q24H [facility] Last Admin: 06/17/17 12:33 Dose: 167 mls/hr Lisinopril (Zestril) 10 mg PO QAM [facility] Last Admin: 06/18/17 09:37 Dose: 10 mg Megestrol Acetate (Megace) 40 mg PO DAILY [facility] Last Admin: 06/18/17 09:37 Dose: 40 mg Methylprednisolone (Solu-Medrol) 40 mg IV Q6 [facility] Last Admin: 06/18/17 06:09 Dose: 40 mg Nicotine (Nicoderm Cq) 1 patch TD DAILY [facility] Last Admin: 06/18/17 09:37 Dose: 1 patch Pantoprazole Sodium (Protonix Ec Tab) 40 mg PO DAILY [facility] Last Admin: 06/18/17 09:37 Dose: 40 mg Rosuvastatin Calcium (Crestor) 20 mg PO HS [facility] Last Admin: 06/17/17 21:18 Dose: 20 mg Tiotropium [place] (Spiriva) 18 mcg INH RQ24 [facility] Last Admin: 06/18/17 09:46 Dose: Not Given - Labs Labs: 06/18/17 07:22 06/18/17 07:22 PT 13.4 SECONDS (9.7-12.2) H 06/12/17 09:22 INR 1.2 06/12/17 09:22 APTT 30 SECONDS (21-34) 06/12/17 09:22 - Constitutional Appears: Well, Non-toxic, No Acute Distress, Cachectic, Chronically Ill - Head Exam Head Exam: NORMAL INSPECTION, NORMOCEPHALIC - Eye Exam Eye Exam: EOMI, Normal appearance - ENT Exam ENT Exam: Mucous Membranes Moist - Respiratory Exam Respiratory Exam: Clear to Ausculation Bilateral, NORMAL BREATHING PATTERN - GI/Abdominal Exam GI & Abdominal Exam: Soft, Normal Bowel Sounds. absent: Firm, Guarding, Rigid, Tenderness - Neurological Exam Neurological Exam: Alert, Awake, Oriented x3 Neuro motor strength exam: Left Upper Extremity: 5, Right Upper Extremity: 5, Left Lower Extremity: 5, Right Lower Extremity: 5 - Psychiatric Exam Psychiatric exam: Normal Affect, Normal Mood - Skin Skin Exam: Normal Color, Warm Assessment and Plan - Assessment and Plan (Free Text) Assessment: (1) Weight loss, unintentional Assessment and Plan: 06/18/2017: She has been eating very well. She is currently started on megace as well as marinol. Probably can be discharged soon however as I had spoken to the family before she will need to later have a PET scan as well as a colonscopy as she has never had a colonscopy before. 06/16: As previously reported, we intially felt she may have some underlying malignancy - and this may still very well be the case. At some point when she leaves she would probably benefit from a PET scan and also she has never had a colonscopy according to the family members. This being said the CT scan of the chest/abdomen and pelvis with contrast has not shown a mass or lesion. She does have bilateral pneumonia for which we are treating. Some basic tumor markers were done - these were normal range. Also no palpable breast masses on exam. She was placed on megace two days ago and yesterday started on marinol. CEA, CA19-9, CA125, AFP were in normal range. 90 lb weight loss in 3 months / decreased appetite; 40 pack year smoking hx; prescribed cyproheptadine outpatient but pt states it did not help her Heme/Onc consult, Dr Page vitamin B12 703, Folate 14.4, HIV panel NEGATIVE, hepatitis panel NEGATIVE Serum tumor markers CEA, CA 19-9, CA-125, AFP were unremarkable Megestrol 40mg PO QD to stimulate appetite Marinol 2.5 mg PO BID added on 06/15 to further stimulate appetite Psychiatry consult, Dr Blanchard - to evaluate for depression, F/U recs Imaging: CT chest/abd/pelvis w/ PO and IV contrast does not show any signs of malignancy Breast ultrasound/mammography 12/2016: Hypoechoic nodule in the 5-6 o'clock axis of the right breast with mild macro lobulation, possibly solid nodule. Low suspicion for malignancy. BIRADS 3. (2) Bilateral Pneumonia Assessment and Plan: 06/18/2017: Change Avelox over to PO, the blood cultures are negative and also the WBC are stable. Currently afebrile at this time. Pro calcitonin level is low. 06/16: Currently on Avelox IV 400 as well as IV Fluconzaole. A sputum culture grew out yeast. 40 pack year smoking hx; productive cough w/ white sputum for 2 months; recently treated for pneumonia in 03/2017; Pulmonology consult, Dr Pineda * Patient will need a PET scan outpatient. Nasal cannula 2L ABG ordered for baseline values F/U mycoplasma, legionella NEGATIVE, strep pneumoniae procalcitonin < 0.05 NEGATIVE Blood culture 06/12 NEGATIVE up to date F/U Urine culture Sputum stain NEGATIVE, Sputum culture 06/13 grew yeast species Imaging: CT chest/abd/pelvis w/ PO and IV contrast 06/13: Stable left lower lobe infiltrate, new right lower lobe infiltrate. The overall appearance distribution suggests possibility of aspiration pneumonia. Findings are likely infectious/inflammatory perhaps aspiration pneumonia based on distribution and location. CT chest/abd/pelvis 06/12: (1) Respiratory motion artifacts limit evaluation of the chest. Left lower lobe atelectasis is identified however underlying pneumonia is not excluded given medial unilateral appearance/distribution of this finding. Underlying lesion not completely excluded either and follow-up chest CT is recommended after therapy. (2) Likely stable tiny right upper lobe nodules identified. Clinically correlate with risk factors for developing lung cancer. Appears fractures are present along cast on follow-up chest CT is advised in 1 year. Meds: Duonebs INH Q6h PRN Moxifloxacin 400mg PO QD started 06/12. Order placed to switch to IV starting Solumedrol 40mg IV Q6H Spiriva 18 mcg INH QD Fluconazole 100 mg IV daily Phenergan DM syrup 5 ml Q6H Mucinex 600 mg BID (3) Altermental state, dementia 06/18/2017: Mental status is more appropriate now. She is now eating and also ambulating without difficulty 06/16 : According to family this is very different. She is very cooperative and pleasant to speak to, however AAOx1. Per psychiatry she maybe having depression. Also possible this AMS is from the ongoing pneumonia as well. We got a head CT and then an MRI to assess for possible mets or CVA and these were negative Pending an echo to return today, but I doubt has aortic stenosis or bacterial vegetation since her heart sounds are ok and she is NSR on EKG. (3) Hypertension Lisinopril 10mg PO QD (4) Hyperlipidemia Lipid panel NORMAL Crestor 20mg PO HS (5) Smoking greater than 40 pack years 40 pack year smoking history; currently smokes 1/2 pack per day Prescribed chantix outpatient but not compliant Nicotine patch TD QD (6) Iron Deficiency She has very poor po intake Iron 17 (Low), TIBC 200 (Low), %Saturation 9 (Low), Ferritin 363 Ferrlecit 125mg IVPB QD x2 (stopped 06/14) (7) Hepatic Steatosis CT chest/abd/pelvis w/ PO and IV contrast 06/13: Hepatic steatosis. No focal masses. No intrahepatic bile duct dilatation or perihepatic ascites. 2.2 cm cyst near the dome of the liver. (8) Renal Pelvic Calculus 06/16: She is denying back pain at this time. Because of bilateral pneumonia probably should have out patient follow up, just not now with the pneumonia going on. CT chest/abd/pelvis w/ PO and IV contrast 06/13: Stable left renal calculus disease. Including renal pelvic calculus measuring 1.3 x 2.1 cm. Additional smaller lower pole calculi the largest 8.5 mm. Distention of the left collecting system unchanged. (9) Prophylactic measure Protonix 40mg PO QD SCDs, Heparin 5000u SC Q8H Heart Healthy Diet Daughter, Carolina, #[phone]
[2017-06-18] MEDS: Moxifloxacin IV 400mg/250ml NS 400 MG/250 ML BAG IVPB SCH (13:21)
--- NOTE | 2017-06-18 15:37 | CP.PCM.PN ---
Subjective - Date & Time of Evaluation Date of Evaluation: 06/18/17 Time of Evaluation: 14:15 - Subjective Subjective: patient seen and examined Sitting comfortably Breathing much improved Afebrile No chest pain Being treated for pneumoniaand COPD Objective - Vital Signs/Intake and Output Vital Signs (last 24 hours): Temp Pulse Resp BP Pulse Ox 98.5 F 85 20 151/88 H 98 06/18/17 09:00 06/18/17 09:00 06/18/17 09:00 06/18/17 09:00 06/18/17 09:00 Intake and Output: 06/18/17 06/18/17 06:59 18:59 Intake Total 150 860 Balance 150 860 - Medications Medications: Current Medications Albuterol/Ipratropium (Duoneb 3 Mg/0.5 Mg (3 Ml) Ud) 3 ml INH RQ6 PRN PRN Reason: Shortness of Breath Last Admin: 06/15/17 13:13 Dose: 3 ml Dronabinol (Marinol) 2.5 mg PO BID [facility] Last Admin: 06/18/17 09:37 Dose: 2.5 mg Guaifenesin (Mucinex La) 600 mg PO Q12 [facility] Last Admin: 06/18/17 09:37 Dose: 600 mg Heparin Sodium (Porcine) (Heparin) 5,000 units SC Q8 [facility] Last Admin: 06/18/17 13:10 Dose: 5,000 units Ferric Sodium Gluconate Complex 125 mg/ Sodium Chloride 110 mls @ 110 mls/hr IVPB DAILY [facility] Stop: 06/21/17 13:31 Last Admin: 06/18/17 10:54 Dose: 110 mls/hr Fluconazole (Diflucan Iv 100 Mg/50 Ml Ns) 50 mls @ 100 mls/hr IVPB DAILY [facility] Last Admin: 06/18/17 09:41 Dose: 100 mls/hr Lisinopril (Zestril) 10 mg PO QAM [facility] Last Admin: 06/18/17 09:37 Dose: 10 mg Megestrol Acetate (Megace) 40 mg PO DAILY [facility] Last Admin: 06/18/17 09:37 Dose: 40 mg Methylprednisolone (Solu-Medrol) 40 mg IV Q6 [facility] Last Admin: 06/18/17 12:48 Dose: 40 mg Moxifloxacin HCl (Avelox) 400 mg PO DAILY [facility] Nicotine (Nicoderm Cq) 1 patch TD DAILY [facility] Last Admin: 06/18/17 09:37 Dose: 1 patch Pantoprazole Sodium (Protonix Ec Tab) 40 mg PO DAILY [facility] Last Admin: 06/18/17 09:37 Dose: 40 mg Rosuvastatin Calcium (Crestor) 20 mg PO HS [facility] Last Admin: 06/17/17 21:18 Dose: 20 mg Tiotropium [place] (Spiriva) 18 mcg INH RQ24 [facility] Last Admin: 06/18/17 09:46 Dose: Not Given - Labs Labs: 06/18/17 07:22 06/18/17 07:22 PT 13.4 SECONDS (9.7-12.2) H 06/12/17 09:22 INR 1.2 06/12/17 09:22 APTT 30 SECONDS (21-34) 06/12/17 09:22 Assessment and Plan (1) COPD exacerbation Status: Acute (2) LLL pneumonia Status: Acute
[2017-06-19] MEDS: MethylPREDNISolone 40 mg Vial IV SCH ×3 (00:13→12:16)
[2017-06-19 06:43] LABS: BASO % 0.2 % (0.0-2.0); HEMOGLOBIN 14.7 g/dL (11.0-16.0); LYMPH # 1.3 K/uL (1.0-4.3); LYMPH % 9.2 % (20.0-40.0); MEAN CELL VOLUME 92.9 fL (81.0-99.0); MEAN CORPUSCULAR HEMOGLOBIN 31.6 pg (27.0-31.0); MEAN PLATELET VOLUME 7.1 fL (7.2-11.7); MONO # 0.7 K/uL (0.0-0.8); MONO % 4.9 % (0.0-10.0); NEUT # 12.1 K/uL (1.8-7.0); NEUT % 85.7 % (50.0-75.0); PLATELET COUNT 401 K/uL (130-400); RBC 4.65 Mil/uL (3.80-5.20); RED CELL DISTRIBUTION WIDTH 12.6 % (11.5-14.5); WHITE BLOOD COUNT 14.1 K/uL (4.8-10.8)
[2017-06-19 06:59] LABS: ALB/GLOB RATIO 1.3 (1.0-2.1); ALBUMIN 3.4 g/dL (3.5-5.0); ALT/SGPT 25 U/L (9-52); AST/SGOT 11 U/L (14-36); BLOOD UREA NITROGEN 25 mg/dL (7-17); CALCIUM 8.8 mg/dl (8.6-10.4); GFR AFRICAN-AMERICAN > 60; GFR NON-AFRICAN AMERICAN > 60
[2017-06-19 07:53] VITALS: RESP 20
[2017-06-19 08:48] LABS: BANDS 2 % (0-2); LYMPHOCYTE 10 % (20-40); MONOCYTE 6 % (0-10); NEUTROPHIL 82 % (50-75); PLATELET ESTIMATE NORMAL (NORMAL); TOTAL CELLS COUNTED 100
[2017-06-19] MEDS: guaiFENesin 600 mg ER Tab PO SCH ×2 (09:16→21:27)
[2017-06-19] MEDS: Pantoprazole 40 mg EC Tab PO SCH (09:16)
[2017-06-19] MEDS: Fluconazole IV 100mg/50 ml NS 50 ML IVPB SCH (09:16)
[2017-06-19] MEDS: Ferric Sodium Gluconat Complex 125 MG in Sodium Chloride 0.9% 100 ML IVPB SCH (09:17)
[2017-06-19] MEDS: Tiotropium 18 mcg Cap For Inhalation INH SCH (09:52)
--- NOTE | 2017-06-19 09:52 | CP.PCM.PN ---
Subjective - Date & Time of Evaluation Date of Evaluation: 06/19/17 Time of Evaluation: 09:34 - Subjective Subjective: PGY-[address] Ramírez. No acute events overnight. Patient was seen and examined. Her appetite is much improved - she again ate her breakfast this morning. Her breathing seems less labored compared to admission. She was AAOx3 today unlike a few days ago when she was AAOx1. She denies chest pain, abdominal pain, shortness of breath, fever , nausea, vomiting. Objective - Vital Signs/Intake and Output Vital Signs (last 24 hours): Temp Pulse Resp BP Pulse Ox 98.3 F 81 20 155/83 H 98 06/19/17 07:50 06/19/17 07:50 06/19/17 07:50 06/19/17 07:50 06/19/17 07:50 Intake and Output: 06/19/17 06/19/17 06:59 18:59 Intake Total 1070 Balance 1070 - Medications Medications: Current Medications Albuterol/Ipratropium (Duoneb 3 Mg/0.5 Mg (3 Ml) Ud) 3 ml INH RQ6 PRN PRN Reason: Shortness of Breath Last Admin: 06/15/17 13:13 Dose: 3 ml Dronabinol (Marinol) 2.5 mg PO BID [facility] Last Admin: 06/19/17 09:16 Dose: 2.5 mg Guaifenesin (Mucinex La) 600 mg PO Q12 [facility] Last Admin: 06/19/17 09:16 Dose: 600 mg Heparin Sodium (Porcine) (Heparin) 5,000 units SC Q8 [facility] Last Admin: 06/19/17 05:38 Dose: 5,000 units Ferric Sodium Gluconate Complex 125 mg/ Sodium Chloride 110 mls @ 110 mls/hr IVPB DAILY [facility] Stop: 06/21/17 13:31 Last Admin: 06/19/17 09:17 Dose: 110 mls/hr Fluconazole (Diflucan Iv 100 Mg/50 Ml Ns) 50 mls @ 100 mls/hr IVPB DAILY [facility] Last Admin: 06/19/17 09:16 Dose: 100 mls/hr Lisinopril (Zestril) 10 mg PO QAM [facility] Last Admin: 06/19/17 09:16 Dose: 10 mg Megestrol Acetate (Megace) 40 mg PO DAILY [facility] Last Admin: 06/19/17 09:16 Dose: 40 mg Methylprednisolone (Solu-Medrol) 40 mg IV Q6 [facility] Last Admin: 06/19/17 05:38 Dose: 40 mg Moxifloxacin HCl (Avelox) 400 mg PO DAILY [facility] Last Admin: 06/19/17 09:17 Dose: 400 mg Nicotine (Nicoderm Cq) 1 patch TD DAILY [facility] Last Admin: 06/19/17 09:16 Dose: 1 patch Pantoprazole Sodium (Protonix Ec Tab) 40 mg PO DAILY [facility] Last Admin: 06/19/17 09:16 Dose: 40 mg Rosuvastatin Calcium (Crestor) 20 mg PO HS [facility] Last Admin: 06/18/17 22:09 Dose: 20 mg Tiotropium [place] (Spiriva) 18 mcg INH RQ24 [facility] Last Admin: 06/18/17 09:46 Dose: Not Given - Labs Labs: 06/19/17 06:28 06/19/17 06:28 PT 13.4 SECONDS (9.7-12.2) H 06/12/17 09:22 INR 1.2 06/12/17 09:22 APTT 30 SECONDS (21-34) 06/12/17 09:22 - Additional Findings Additional findings: - Constitutional Appears: Well, Non-toxic, No Acute Distress, Cachectic, Chronically Ill - Head Exam Head Exam: NORMAL INSPECTION, NORMOCEPHALIC - Eye Exam Eye Exam: EOMI, Normal appearance - ENT Exam ENT Exam: Mucous Membranes Moist - Respiratory Exam Respiratory Exam: Clear to Ausculation Bilateral, NORMAL BREATHING PATTERN - GI/Abdominal Exam GI & Abdominal Exam: Soft, Normal Bowel Sounds. absent: Firm, Guarding, Rigid, Tenderness - Neurological Exam Neurological Exam: Alert, Awake, Oriented x3 Neuro motor strength exam: Left Upper Extremity: 5, Right Upper Extremity: 5, Left Lower Extremity: 5, Right Lower Extremity: 5 - Psychiatric Exam Psychiatric exam: Normal Affect, Normal Mood - Skin Skin Exam: Normal Color, Warm Assessment and Plan (1) Borderline low O2 saturation Status: Acute (2) Hypertension Status: Acute (3) Hyperlipidemia Status: Acute (4) Smoking greater than 40 pack years Status: Acute (5) Weight loss, unintentional Status: Acute (6) Prophylactic measure Status: Acute - Assessment and Plan (Free Text) Assessment: (1) Weight loss, unintentional 90 lb weight loss in 3 months 2/2 decreased appetite; 40 pack year smoking hx; prescribed cyproheptadine outpatient but pt states it did not help her Heme/Onc consult, Dr Page Vitamin B12 703, Folate 14.4, HIV panel NEGATIVE, hepatitis panel NEGATIVE Serum tumor markers CEA, CA 19-9, CA-125, AFP were in normal range Although current imaging does not suggest, underlying malignancy is still possible thus she will need PET scan and colonoscopy (as she has never had one) outpatient Psychiatry consult, Dr Blanchard - to evaluate for depression, F/U recs Imaging: CT chest/abd/pelvis w/ PO and IV contrast does not show any signs of malignancy Breast ultrasound/mammography 12/2016: Hypoechoic nodule in the 5-6 o'clock axis of the right breast with mild macro lobulation, possibly solid nodule. Low suspicion for malignancy. BIRADS 3. * No palpable breast masses on exam Meds: Megestrol 40mg PO QD to stimulate appetite Marinol 2.5 mg PO BID added on 06/15 to further stimulate appetite (2) Bilateral Pneumonia Assessment and Plan: 40 pack year smoking hx; productive cough w/ white sputum for 2 months; recently treated for pneumonia in 03/2017; Pulmonology consult, Dr Pineda * Patient will need a PET scan outpatient. Nasal cannula 2L ABG ordered for baseline values Mycoplasma IgM NEGATIVE, legionella NEGATIVE, strep pneumoniae NEGATIVE, Hep Panel NEGATIVE, HIV Screen NEGATIVE, procalcitonin < 0.05 NEGATIVE Blood culture 06/12 NEGATIVE up to date Urine culture 06/12 NEGATIVE Sputum stain 06/13 NEGATIVE Sputum culture 06/13 grew yeast species Imaging: CT chest/abd/pelvis w/ PO and IV contrast 06/13: Stable left lower lobe infiltrate, new right lower lobe infiltrate. The overall appearance distribution suggests possibility of aspiration pneumonia. Findings are likely infectious/inflammatory perhaps aspiration pneumonia based on distribution and location. CT chest/abd/pelvis 06/12: (1) Respiratory motion artifacts limit evaluation of the chest. Left lower lobe atelectasis is identified however underlying pneumonia is not excluded given medial unilateral appearance/distribution of this finding. Underlying lesion not completely excluded either and follow-up chest CT is recommended after therapy. (2) Likely stable tiny right upper lobe nodules identified. Clinically correlate with risk factors for developing lung cancer. Appears fractures are present along cast on follow-up chest CT is advised in 1 year. Meds: Duonebs INH Q6h PRN Moxifloxacin 400mg PO QD started 06/12 Solumedrol 40mg IV Q6H -> switch to prednisone 8 day taper 06/19/17 Spiriva 18 mcg INH QD Fluconazole 100 mg IV daily started 06/15 Phenergan DM syrup 5 ml Q6H Mucinex 600 mg BID (3) Altermental state, dementia Per psychiatry she maybe having depression - however they have not started any medications. Also possible this AMS is from the ongoing pneumonia as well. We got a head CT and then an MRI to assess for possible mets or CVA and these were negative. Pending an echo, however doubt patient has aortic stenosis or bacterial vegetation since her heart sounds are ok and she is NSR on EKG. Imaging: CT head 06/14: age related degenerative changes without acute intracranial findings MRI Brain w/o contrast: Chronic microvascular ischemic changes, otherwise normal Echo 06/15: LVF normal. LVEF normal. No wall motion abnormalities. Mild Tricuspid regurgitation. No stenosis, prolapse or vegetations noted. (3) Hypertension Lisinopril 10mg PO QD (4) Hyperlipidemia Lipid panel NORMAL Crestor 20mg PO HS (5) Smoking greater than 40 pack years 40 pack year smoking history; currently smokes 1/2 pack per day Prescribed chantix outpatient but not compliant Nicotine patch TD QD (6) Iron Deficiency Likely 2/2 very poor po intake Iron 17 (Low), TIBC 200 (Low), %Saturation 9 (Low), Ferritin 363 Ferrlecit 125mg IVPB QD x2 (stopped 06/14) (7) Hepatic Steatosis CT chest/abd/pelvis w/ PO and IV contrast 06/13: Hepatic steatosis. No focal masses. No intrahepatic bile duct dilatation or perihepatic ascites. 2.2 cm cyst near the dome of the liver. (8) Renal Pelvic Calculus 06/16: She is denying back pain at this time. Because of bilateral pneumonia probably should have out patient follow up, just not now with the pneumonia going on. CT chest/abd/pelvis w/ PO and IV contrast 06/13: Stable left renal calculus disease. Including renal pelvic calculus measuring 1.3 x 2.1 cm. Additional smaller lower pole calculi the largest 8.5 mm. Distention of the left collecting system unchanged. (9) Prophylactic measure Protonix 40mg PO QD SCDs, Heparin 5000u SC Q8H Heart Healthy Diet PT/OT eval and treat Daughter, Carolina, #[phone]
--- NOTE | 2017-06-19 13:04 | CP.PCM.PN ---
Subjective - Date & Time of Evaluation Date of Evaluation: 06/17/17 Time of Evaluation: 16:50 - Subjective Subjective: No complaints, eating more Objective - Vital Signs/Intake and Output Vital Signs (last 24 hours): Temp Pulse Resp BP Pulse Ox 98.3 F 81 20 155/83 H 98 06/19/17 07:50 06/19/17 10:35 06/19/17 07:50 06/19/17 10:35 06/19/17 10:35 Intake and Output: 06/19/17 06/19/17 06:59 18:59 Intake Total 1070 Balance 1070 - Medications Medications: Current Medications Albuterol/Ipratropium (Duoneb 3 Mg/0.5 Mg (3 Ml) Ud) 3 ml INH RQ6 PRN PRN Reason: Shortness of Breath Last Admin: 06/15/17 13:13 Dose: 3 ml Dronabinol (Marinol) 2.5 mg PO BID [facility] Last Admin: 06/19/17 09:16 Dose: 2.5 mg Guaifenesin (Mucinex La) 600 mg PO Q12 [facility] Last Admin: 06/19/17 09:16 Dose: 600 mg Heparin Sodium (Porcine) (Heparin) 5,000 units SC Q8 [facility] Last Admin: 06/19/17 05:38 Dose: 5,000 units Ferric Sodium Gluconate Complex 125 mg/ Sodium Chloride 110 mls @ 110 mls/hr IVPB DAILY [facility] Stop: 06/21/17 13:31 Last Admin: 06/19/17 09:17 Dose: 110 mls/hr Fluconazole (Diflucan Iv 100 Mg/50 Ml Ns) 50 mls @ 100 mls/hr IVPB DAILY [facility] Last Admin: 06/19/17 09:16 Dose: 100 mls/hr Lisinopril (Zestril) 10 mg PO QAM [facility] Last Admin: 06/19/17 09:16 Dose: 10 mg Megestrol Acetate (Megace) 40 mg PO DAILY [facility] Last Admin: 06/19/17 09:16 Dose: 40 mg Methylprednisolone (Solu-Medrol) 40 mg IV Q6 [facility] Last Admin: 06/19/17 12:16 Dose: 40 mg Moxifloxacin HCl (Avelox) 400 mg PO DAILY [facility] Last Admin: 06/19/17 09:17 Dose: 400 mg Nicotine (Nicoderm Cq) 1 patch TD DAILY [facility] Last Admin: 06/19/17 09:16 Dose: 1 patch Pantoprazole Sodium (Protonix Ec Tab) 40 mg PO DAILY [facility] Last Admin: 06/19/17 09:16 Dose: 40 mg Rosuvastatin Calcium (Crestor) 20 mg PO HS [facility] Last Admin: 06/18/17 22:09 Dose: 20 mg Tiotropium [place] (Spiriva) 18 mcg INH RQ24 [facility] Last Admin: 06/19/17 09:52 Dose: Not Given - Labs Labs: 06/19/17 06:28 06/19/17 06:28 PT 13.4 SECONDS (9.7-12.2) H 06/12/17 09:22 INR 1.2 06/12/17 09:22 APTT 30 SECONDS (21-34) 06/12/17 09:22 - Head Exam Head Exam: ATRAUMATIC - Eye Exam Eye Exam: Normal appearance - ENT Exam ENT Exam: Mucous Membranes Dry - Respiratory Exam Respiratory Exam: NORMAL BREATHING PATTERN - Cardiovascular Exam Cardiovascular Exam: +S1, +S2 - GI/Abdominal Exam GI & Abdominal Exam: Normal Bowel Sounds Assessment and Plan (1) Unintended weight loss Assessment & Plan: LLL infiltrate ? infectious, ? inflammatory ? malignancy outpatient PET CT scan after completion of antibiotics Status: Acute
--- NOTE | 2017-06-19 13:05 | CP.PCM.PN ---
Subjective - Date & Time of Evaluation Date of Evaluation: 06/19/17 Time of Evaluation: 11:50 - Subjective Subjective: Reports eating a lot Objective - Vital Signs/Intake and Output Vital Signs (last 24 hours): Temp Pulse Resp BP Pulse Ox 98.3 F 81 20 155/83 H 98 06/19/17 07:50 06/19/17 10:35 06/19/17 07:50 06/19/17 10:35 06/19/17 10:35 Intake and Output: 06/19/17 06/19/17 06:59 18:59 Intake Total 1070 Balance 1070 - Medications Medications: Current Medications Albuterol/Ipratropium (Duoneb 3 Mg/0.5 Mg (3 Ml) Ud) 3 ml INH RQ6 PRN PRN Reason: Shortness of Breath Last Admin: 06/15/17 13:13 Dose: 3 ml Dronabinol (Marinol) 2.5 mg PO BID [facility] Last Admin: 06/19/17 09:16 Dose: 2.5 mg Guaifenesin (Mucinex La) 600 mg PO Q12 [facility] Last Admin: 06/19/17 09:16 Dose: 600 mg Heparin Sodium (Porcine) (Heparin) 5,000 units SC Q8 [facility] Last Admin: 06/19/17 05:38 Dose: 5,000 units Ferric Sodium Gluconate Complex 125 mg/ Sodium Chloride 110 mls @ 110 mls/hr IVPB DAILY [facility] Stop: 06/21/17 13:31 Last Admin: 06/19/17 09:17 Dose: 110 mls/hr Fluconazole (Diflucan Iv 100 Mg/50 Ml Ns) 50 mls @ 100 mls/hr IVPB DAILY [facility] Last Admin: 06/19/17 09:16 Dose: 100 mls/hr Lisinopril (Zestril) 10 mg PO QAM [facility] Last Admin: 06/19/17 09:16 Dose: 10 mg Megestrol Acetate (Megace) 40 mg PO DAILY [facility] Last Admin: 06/19/17 09:16 Dose: 40 mg Methylprednisolone (Solu-Medrol) 40 mg IV Q6 [facility] Last Admin: 06/19/17 12:16 Dose: 40 mg Moxifloxacin HCl (Avelox) 400 mg PO DAILY [facility] Last Admin: 06/19/17 09:17 Dose: 400 mg Nicotine (Nicoderm Cq) 1 patch TD DAILY [facility] Last Admin: 06/19/17 09:16 Dose: 1 patch Pantoprazole Sodium (Protonix Ec Tab) 40 mg PO DAILY [facility] Last Admin: 06/19/17 09:16 Dose: 40 mg Rosuvastatin Calcium (Crestor) 20 mg PO HS [facility] Last Admin: 06/18/17 22:09 Dose: 20 mg Tiotropium [place] (Spiriva) 18 mcg INH RQ24 [facility] Last Admin: 06/19/17 09:52 Dose: Not Given - Labs Labs: 06/19/17 06:28 06/19/17 06:28 PT 13.4 SECONDS (9.7-12.2) H 06/12/17 09:22 INR 1.2 06/12/17 09:22 APTT 30 SECONDS (21-34) 06/12/17 09:22 - Head Exam Head Exam: ATRAUMATIC - Eye Exam Eye Exam: Normal appearance - ENT Exam ENT Exam: Mucous Membranes Dry - Respiratory Exam Respiratory Exam: NORMAL BREATHING PATTERN - Cardiovascular Exam Cardiovascular Exam: +S1, +S2 - GI/Abdominal Exam GI & Abdominal Exam: Normal Bowel Sounds Assessment and Plan (1) Unintended weight loss Assessment & Plan: LLL infiltrate ? infectious, ? inflammatory ? malignancy outpatient PET CT scan after completion of antibiotics Status: Acute
--- NOTE | 2017-06-19 14:21 | CP.PCM.PN ---
Subjective - Date & Time of Evaluation Date of Evaluation: 06/19/17 Time of Evaluation: 08:00 - Subjective Subjective: the patient seen and examined Lying comfortably in no acute distress No shortness of breath Less cough afebrile Continue antibiotics repeat CAT scan chest in 2 weeks Objective - Vital Signs/Intake and Output Vital Signs (last 24 hours): Temp Pulse Resp BP Pulse Ox 98.3 F 81 20 155/83 H 98 06/19/17 07:50 06/19/17 10:35 06/19/17 07:50 06/19/17 10:35 06/19/17 10:35 Intake and Output: 06/19/17 06/19/17 06:59 18:59 Intake Total 1070 650 Balance 1070 650 - Medications Medications: Current Medications Albuterol/Ipratropium (Duoneb 3 Mg/0.5 Mg (3 Ml) Ud) 3 ml INH RQ6 PRN PRN Reason: Shortness of Breath Last Admin: 06/15/17 13:13 Dose: 3 ml Dronabinol (Marinol) 2.5 mg PO BID [facility] Last Admin: 06/19/17 09:16 Dose: 2.5 mg Guaifenesin (Mucinex La) 600 mg PO Q12 [facility] Last Admin: 06/19/17 09:16 Dose: 600 mg Heparin Sodium (Porcine) (Heparin) 5,000 units SC Q8 [facility] Last Admin: 06/19/17 13:15 Dose: 5,000 units Ferric Sodium Gluconate Complex 125 mg/ Sodium Chloride 110 mls @ 110 mls/hr IVPB DAILY [facility] Stop: 06/21/17 13:31 Last Admin: 06/19/17 09:17 Dose: 110 mls/hr Fluconazole (Diflucan Iv 100 Mg/50 Ml Ns) 50 mls @ 100 mls/hr IVPB DAILY [facility] Last Admin: 06/19/17 09:16 Dose: 100 mls/hr Lisinopril (Zestril) 10 mg PO QAM [facility] Last Admin: 06/19/17 09:16 Dose: 10 mg Megestrol Acetate (Megace) 40 mg PO DAILY [facility] Last Admin: 06/19/17 09:16 Dose: 40 mg Methylprednisolone (Solu-Medrol) 40 mg IV Q6 [facility] Last Admin: 06/19/17 12:16 Dose: 40 mg Moxifloxacin HCl (Avelox) 400 mg PO DAILY [facility] Last Admin: 06/19/17 09:17 Dose: 400 mg Nicotine (Nicoderm Cq) 1 patch TD DAILY [facility] Last Admin: 06/19/17 09:16 Dose: 1 patch Pantoprazole Sodium (Protonix Ec Tab) 40 mg PO DAILY [facility] Last Admin: 06/19/17 09:16 Dose: 40 mg Rosuvastatin Calcium (Crestor) 20 mg PO HS [facility] Last Admin: 06/18/17 22:09 Dose: 20 mg Tiotropium [place] (Spiriva) 18 mcg INH RQ24 [facility] Last Admin: 06/19/17 09:52 Dose: Not Given - Labs Labs: 06/19/17 06:28 06/19/17 06:28 PT 13.4 SECONDS (9.7-12.2) H 06/12/17 09:22 INR 1.2 06/12/17 09:22 APTT 30 SECONDS (21-34) 06/12/17 09:22 Assessment and Plan (1) COPD exacerbation Status: Acute (2) LLL pneumonia Status: Acute
--- NOTE | 2017-06-19 14:24 | CARD ---
APPROVED REPORT EXAM: Two-dimensional and M-mode echocardiogram with Doppler and color Doppler. Other Information Quality : TDSRhythm : INDICATION Dizziness and Vertigo RISK FACTORS Hypertension Hyperlipidemia 2D DIMENSIONS IVSd0.7 (0.7-1.1cm)LVDd4.2 (3.9-5.9cm) PWd0.7 (0.7-1.1cm)LVDs2.7 (2.5-4.0cm) FS (%) 36.4 %LVEF (%)66.5 (>50%) M-Mode DIMENSIONS Left Atrium (MM)1.70 (2.5-4.0cm)Aortic Root3.17 (2.2-3.7cm) Mitral Valve MV E Nlbdupui61.5cm/sMV A Gzixfbpg31.1cm/sE/A ratio0.7 TDI E/Lateral E'0.0E/Medial E'0.0 Tricuspid Valve TR Peak [id number]/sTR Peak [id number] LEFT VENTRICLE The left ventricle is normal size. There is normal left ventricular wall thickness. The left ventricular function is normal. The left ventricular ejection fraction is within the normal range. No regional wall motion abnormalities noted. Transmitral Doppler flow pattern is Grade I-abnormal relaxation pattern. No left ventricle thrombus noted on this study. There is no ventricular septal defect visualized. There is no left ventricular aneurysm. There is no mass noted in the left ventricle. RIGHT VENTRICLE The right ventricle is normal size. There is normal right ventricular wall thickness. The right ventricular systolic function is normal. ATRIA The left atrium size is normal. The right atrium size is normal. The interatrial septum is intact with no evidence for an atrial septal defect. AORTIC VALVE The aortic valve is normal in structure and function. No aortic regurgitation is present. There is no aortic valvular stenosis. There is no aortic valvular vegetation. MITRAL VALVE The mitral valve is normal in structure and function. There is no evidence of mitral valve prolapse. There is no mitral valve stenosis. There is no mitral valve regurgitation noted. TRICUSPID VALVE The tricuspid valve is normal in structure and function. There is mild tricuspid regurgitation. Right ventricular systolic pressure is estimated at 30-40 mmHg. There is no tricuspid valve prolapse or vegetation. There is no tricuspid valve stenosis. PULMONIC VALVE The pulmonary valve is normal in structure and function. There is no pulmonic valvular regurgitation. There is no pulmonic valvular stenosis. GREAT VESSELS The aortic root is normal in size. The ascending aorta is normal in size. The pulmonary artery is normal. The IVC is normal in size and collapses >50% with inspiration. PERICARDIAL EFFUSION The pericardium appears normal. There is no pleural effusion. <Conclusion> The left ventricular function is normal. The left ventricular ejection fraction is within the normal range. No regional wall motion abnormalities noted. Transmitral Doppler flow pattern is Grade I-abnormal relaxation pattern. There is mild tricuspid regurgitation. Right ventricular systolic pressure is estimated at 30-40 mmHg.
[2017-06-20 07:15] LABS: BASO # 0.1 K/uL (0.0-0.2); BASO % 0.6 % (0.0-2.0); EOS % 0.1 % (0.0-4.0); HEMOGLOBIN 14.9 g/dL (11.0-16.0); LYMPH # 3.3 K/uL (1.0-4.3); LYMPH % 20.5 % (20.0-40.0); MEAN CELL VOLUME 93.7 fL (81.0-99.0); MEAN CORPUSCULAR HEMOGLOBIN 31.6 pg (27.0-31.0); MEAN CORPUSCULAR HGB CONC 33.7 g/dL (33.0-37.0); MONO # 1.2 K/uL (0.0-0.8); MONO % 7.2 % (0.0-10.0); NEUT # 11.5 K/uL (1.8-7.0); NEUT % 71.6 % (50.0-75.0); RBC 4.72 Mil/uL (3.80-5.20); RED CELL DISTRIBUTION WIDTH 12.8 % (11.5-14.5)
--- NOTE | 2017-06-20 07:36 | CP.PCM.DIS ---
Provider - Provider Date of Admission: 06/12/17 12:13 Attending physician: Bryson Schwab DO Primary care physician: PMD: Dr Kim Consults: Pulmonology: Dr Pineda Hematology/Oncology: Dr Zechariah Page Psychiatry: Dr Blanchard Time Spent in preparation of Discharge (in minutes): 55 Diagnosis - Discharge Diagnosis (1) Borderline low O2 saturation Status: Chronic Priority: High (2) Hypertension Status: Chronic Priority: Medium (3) Hyperlipidemia Status: Chronic Priority: Medium (4) Smoking greater than 40 pack years Status: Chronic Priority: High (5) Weight loss, unintentional Status: Acute Priority: Medium (6) Prophylactic measure Status: Acute Priority: Low Hospital Course - Lab Results Lab Results: Micro Results 06/12/17 09:45 Blood Blood Culture - Final NO GROWTH AFTER 5 DAYS 06/12/17 09:45 Blood Gram Stain - Final TEST NOT PERFORMED 06/12/17 17:10 Blood Blood Culture - Final NO GROWTH AFTER 5 DAYS 06/12/17 17:10 Blood Gram Stain - Final TEST NOT PERFORMED 06/13/17 10:49 Sputum Gram Stain - Final 06/13/17 10:49 Sputum Sputum Culture - Final Yeast Species 06/12/17 09:41 Urine Urine Culture - Final <10,000 CFU/ML. MULTIPLE SPECIES. PROBABLE CONTAMINATION. Most Recent Lab Values WBC 16.0 K/uL (4.8-10.8) H 06/20/17 07:05 RBC 4.72 Mil/uL (3.80-5.20) 06/20/17 07:05 Hgb 14.9 g/dL (11.0-16.0) 06/20/17 07:05 Hct 44.2 % (34.0-47.0) 06/20/17 07:05 MCV 93.7 fL (81.0-99.0) 06/20/17 07:05 MCH 31.6 pg (27.0-31.0) H 06/20/17 07:05 MCHC 33.7 g/dL (33.0-37.0) 06/20/17 07:05 RDW 12.8 % (11.5-14.5) 06/20/17 07:05 Plt Count 415 K/uL (130-400) H 06/20/17 07:05 MPV 7.0 fL (7.2-11.7) L 06/20/17 07:05 Neut % (Auto) 71.6 % (50.0-75.0) 06/20/17 07:05 Lymph % (Auto) 20.5 % (20.0-40.0) 06/20/17 07:05 Vigo % (Auto) 7.2 % (0.0-10.0) 06/20/17 07:05 Eos % (Auto) 0.1 % (0.0-4.0) 06/20/17 07:05 Baso % (Auto) 0.6 % (0.0-2.0) 06/20/17 07:05 Neut # 11.5 K/uL (1.8-7.0) H 06/20/17 07:05 Lymph # 3.3 K/uL (1.0-4.3) 06/20/17 07:05 Vigo # 1.2 K/uL (0.0-0.8) H 06/20/17 07:05 Eos # 0.0 K/uL (0.0-0.7) 06/20/17 07:05 Baso # 0.1 K/uL (0.0-0.2) 06/20/17 07:05 Neutrophils % (Manual) 82 % (50-75) H 06/19/17 06:28 Band Neutrophils % 2 % (0-2) 06/19/17 06:28 Lymphocytes % (Manual) 10 % (20-40) L 06/19/17 06:28 Monocytes % (Manual) 6 % (0-10) 06/19/17 06:28 Toxic Granulation Present 06/18/17 07:22 Platelet Estimate Normal (NORMAL) 06/19/17 06:28 Large Platelets Present 06/18/17 07:22 Giant Platelets Present 06/17/17 07:43 RBC Morphology Normal 06/19/17 06:28 Anisocytosis (manual) Slight 06/18/17 07:22 PT 13.4 SECONDS (9.7-12.2) H 06/12/17 09:22 INR 1.2 06/12/17 09:22 APTT 30 SECONDS (21-34) 06/12/17 09:22 Sodium 133 mmol/L (132-148) 06/19/17 06:28 Potassium 4.2 mmol/L (3.6-5.2) 06/19/17 06:28 Chloride 93 mmol/L (98-107) L 06/19/17 06:28 Carbon Dioxide 36 mmol/L (22-30) H 06/19/17 06:28 Anion Gap 8 (10-20) L 06/19/17 06:28 BUN 25 mg/dL (7-17) H 06/19/17 06:28 Creatinine 0.4 mg/dL (0.7-1.2) L 06/19/17 06:28 Est GFR ( Amer) > 60 06/19/17 06:28 Est GFR (Non-Af Amer) > 60 06/19/17 06:28 Random Glucose 240 mg/dL (65-105) H 06/19/17 06:28 Hemoglobin A1c 5.7 % (4.2-6.5) 06/12/17 17:10 Calcium 8.8 mg/dl (8.6-10.4) 06/19/17 06:28 Phosphorus 3.2 mg/dL (2.5-4.5) 06/12/17 09:22 Magnesium 1.6 mg/dL (1.6-2.3) 06/12/17 09:22 Iron 17 ug/dL (37-170) L 06/12/17 17:10 TIBC 200 ug/dL (250-450) L 06/12/17 17:10 % Saturation 9 (20-55) L 06/12/17 17:10 Ferritin 363.0 ng/mL 06/12/17 17:10 Total Bilirubin 0.3 mg/dL (0.2-1.3) 06/19/17 06:28 AST 11 U/L (14-36) L D 06/19/17 06:28 ALT 25 U/L (9-52) 06/19/17 06:28 Alkaline Phosphatase 34 U/L (38-126) L 06/19/17 06:28 Troponin I < 0.0120 ng/mL (0.00-0.120) 06/12/17 09:22 NT-Pro-B Natriuret Pep 288 pg/mL (0-900) 06/12/17 09:22 Total Protein 6.0 g/dL (6.3-8.3) L 06/19/17 06:28 Albumin 3.4 g/dL (3.5-5.0) L 06/19/17 06:28 Globulin 2.6 gm/dL (2.2-3.9) 06/19/17 06:28 Albumin/Globulin Ratio 1.3 (1.0-2.1) 06/19/17 06:28 Triglycerides 70 mg/dL (0-149) 06/13/17 11:25 Cholesterol 147 mg/dL (0-199) 06/13/17 11:25 LDL Cholesterol Direct 81 mg/dL (0-129) 06/13/17 11:25 HDL Cholesterol 44 mg/dL (30-70) 06/13/17 11:25 Alpha Fetoprotein 1.5 ng/mL (0.0-7.5) 06/14/17 14:22 Carcinoembryonic Ag 2.8 ng/mL (0-3.0) 06/14/17 14:22 CA 19-9 Antigen 24.7 U/mL (0-37) 06/14/17 14:22 CA 125 Antigen 21.1 U/mL (0-35) 06/14/17 14:22 Vitamin B12 703 pg/mL (239-931) 06/12/17 17:10 Folate 14.4 ng/mL 06/12/17 17:10 Procalcitonin < 0.05 NG/ML (0.19-0.49) L 06/12/17 17:10 Free T4 1.03 ng/dL (0.78-2.19) 06/12/17 09:22 TSH 3rd Generation 0.65 mIU/L (0.46-4.68) 06/12/17 09:22 Urine Color Yellow (YELLOW) 06/12/17 09:37 Urine Clarity Clear (Clear) 06/12/17 09:37 Urine pH 7.0 (5.0-8.0) 06/12/17 09:37 Ur Specific [place] 1.014 (1.003-1.030) 06/12/17 09:37 Urine Protein 1+ mg/dL (NEGATIVE) H 06/12/17 09:37 Urine Glucose (UA) Normal mg/dL (Normal) 06/12/17 09:37 Urine Ketones Negative mg/dL (NEGATIVE) 06/12/17 09:37 Urine Blood 2+ (NEGATIVE) H 06/12/17 09:37 Urine Nitrate Negative (NEGATIVE) 06/12/17 09:37 Urine Bilirubin Negative (NEGATIVE) 06/12/17 09:37 Urine Urobilinogen Normal mg/dL (0.2-1.0) 06/12/17 09:37 Ur Leukocyte Esterase Neg Nellie/uL (Negative) 06/12/17 09:37 Urine WBC (Auto) 4 /hpf (0-5) 06/12/17 09:37 Urine RBC (Auto) 32 /hpf (0-3) H 06/12/17 09:37 Ur Squamous Epith Cells < 1 /hpf (0-5) 06/12/17 09:37 Hepatitis A IgM Ab Negative (NEGATIVE) 06/12/17 17:10 Hep Bs Antigen Negative (NEGATIVE) 06/12/17 17:10 Hep B Core IgM Ab Negative (NEGATIVE) 06/12/17 17:10 Hepatitis C Antibody Negative (NEGATIVE) 06/12/17 17:10 HIV 1&2 Antibody Screen Negative (NEGATIVE) 06/12/17 17:10 Ur L.pneumophila Ag Negative (NEGATIVE) 06/12/17 14:48 Mycoplasma pneumon IgG 1.40 (<=0.90) H 06/12/17 17:10 Mycoplasma pneumon IgM 70 U/mL (<770) 06/12/17 17:10 Ur Strep pneumoniae Ag Not detected 06/12/17 20:03 - Hospital Course Hospital Course: CC: "I feel dizzy" HPI: Mrs House is a 67 year old danish speaking female who presented to the ER by ambulance for 2 weeks of worsening dizziness and lightheadedness. She states that she occasionally feels as if the room is spinning. She denies syncopal episodes or falls. 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 She is a current smoker and has a 40 pack year smoking history. She states that she's lost 80 lbs in the last 3 months secondary to decreased appetite. 2 months ago she was diagnosed with pneumonia and completed a 2 week course of antibiotics. She states that since that time she has had a productive cough with white sputum production, which is worse in the mornings. In 12/2016 she had a breast ultrasound/mammography which showed a hypoechoic nodule in the right breast, possibly a solid nodule, which was a low suspicion for malignancy. She denies chest pain, abdominal pain, dysuria, fever, chills, nausea, vomiting, focal deficits, seizure activity, diarrhea. 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 Mrs House was worked up for unintentional weight loss and bilateral pneumonia. Heme/Onc, Dr Page, and Pulmonology, Dr Pineda, were consulted. CT chest indicated pneumonia thus she was given appropriate antibiotics which progressively resolved her symptoms. However underlying lesion was not completely excluded which worried us given her unintentional weight loss and extensive smoking history. There is also a component of COPD as she is a chronic CO2 retainer - thus she was given Spiriva, Duonebs INH Q6h and Solumedrol which was tapered to prednisone oral. Common serum tumor markers were ordered which were all in the normal range. An underlying malignancy could be possible thus it is imperative she gets a chest PET scan and a colonoscopy outpatient. Her mental status also improved during her stay - by discharge she was AAOx3. Psychiatry was consulted and they thought depression could be at play however they did not start her on any antidepressants. The AMS could have been from the ongoing pneumonia or possibly new onset dementia. CT head and MRI brain were ordered which showed chronic microvascular ischemic changes, otherwise normal. She was also iron deficient thus was given ferrlecit IV. Her chronic conditions of HTN and HLD were treated appropriately. See my latest progress note below: (1) Weight loss, unintentional 90 lb weight loss in 3 months 2/2 decreased appetite; 40 pack year smoking hx; prescribed cyproheptadine outpatient but pt states it did not help her Heme/Onc consult, Dr Page Vitamin B12 703, Folate 14.4, HIV panel NEGATIVE, hepatitis panel NEGATIVE Serum tumor markers CEA, CA 19-9, CA-125, AFP were in normal range Although current imaging does not suggest, underlying malignancy is still possible thus she will need PET scan and colonoscopy (as she has never had one) outpatient Psychiatry consult, Dr Blanchard - to evaluate for depression, F/U recs Imaging: CT chest/abd/pelvis w/ PO and IV contrast does not show any signs of malignancy Breast ultrasound/mammography 12/2016: Hypoechoic nodule in the 5-6 o'clock axis of the right breast with mild macro lobulation, possibly solid nodule. Low suspicion for malignancy. BIRADS 3. * No palpable breast masses on exam Meds: Megestrol 40mg PO QD to stimulate appetite Marinol 2.5 mg PO BID added on 06/15 to further stimulate appetite (2) Bilateral Pneumonia Assessment and Plan: 40 pack year smoking hx; productive cough w/ white sputum for 2 months; recently treated for pneumonia in 03/2017; Pulmonology consult, Dr Pineda * Patient will need a PET scan outpatient. Nasal cannula 2L ABG ordered for baseline values Mycoplasma IgM NEGATIVE, legionella NEGATIVE, strep pneumoniae NEGATIVE, Hep Panel NEGATIVE, HIV Screen NEGATIVE, procalcitonin < 0.05 NEGATIVE Blood culture 06/12 NEGATIVE up to date Urine culture 06/12 NEGATIVE Sputum stain 06/13 NEGATIVE Sputum culture 06/13 grew yeast species Imaging: CT chest/abd/pelvis w/ PO and IV contrast 06/13: Stable left lower lobe infiltrate, new right lower lobe infiltrate. The overall appearance distribution suggests possibility of aspiration pneumonia. Findings are likely infectious/inflammatory perhaps aspiration pneumonia based on distribution and location. CT chest/abd/pelvis 06/12: (1) Respiratory motion artifacts limit evaluation of the chest. Left lower lobe atelectasis is identified however underlying pneumonia is not excluded given medial unilateral appearance/distribution of this finding. Underlying lesion not completely excluded either and follow-up chest CT is recommended after therapy. (2) Likely stable tiny right upper lobe nodules identified. Clinically correlate with risk factors for developing lung cancer. Appears fractures are present along cast on follow-up chest CT is advised in 1 year. Meds: Duonebs INH Q6h PRN Moxifloxacin 400mg PO QD started 06/12 Solumedrol 40mg IV Q6H -> switch to prednisone day taper 06/19/17 Spiriva 18 mcg INH QD Fluconazole 100 mg IV daily started 06/15 Phenergan DM syrup 5 ml Q6H Mucinex 600 mg BID (3) Altermental state, dementia Per psychiatry she maybe having depression - however they have not started any medications. Also possible this AMS is from the ongoing pneumonia as well. We got a head CT and then an MRI to assess for possible mets or CVA and these were negative. Pending an echo, however doubt patient has aortic stenosis or bacterial vegetation since her heart sounds are ok and she is NSR on EKG. Imaging: CT head 06/14: age related degenerative changes without acute intracranial findings MRI Brain w/o contrast: Chronic microvascular ischemic changes, otherwise normal Echo 06/15: LVF normal. LVEF normal. No wall motion abnormalities. Mild Tricuspid regurgitation. No stenosis, prolapse or vegetations noted. (3) Hypertension Lisinopril 10mg PO QD (4) Hyperlipidemia Lipid panel NORMAL Crestor 20mg PO HS (5) Smoking greater than 40 pack years 40 pack year smoking history; currently smokes 1/2 pack per day Prescribed chantix outpatient but not compliant Nicotine patch TD QD (6) Iron Deficiency Likely 2/2 very poor po intake Iron 17 (Low), TIBC 200 (Low), %Saturation 9 (Low), Ferritin 363 Ferrlecit 125mg IVPB QD x2 (stopped 06/14) (7) Hepatic Steatosis CT chest/abd/pelvis w/ PO and IV contrast 06/13: Hepatic steatosis. No focal masses. No intrahepatic bile duct dilatation or perihepatic ascites. 2.2 cm cyst near the dome of the liver. (8) Renal Pelvic Calculus 06/16: She is denying back pain at this time. Because of bilateral pneumonia probably should have out patient follow up, just not now with the pneumonia going on. CT chest/abd/pelvis w/ PO and IV contrast 06/13: Stable left renal calculus disease. Including renal pelvic calculus measuring 1.3 x 2.1 cm. Additional smaller lower pole calculi the largest 8.5 mm. Distention of the left collecting system unchanged. (9) Prophylactic measure Protonix 40mg PO QD SCDs, Heparin 5000u SC Q8H Heart Healthy Diet PT/OT eval and treat Daughter, Carolina, #[phone] Discharge Exam - Head Exam Head Exam: ATRAUMATIC - Additional Findings Additional findings: - Constitutional Appears: Well, Non-toxic, No Acute Distress, Cachectic, Chronically Ill - Head Exam Head Exam: NORMAL INSPECTION, NORMOCEPHALIC - Eye Exam Eye Exam: EOMI, Normal appearance - ENT Exam ENT Exam: Mucous Membranes Moist - Respiratory Exam Respiratory Exam: Clear to Ausculation Bilateral, NORMAL BREATHING PATTERN - GI/Abdominal Exam GI & Abdominal Exam: Soft, Normal Bowel Sounds. absent: Firm, Guarding, Rigid, Tenderness - Neurological Exam Neurological Exam: Alert, Awake, Oriented x3 Neuro motor strength exam: Left Upper Extremity: 5, Right Upper Extremity: 5, Left Lower Extremity: 5, Right Lower Extremity: 5 - Psychiatric Exam Psychiatric exam: Normal Affect, Normal Mood - Skin Skin Exam: Normal Color, Warm Discharge Plan - Discharge Medications Prescriptions: Albuterol HFA [Ventolin HFA 90 mcg/actuation (8 g)] 2 puff IH [id number] #1 puff Dronabinol [Marinol] 2.5 mg PO BID #20 cap Ferrous Gluconate [Iron] 236 mg PO DAILY #30 tablet Lisinopril [Zestril] 1 tab PO QAM #30 tab Methylprednisolone [Medrol Dose Pack (21 tabs)] 4 mg PO DAILY #21 mg Moxifloxacin [Avelox] 400 mg PO DAILY 4 Days #4 tab Nicotine 21 mg/24 hr [Nicoderm Cq] 1 patch TD DAILY 30 Days #30 patch Rosuvastatin Calcium 1 tab PO QAM 30 Days #30 tablet - Follow Up Plan Condition: FAIR Disposition: HOME/ ROUTINE Instructions: Weakness (ED) Additional Instructions: Patient is medically stable for discharge. The patient will be given the following scripts for medications she should take as instructed: 1. Albuterol HFA, take 2 puffs every 6 hours when short of breath 2. Dronabinol 2.5mg, take 1 tablet before breakfast and 1 tablet before dinner ( this is to stimulate her appetite) 3. Ferrous Gluconate 236mg, take 1 tablet with breakfast (this is to increase her Iron levels) 4. Lisinopril 10mg, take 1 tablet with breakfast (this is for high blood pressure) 5. Modrol Dose Pack - follow the instructions included in the box (this is a taper to wean her off the steroids she was receiving in the hospital) 6. Moxifloxacin 400mg, take 1 tablet with breakfast (these are antibiotics for 4 days to treat her pneumonia) 7. Nicotine patch - apply new patch every morning (this is to help her quit smoking) 8. Crestor 20mg, take 1 tablet at bedtime (this is for high cholesterol) No refills will be given, the refills will need to be obtained by her PMD, Dr Kim. The patient will need to follow-up with her PMD, Dr Kim within 10 days. A copy of the discharge summary will be faxed to him so he is aware of this admission. 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 The patient will need a PET scan and a colonoscopy outpatient to rule out an underlying malignancy - this is extremely important! Referrals: Rodrigo Kim [Staff Provider] -
[2017-06-20 07:43] LABS: ALB/GLOB RATIO 1.2 (1.0-2.1); ALBUMIN 3.4 g/dL (3.5-5.0); ALT/SGPT 34 U/L (9-52); AST/SGOT 14 U/L (14-36); BLOOD UREA NITROGEN 26 mg/dL (7-17); GFR AFRICAN-AMERICAN > 60; GFR NON-AFRICAN AMERICAN > 60
[2017-06-20 08:38] VITALS: BP 107/71; PULSE 67; TEMP 97.6; O2SAT 96
[2017-06-20] MEDS: Tiotropium 18 mcg Cap For Inhalation INH SCH (09:22)
[2017-06-20] MEDS: Fluconazole IV 100mg/50 ml NS 50 ML IVPB SCH (09:36)
[2017-06-20] MEDS: Pantoprazole 40 mg EC Tab PO SCH (09:40)
[2017-06-20] MEDS ORDERED: Ferric Sodium Gluconat Complex 62.5 mg/5 ml Vial ONE (09:42)
[2017-06-20] MEDS: guaiFENesin 600 mg ER Tab PO SCH (09:44)
[2017-06-20] MEDS: Ferric Sodium Gluconat Complex 125 MG in Sodium Chloride 0.9% 100 ML IVPB SCH (10:35)
[2017-06-20] MEDS ORDERED: Pneumococcal 23-Valent Vaccine IM ONE (11:29)
== END 2017-06-20 15:49 | disposition home or self-care (01) | DRG 541 ==
LOC: C.ER 08:14 → C.9E 12:13 → C.3T 13:15
PROVIDERS: ADMIT Hospitalist; ATTEND Hospitalist
DX: J44.0 Chronic obstructive pulmonary disease with (acute) lower respiratory infection (principal); J18.9 Pneumonia, unspecified organism; F03.90 Unspecified dementia, unspecified severity, without behavioral disturbance, psychotic disturbance, mood disturbance, and anxiety; N13.2 Hydronephrosis with renal and ureteral calculous obstruction; J98.11 Atelectasis; K76.0 Fatty (change of) liver, not elsewhere classified; J44.1 Chronic obstructive pulmonary disease with (acute) exacerbation; E78.00 Pure hypercholesterolemia, unspecified; R63.4 Abnormal weight loss; F17.210 Nicotine dependence, cigarettes, uncomplicated; I10 Essential (primary) hypertension; E61.1 Iron deficiency; F32.9 Major depressive disorder, single episode, unspecified